=== PATIENT | male | born 1990 | race Caucasian/White ===

== ENCOUNTER 2020-07-06 10:17 | Emergency (ER) | payer BC, SELFPAY ==
--- NOTE | 2020-07-06 | ECG_ITS ---
Test Reason : CHEST PRESSURE Blood Pressure : / mmHG Vent. Rate : 096 BPM Atrial Rate : 096 BPM P-R Int : 160 ms QRS Dur : 090 ms QT Int : 348 ms P-R-T Axes : 071 058 030 degrees QTc Int : 439 ms Normal sinus rhythm Normal ECG No previous ECGs available Referred By: Marlen Boyer Electronically Signed By:RALPH FLYNN MD
[2020-07-06 10:31] VITALS: BP 125/72; PULSE 89; RESP 17; TEMP 36.7; O2SAT 99; BMI 29.8
--- NOTE | 2020-07-06 10:53 | XR_ITS ---
EXAMINATION: XR CHEST CLINICAL INFORMATION: Chest pain COMPARISON: None TECHNIQUE: 2 views of the chest were obtained. FINDINGS: No significant abnormality is noted involving the heart, lungs, mediastinum, bony thorax or soft tissues. XR/XR chest 2V IMPRESSION: Unremarkable examination.
[2020-07-06 11:23] LABS: MANUAL DIFF FLAG NO
[2020-07-06 11:27] LABS: Basophils Absolute Auto 0.1 X10*3/uL (0.0-0.2); Basophils Percent Auto 0.8 % (0-2); Eosinophils Absolute Auto 0.5 X10*3/uL (0.0-0.4); Eosinophils Percent Auto 7.5 % (0-4); Hematocrit 39.5 % (42-52); Hemoglobin 13.9 g/dl (14.0-18.0); Imm Gran Abs Auto 0.02 X10*3/uL (0.00-0.03); Imm Gran Pct Auto 0.3 % (0.0-0.4); Lymphocytes Absolute Auto 1.9 X10*3/uL (1.2-4.9); Lymphocytes Percent Auto 28.6 % (20-40); Mean Corpuscular HGB Conc 35.2 g/dl (31.0-36.0); Mean Corpuscular Hemoglobin 30.5 pg (27.0-33.0); Mean Corpuscular Volume 86.8 fL (80-98); Mean Platelet Volume 8.6 fL (9.4-12.4); Monocytes Absolute Auto 0.6 X10*3/uL (0.1-1.2); Neutrophils Absolute Auto 3.5 X10*3/uL (2.0-8.3); Neutrophils Percent Auto 53.8 % (45-73); Platelet Count 216 X10*3/uL (160-400); Red Blood Count 4.55 X10*6/uL (4.60-5.80); White Blood Count 6.5 X10*3/uL (4.8-10.8)
[2020-07-06 11:31] LABS: Prothrombin Time 11.4 SEC (10.8-13.0)
[2020-07-06 11:33] LABS: Partial Thromboplastin Time 34.5 SEC (24.1-38.0)
[2020-07-06 11:34] LABS: D Dimer < 200 NG/ML
--- NOTE | 2020-07-06 11:35 | ED_ITS ---
HPI - Arrhythmia/Palpitations General Chief Complaint: Arrhythmia/Palpitations Stated Complaint: CHEST PRESSURE DIFF BREATHING Time Seen by Provider: 07/06/20 10:52 Source: patient Mode of arrival: ambulatory Limitations: no limitations History of Present Illness HPI narrative: patient presents to the ED for resolved chest pain, difficulty breathing, and numbness / tingling in upper and lower extremities. Patient states symptoms resolved after taking Ativan this morning. Patient states this has been occurring off and on for the past week. Patient denies any recent travel, recent surgery, any estrogen hormonal use, recent trauma, or history of blood clots. Patient denies any drug use. Patient states no history of anyone in his family having heart attack less than 40 years old. Patient denies any w eight loss, weight gain, or change in temperature sensation. Presently patient is asymptomatic. Patient denies any shortness of breath. Patient states he was seen at [facility] and everything was normal. Related Data Allergies Allergy/AdvReac Type Severity Reaction Status Date / Time No Known Allergies Allergy Verified 07/06/20 10:53 Review of Systems Review of Systems: Yes all other systems are reviewed and are negative Constitutional: Constitutional: Reports as per HPI, Reports no additional constitutional complaints and Denies snoring Eyes: Eyes: Reports as per HPI, Reports no additional eye complaints, Denies blind spots, Denies blurry vision, Denies exophthalmos and Denies change in vision ENT: Reports system reviewed and no additional complaints, except as documented, Reports as per HPI, Denies Normal hearing present, Denies bleeding gums, Denies dysphagia, Denies vertigo, Denies dizziness, Denies odynophagia, Denies sore throat, Denies throat swelling, Denies tongue swelling and Denies widening between teeth Cardiovascular: Cardiovascular: Reports chest pain ( Resolved), Denies chest pain at rest, Denies chest pain with activity, Denies dyspnea, Denies dyspnea on exertion, Denies orthopnea and Denies paroxysmal nocturnal dyspnea Respiratory: Respiratory: Reports as per HPI, Reports no additional respiratory complaints, Reports no additional respiratory complaints, Denies change in phlegm color, Denies chest congestion, Denies cough, Denies excessive phlegm production, Denies pain on inspiration, Denies pain with cough, Denies dyspnea, Denies dyspnea on exertion, Denies snoring and Denies stridor Gastrointestinal: Gastrointestinal: Reports as per HPI, Reports no additional gastrointestinal complaints, Denies abdominal pain, Denies belching, Denies melena, Denies bloating, Denies hematochezia, Denies change in bowel habits, Denies tenesmus, Denies change in stool character, Denies coffee ground emesis, Denies constipation, Denies GI cramping, Denies dysphagia, Denies excessive flatus, Denies early satiety, Denies dyspepsia, Denies odynophagia, Denies vomiting and Denies hematemesis Genitourinary: Genitourinary: Reports no additional male genitourinary complaints, Reports as per HPI, Denies difficulty urinating, Denies dysuria, Denies flank pain, Denies nocturia, Denies testicular pain, Denies urinary frequency, Denies urinary hesitancy, Denies urinary incontinence and Denies urinary urgency Musculoskeletal: Musculoskeletal: Reports no additional musculoskeletal complaints and Reports as per HPI Neurologic: Reports system reviewed and no additional complaints, except as documented, Reports as per HPI, Denies Normal hearing present, Denies Neuro- related abnormal movements, Denies abnormal gait, Denies behavioral changes, Denies burning sensations, Denies confusion, Denies vertigo and Denies dizziness Psychiatric: Psychiatric: Reports no additional psychiatric complaints, Reports as per HPI, Reports abnormal sleep pattern, Reports anxiety, Denies b ehavioral changes and Denies confusion Allergic/Immunologic: Allergic/Immunologic: Denies tongue swelling PMFSH Past Medical History Medical History No known health problems Social History Social History Smoking Status: Current every day smoker Use of substances other than those prescribed or required for medical reasons: No Advance Directives: No Advance Directives Information Provided: Yes Physical Exam Vital Signs: Vital Signs: Vital Signs Temp Pulse Resp BP Pulse Ox 07/06/20 12:36 97.9 F 89 14 106/60 98 07/06/20 10:31 98.1 F 89 17 125/72 99 Body Mass Index 29.8 Const: General: cooperative, healthy appearing, comfortable, no acute distress, well developed, alert and awake; No confusion Orientation/consciousness: oriented to person, oriented to place, oriented to time, patient oriented x3 and No confusion HENMT: Head: Yes normal to inspection and Yes No palpable skull fracture present Eyes: General: appearance normal, both eyes and all related structures Neck: Neck: Yes normal visual inspection, Yes full ROM, No no lymphadenopathy and No no meningeal signs Chest: Chest palpation & inspection: normal inspection of the chest, normal palpation of entire chest wall and no localized rib tenderness Resp: Effort & Inspection: normal respiratory effort, able to speak in complete sentences, no grunting, not labored, no nasal flaring, no retractions, no segmental paradox chest wall movement, no stridor, not tachypneic, no tracheal deviation, no tripod positioning, No prolonged expiratory phase and No symmetric chest movement Cardio: Jugular venous distension: no JVD Rhythm: regular rhythm Heart sounds: S1 normal heart sound present and S2 normal heart sound present GI: Inspection: Yes normal to inspection Percussion: Yes normal to percussion Auscultation: normal bowel sounds : General: No CVA tenderness and Yes no CVA tenderness Back/Spine/Pelvis: Back: no CVA tenderness, No CVA tenderness and No back tenderness Skin: General skin exam: no rashes or lesions noted Neuro: General: oriented to person, oriented to place, oriented to time, patient oriented x3, gait normal, No no meningeal signs, CN's II-XI intact bilaterally and No confusion Cranial nerves: No Normal hearing present Extrem: General: Yes normal to inspection and Yes full ROM Psych: Appearance: grossly normal, well kempt and not disheveled Course Course Course Narrative: patient presently not any distress. Vital signs are stable. History physical exam indicate anxiety. Patient presently is asymptomatic. Patient will have a medical workup to rule out GA or PE. Patient will have EKG, troponin, basic labs, and D-dimer. Reevaluation(s) Reevaluation #1: patient presently not having any chest pain or shortness of breath in the ED. Patient is asymptomatic. Patient's EKG is normal. Patient's troponin negative. Patient's D-dimer negative and has a PERC score of 0. Presently patient is not having GA or PE. Negative for any pneumonia, pneumothorax, hemothorax. Time: 13:03 MDM - Arrhythmia/Palpitations MDM Narrative Medical decision making narrative: anxiety/chest pain Differential Diagnosis Differential diagnosis: Likely palpitations and anxiety Lab Data Result diagrams: 07/06/20 11:18 07/06/20 11:18 Labs: Lab Results 07/06/20 07/06/20 07/06/20 Range/Units 11:18 11:18 11:18 WBC 6.5 (4.8-10.8) X10*3/uL RBC 4.55 L (4.60-5.80) X10*6/uL Hgb 13.9 L (14.0-18.0) g/dl Hct 39.5 L (42-52) % MCV 86.8 (80-98) fL MCH 30.5 (27.0-33.0) pg MCHC 35.2 (31.0-36.0) g/dl RDW 12.0 (11.0-16.0) % Plt Count 216 (160-400) X10*3/uL MPV 8.6 L (9.4-12.4) fL Immature Gran % (Auto) 0.3 (0.0-0.4) % Neut % (Auto) 53.8 (45-73) % Lymph % (Auto) 28.6 (20-40) % [place] % (Auto) 9.0 (2-11) % Eos % (Auto) 7.5 H (0-4) % Baso % (Auto) 0.8 (0-2) % Lymph # (Auto) 1.9 (1.2-4.9) X10*3/uL [place] # (Auto) 0.6 (0.1-1.2) X10*3/uL Eos # (Auto) 0.5 H (0.0-0.4) X10*3/uL Baso # (Auto) 0.1 (0.0-0.2) X10*3/uL Abs Immat Gran (auto) 0.02 (0.00-0.03) X10*3/uL Absolute Neuts (auto) 3.5 (2.0-8.3) X10*3/uL Absolute Nucleated RBC 0.000 (0.0-0.012) X10*3/uL Nucleated RBC % (auto) 0.0 (0.0-0.2) /100WBC PT 11.4 (10.8-13.0) SEC INR 1.0 (0.9-1.1) APTT 34.5 (24.1-38.0) SEC D-Dimer < 200 NG/ML Sodium 139 (135-145) mmol/L Potassium 4.9 (3.3-5.1) mmol/l Chloride 104 (96-108) mmol/L Carbon Dioxide 26 (22-29) mmol/L Anion Gap 14 (12-20) BUN 15 (9-16) mg/dL Creatinine 0.83 (0.5-1.4) mg/dL Estim Creat Clear Calc 159.1 Estimated GFR > 60 Random Glucose 68 (60-115) mg/dL Calcium 9.3 (8.4-10.2) mg/dL Total Bilirubin 0.7 (0.0-1.0) mg/dL AST 26 (5-37) U/L ALT 27 (0-40) U/L Alkaline Phosphatase 62 (39-117) U/L Troponin I High Sens (<3.5-35.0) ng/L Total Protein 6.9 (6.5-8.0) g/dL Albumin 4.5 (3.5-5.0) g/dL TSH 0.92 (0.32-4.0) mIU/mL Coronavirus (PCR) (Negative) COVID-19 PCR 07/06/20 07/06/20 Range/Units 11:18 12:40 WBC (4.8-10.8) X10*3/uL RBC (4.60-5.80) X10*6/uL Hgb (14.0-18.0) g/dl Hct (42-52) % MCV (80-98) fL MCH (27.0-33.0) pg MCHC (31.0-36.0) g/dl RDW (11.0-16.0) % Plt Count (160-400) X10*3/uL MPV (9.4-12.4) fL Immature Gran % (Auto) (0.0-0.4) % Neut % (Auto) (45-73) % Lymph % (Auto) (20-40) % [place] % (Auto) (2-11) % Eos % (Auto) (0-4) % Baso % (Auto) (0-2) % Lymph # (Auto) (1.2-4.9) X10*3/uL [place] # (Auto) (0.1-1.2) X10*3/uL Eos # (Auto) (0.0-0.4) X10*3/uL Baso # (Auto) (0.0-0.2) X10*3/uL Abs Immat Gran (auto) (0.00-0.03) X10*3/uL Absolute Neuts (auto) (2.0-8.3) X10*3/uL Absolute Nucleated RBC (0.0-0.012) X10*3/uL Nucleated RBC % (auto) (0.0-0.2) /100WBC PT (10.8-13.0) SEC INR (0.9-1.1) APTT (24.1-38.0) SEC D-Dimer NG/ML Sodium (135-145) mmol/L Potassium (3.3-5.1) mmol/l Chloride (96-108) mmol/L Carbon Dioxide (22-29) mmol/L Anion Gap (12-20) BUN (9-16) mg/dL Creatinine (0.5-1.4) mg/dL Estim Creat Clear Calc Estimated GFR Random Glucose (60-115) mg/dL Calcium (8.4-10.2) mg/dL Total Bilirubin (0.0-1.0) mg/dL AST (5-37) U/L ALT (0-40) U/L Alkaline Phosphatase (39-117) U/L Troponin I High Sens < 3.5 (<3.5-35.0) ng/L Total Protein (6.5-8.0) g/dL Albumin (3.5-5.0) g/dL TSH (0.32-4.0) mIU/mL Coronavirus (PCR) NEGATIVE (Negative) COVID-19 PCR Cancelled ECG Data Interpretation: normal sinus rhythm. Ventricular rate 96. AK interval 160. normal EKG. Negative STEMI Discharge Plan Discharge Clinical Impression: Palpitations, Chest pain Patient Disposition: Home, Self-Care Instructions: Chest Pain (ED), Heart Palpitations (ED) Additional Instructions: return to the ED immediately for shortness of breath, swelling of lower extremities, calf pain, coughing up blood, fever, chills, chest pain on exertion, night sweats, or any other concerning symptoms. Referrals: Stella Harrison MD [Primary Care Provider] - 2 days ( Palpitations) Stand Alone Forms: Work/School Release Interventions: ED Discharge Assessment Last Done: 07/06/20 13:38 Discharge Date/Time: 07/06/20 13:38
[2020-07-06 12:00] LABS: Alanine Aminotransferase 27 U/L (0-40); Albumin Level 4.5 g/dL (3.5-5.0); Alkaline Phosphatase 62 U/L (39-117); Anion Gap 14 (12-20); Aspartate Amino Transferase 26 U/L (5-37); Bilirubin Total 0.7 mg/dL (0.0-1.0); Blood Urea Nitrogen 15 mg/dL (9-16); Calcium 9.3 mg/dL (8.4-10.2); Carbon Dioxide 26 mmol/L (22-29); Chloride 104 mmol/L (96-108); Creatinine Clr Calc Pharmacy 159.1; Estimated Glomerular Filt Rate > 60; Glucose Random 68 mg/dL (60-115); Potassium 4.9 mmol/l (3.3-5.1); Sodium 139 mmol/L (135-145); Total Protein 6.9 g/dL (6.5-8.0)
[2020-07-06 12:04] LABS: Troponin-I High Sensitivity < 3.5 ng/L (<3.5-35.0)
[2020-07-06 12:30] LABS: TSH reflex Free T4 0.92 mIU/mL (0.32-4.0)
[2020-07-06 12:36] VITALS: BP 106/60; PULSE 89; RESP 14; TEMP 36.6; O2SAT 98
[2020-07-06 13:45] LABS: SARS COV2 PCR INHOUSE NEGATIVE (Negative)
== END 2020-07-06 13:38 | disposition home or self-care (01) ==
PROVIDERS: Physician Assistant; Emergency Provider Emergency Medicine; PCP Family Medicine
DX: R07.9 Chest pain, unspecified (principal); R00.2 Palpitations; F17.200 Nicotine dependence, unspecified, uncomplicated; Z71.6 Tobacco abuse counseling
CPT/HCPCS: 36415; 71046; 80053; 84443; 84484; 85025; 85379; 85610; 85730; 93005; 99283; 99285; U0003

== ENCOUNTER 2020-07-15 16:03 | Emergency (ER) | payer BC, SELFPAY ==
[2020-07-15 17:47] VITALS: BP 127/75; PULSE 72; RESP 16; TEMP 36.9; O2SAT 100; BMI 29.1
--- NOTE | 2020-07-15 18:21 | US_ITS ---
EXAMINATION: US ABDOMEN LIMITED CLINICAL INFORMATION: Right upper quadrant and epigastric pain. COMPARISON: Renal ultrasound 07/15/2006 TECHNIQUE: Real-time imaging of the right upper quadrant abdominal viscera. FINDINGS: PANCREAS: The pancreas was obscured by bowel gas and could not be adequately evaluated. The visualized portions appear unremarkable. LIVER: The liver is normal in size. The liver contour is normal. Parenchymal echogenicity is normal. No focal hepatic lesion. There is no intrahepatic biliary duct dilatation seen. GALLBLADDER: The gallbladder is physiologically distended without evidence of stones, sludge, polyps, wall thickening or pericholecystic fluid. COMMON BILE DUCT: Normal in caliber measuring 0.2 cm in diameter. RIGHT KIDNEY: No hydronephrosis. No renal calculi or focal parenchymal lesions. The kidney measures 11.1 cm in maximum dimension. FREE FLUID: None. US/US abdomen limited IMPRESSION: Negative exam. The pancreas was suboptimally visualized.
--- NOTE | 2020-07-15 19:23 | ED.ABDPAIN ---
HPI - Abdominal Pain General Chief Complaint: Abdominal Pain Stated Complaint: abdominal pain Time Seen by Provider: 07/15/20 16:20 Source: patient Mode of arrival: ambulatory Limitations: no limitations History of Present Illness HPI narrative: Patient comes to emergency room complaining of epigastric pain and right upper quadrant pain. Patient reports 1 episode of vomiting. Patient reports that the pain is epigastric, radiating towards the upper quadrants and his back. Any food makes the pain worse. Denies diarrhea Related Data Previous Rx's Medication Instructions Recorded omeprazole 40 mg PO DAILY #14 cap 07/15/20 Allergies Allergy/AdvReac Type Severity Reaction Status Date / Time No Known Allergies Allergy Verified 07/06/20 10:53 Review of Systems Review of Systems Constitutional : No Weight loss, No Fever, No Chills, No Night Sweats, No Fatigue, No Malaise ENT/Mouth : No Hearing loss, No Ear Pain, No Nasal Congestion, No Sinus Pain, No Hoarseness, No sore throat, No Rhinorrhea, No Swallowing Difficulty Eyes: No Eye Pain, No Swelling, No Redness, No Foreign Body, No Discharge, No Vision Changes Cardiovascular : No Chest Pain, No SOB, No Dyspnea on Exertion, No Orthopnea, No Edema, No Palpitations Respiratory : No Cough, No Sputum, No Wheezing, No Smoke Exposure, No Dyspnea Gastrointestinal : complaining of nausea, vomiting which self-resolved, no diarrhea, complaining of epigastric pain radiating towards the back and the right and left upper quadrants. Genitourinary : no irregular bleeding, No Dysuria, No Urinary Frequency, No Hematuria, No Urinary Incontinence, No Urgency, No Flank Pain, No Urinary Flow Changes, No Hesitancy Musculoskeletal : No joint pain, No Myalgias, No Joint Swelling Skin : No Skin Lesions, No rash Neuro : No Weakness, No Numbness, No Paresthesias, No Loss of Consciousness, No Dizziness, No Headache Psych : No Anxiety/Panic, No Depression, No SI/HI/AH/VH, No Social Issues, Heme/Lymph: No Bruising, No Bleeding,No Lymphadenopathy Endocrine : No Polyuria, No Polydipsia, No Temperature Intolerance Physical Exam Vital Signs: Vital Signs: Last Vital Signs Temp 98.4 F 07/15/20 17:47 Pulse 72 07/15/20 17:47 Resp 16 07/15/20 17:47 BP 127/75 07/15/20 17:47 Pulse Ox 100 07/15/20 17:47 Body Mass Index 29.1 Appearance: Alert. Oriented X3. No acute distress. Eyes: Pupils equal, round and reactive to light. ENT: Pharynx normal. Neck: Normal inspection. Neck supple. No lymph nodes noted. No crepitus CVS: Normal heart rate and rhythm. Pulses normal. Normal S1 and S2 Respiratory: No respiratory distress. Breath sounds normal. No Wheezing. No rales Abdomen: Soft, Mild tenderness to palpation in epigastric area, no Justin sign. No rigidity. No distention. good BS x4 Skin: Skin warm and dry. Normal skin color. Normal skin turgor. Extremities: No lower extremity edema. No lower extremity edema. No Lacerations. No Rash Neuro: Oriented X 3. No motor deficit. No sensory deficit. Moving all extermities. No slurred speech. Course Course Course Narrative: I discussed the labs and imaging with the patient, patient likely has peptic ulcer versus gastritis. MDM - Abdominal Pain Lab Data Result diagrams: 07/15/20 19:29 07/15/20 19:29 Labs: Lab Results 07/15/20 07/15/20 Range/Units 19:29 19:29 WBC 8.5 (4.8-10.8) X10*3/uL RBC 4.47 L (4.60-5.80) X10*6/uL Hgb 13.3 L (14.0-18.0) g/dl Hct 38.6 L (42-52) % MCV 86.4 (80-98) fL MCH 29.8 (27.0-33.0) pg MCHC 34.5 (31.0-36.0) g/dl RDW 11.9 (11.0-16.0) % Plt Count 202 (160-400) X10*3/uL MPV 8.7 L (9.4-12.4) fL Immature Gran % (Auto) 0.1 (0.0-0.4) % Neut % (Auto) 54.0 (45-73) % Lymph % (Auto) 33.7 (20-40) % [place] % (Auto) 6.5 (2-11) % Eos % (Auto) 5.1 H (0-4) % Baso % (Auto) 0.6 (0-2) % Lymph # (Auto) 2.9 (1.2-4.9) X10*3/uL [place] # (Auto) 0.6 (0.1-1.2) X10*3/uL Eos # (Auto) 0.4 (0.0-0.4) X10*3/uL Baso # (Auto) 0.1 (0.0-0.2) X10*3/uL Abs Immat Gran (auto) 0.01 (0.00-0.03) X10*3/uL Absolute Neuts (auto) 4.6 (2.0-8.3) X10*3/uL Absolute Nucleated RBC 0.000 (0.0-0.012) X10*3/uL Nucleated RBC % (auto) 0.0 (0.0-0.2) /100WBC Sodium 136 (135-145) mmol/L Potassium 4.3 (3.3-5.1) mmol/l Chloride 103 (96-108) mmol/L Carbon Dioxide 25 (22-29) mmol/L Anion Gap 12 (12-20) BUN 16 (9-16) mg/dL Creatinine 1.05 (0.5-1.4) mg/dL Estim Creat Clear Calc 124.5 Estimated GFR > 60 Random Glucose 74 (60-115) mg/dL Calcium 9.1 (8.4-10.2) mg/dL Total Bilirubin 0.4 (0.0-1.0) mg/dL Direct Bilirubin 0.2 (0.0-0.5) mg/dL AST 22 (5-37) U/L ALT 23 (0-40) U/L Alkaline Phosphatase 52 (39-117) U/L Total Protein 6.5 (6.5-8.0) g/dL Albumin 4.3 (3.5-5.0) g/dL Lipase 20 (8-78) U/L Imaging Data US - abdomen: Radiologist's impression: PANCREAS: The pancreas was obscured by bowel gas and could not be adequately evaluated. The visualized portions appear unremarkable. LIVER: The liver is normal in size. The liver contour is normal. Parenchymal echogenicity is normal. No focal hepatic lesion. There is no intrahepatic biliary duct dilatation seen. GALLBLADDER: The gallbladder is physiologically distended without evidence of stones, sludge, polyps, wall thickening or pericholecystic fluid. COMMON BILE DUCT: Normal in caliber measuring 0.2 cm in diameter. RIGHT KIDNEY: No hydronephrosis. No renal calculi or focal parenchymal lesions. The kidney measures 11.1 cm in maximum dimension. FREE FLUID: None. US/US abdomen limited IMPRESSION: Negative exam. The pancreas was suboptimally visualized. Discharge Plan Discharge Clinical Impression: Gastritis Qualifiers: Gastritis type: other gastritis Chronicity: unspecified Gastritis bleeding: without bleeding Qualified Code(s): K29.60 - Other gastritis without bleeding Patient Disposition: Home, Self-Care Instructions: Gastritis (ED) Additional Instructions: Please follow-up with your primary care physician tomorrow. If you have any worsening or new symptoms, please return to the emergency room or call 911 Prescriptions: New omeprazole 40 mg capsule,delayed release(DR/EC) 40 mg PO DAILY Qty: 14 RF: 0 PMFSH Past Medical History Medical History No known health problems Social History Social History Alcohol intake: unknown Smoking Status: Current every day smoker Use of substances other than those prescribed or required for medical reasons: No Advance Directives: No Advance Directives Information Provided: Yes
[2020-07-15] MEDS: Lidocaine HCl Viscous 2 % 15 ML SOLUTION MUCOUS MEM (19:32)
[2020-07-15] MEDS: Magnesium Hydrox/Alum Hydrox 30 ML ORAL.SUSP PO (19:32)
[2020-07-15 19:35] LABS: Basophils Absolute Auto 0.1 X10*3/uL (0.0-0.2); Basophils Percent Auto 0.6 % (0-2); Eosinophils Absolute Auto 0.4 X10*3/uL (0.0-0.4); Eosinophils Percent Auto 5.1 % (0-4); Hematocrit 38.6 % (42-52); Hemoglobin 13.3 g/dl (14.0-18.0); Imm Gran Abs Auto 0.01 X10*3/uL (0.00-0.03); Imm Gran Pct Auto 0.1 % (0.0-0.4); Lymphocytes Absolute Auto 2.9 X10*3/uL (1.2-4.9); Lymphocytes Percent Auto 33.7 % (20-40); MANUAL DIFF FLAG NO; Mean Corpuscular HGB Conc 34.5 g/dl (31.0-36.0); Mean Corpuscular Hemoglobin 29.8 pg (27.0-33.0); Mean Corpuscular Volume 86.4 fL (80-98); Mean Platelet Volume 8.7 fL (9.4-12.4); Monocytes Absolute Auto 0.6 X10*3/uL (0.1-1.2); Monocytes Percent Auto 6.5 % (2-11); Neutrophils Absolute Auto 4.6 X10*3/uL (2.0-8.3); Platelet Count 202 X10*3/uL (160-400); Red Blood Count 4.47 X10*6/uL (4.60-5.80); Red Cell Distribution Width 11.9 % (11.0-16.0); White Blood Count 8.5 X10*3/uL (4.8-10.8)
[2020-07-15 20:06] LABS: Alanine Aminotransferase 23 U/L (0-40); Albumin Level 4.3 g/dL (3.5-5.0); Alkaline Phosphatase 52 U/L (39-117); Anion Gap 12 (12-20); Aspartate Amino Transferase 22 U/L (5-37); Bilirubin Direct 0.2 mg/dL (0.0-0.5); Bilirubin Total 0.4 mg/dL (0.0-1.0); Blood Urea Nitrogen 16 mg/dL (9-16); Calcium 9.1 mg/dL (8.4-10.2); Carbon Dioxide 25 mmol/L (22-29); Chloride 103 mmol/L (96-108); Creatinine Clr Calc Pharmacy 124.5; Estimated Glomerular Filt Rate > 60; Glucose Random 74 mg/dL (60-115); Lipase 20 U/L (8-78); Potassium 4.3 mmol/l (3.3-5.1); Sodium 136 mmol/L (135-145); Total Protein 6.5 g/dL (6.5-8.0)
[2020-07-15 20:27] VITALS: BP 115/76; PULSE 77; RESP 16; O2SAT 97
== END 2020-07-15 20:41 | disposition home or self-care (01) ==
PROVIDERS: Emergency Provider Emergency Medicine; PCP Family Medicine
DX: K29.60 Other gastritis without bleeding (principal); R10.13 Epigastric pain; Z79.899 Other long term (current) drug therapy; F17.200 Nicotine dependence, unspecified, uncomplicated; Z71.6 Tobacco abuse counseling
CPT/HCPCS: 36415; 76705; 80048; 80076; 83690; 85025; 99284

== ENCOUNTER 2020-07-31 11:51 | Day surgery (SDC) | payer BC, SELFPAY ==
--- NOTE | 2020-07-30 11:43 | HO.ANESPROP2 ---
Documented by User: Kami Stevensney 07/30/20 11:46 HPI - Anesthesia Eval Consult details Narrative: 29yo M for Upper Endoscopy PMFSH Past Medical History Medical History H/O gynecomastia Nephrolithiasis No known health problems Seasonal allergies Surgical History Surgical History S/P excision of lipoma Social History Social History Alcohol intake: unknown Smoking Status: Current every day smoker Use of substances other than those prescribed or required for medical reasons: No Have you been hit, kicked, punched, or otherwise hurt by someone within the past year? If so, by whom?: No Advance Directives: No Advance Directives Information Provided: No Meds Allergies Allergy/AdvReac Type Severity Reaction Status Date / Time No Known Allergies Allergy Verified 07/06/20 10:53 Exam Exam Date and Time: July 30, 2020 1143 Pertinent Lab Results Pertinent Lab Results: Laboratory Tests 07/15/20 07/15/20 19:29 19:29 WBC 8.5 Hgb 13.3 L Hct 38.6 L Plt Count 202 Sodium 136 Potassium 4.3 Chloride 103 Carbon Dioxide 25 BUN 16 Creatinine 1.05 Narrative Narrative: EKG 07/06/20: NSR Assessment and Plan Assessment Anesthesia Assessment: Chart Reviewed Documented by User: Chase Clayton MD 07/31/20 12:21 [facility] Past Medical History Medical History H/O gynecomastia Nephrolithiasis No known health problems Seasonal allergies Surgical History Surgical History S/P excision of lipoma Social History Social History Alcohol intake: unknown Smoking Status: Current every day smoker Use of substances other than those prescribed or required for medical reasons: No Have you been hit, kicked, punched, or otherwise hurt by someone within the past year? If so, by whom?: No Advance Directives: No Advance Directives Information Provided: No Meds Allergies Allergy/AdvReac Type Severity Reaction Status Date / Time No Known Allergies Allergy Verified 07/06/20 10:53 Exam Airway Mallampati Class: I TM Dist: >3cm Neck ROM: Full Loose/Missing/Broken Teeth: No Heart: rrr Lungs: nl Other: ao Assessment and Plan Assessment Anesthesia Assessment: Anesthesia Plan Discussed and Chart Reviewed Final Anesthetic Review NPO: Yes ASA Class: I Final Preanesthetic Review: No Changes in Pt Med Stat, Meds/Allgs Chart Reviewed, Consent Obtained/Reviewed and Anes Risks/Benef Reviewed Patient Risk: Low Procedure Risk: Low Anesthetic Plan Anesthetic Plan: MAC: Disposition: Standard PACU
[2020-07-30 15:10] VITALS: BMI 29.1
[2020-07-31 11:58] VITALS: BP 127/67; PULSE 88; RESP 18; TEMP 36.1; O2SAT 98
[2020-07-31] MEDS: Lactated Ringers 1,000 ML 100 ML IVCONT (12:08)
[2020-07-31 12:41] VITALS: BP 103/61; PULSE 81; RESP 16; TEMP 36.4; O2SAT 100
--- NOTE | 2020-07-31 12:48 | MHC.SHP ---
Pre-Procedural Eval Section A The patient is an INPATIENT: No Changes since office visit: No Cold of Flu in the past 2 weeks, No New Medical Problems, No Changes in Medication and No Patient answered all questions The History & Physical has been completed within 30 days and I have reviewed it.: Yes Section B Chief Complaint: Epigastric Pain Allergies: Allergies Allergy/AdvReac Type Severity Reaction Status Date / Time No Known Allergies Allergy Verified 07/06/20 10:53 Plan Patient has been examined and remains a candidate for the planned procedure
--- NOTE | 2020-07-31 12:49 | PM.OP ---
Brief Operative Note Date of Service: 07/31/20 Pre-op diagnosis: epigastric pain Post-op diagnosis: same (normal EGD) Procedure: EGD Surgeon: Sanket Hendrix Anesthesia: MAC Estimated blood loss (mL): 2 Pathology: other (biopsies duodenum, antrum, egj) Condition: stable Disposition: PACU
[2020-07-31 12:56] VITALS: BP 108/61; PULSE 80; RESP 13; TEMP 36.4; O2SAT 100
--- NOTE | 2020-07-31 13:29 | HO.POSTANES ---
Post Anesthesia Evaluation Post Anesthesia Evaluation Vital Signs: Vital Signs Temp Pulse Resp BP Pulse Ox 07/31/20 12:56 97.6 F 80 13 108/61 100 07/31/20 12:41 97.6 F 81 16 103/61 100 07/31/20 11:58 97 F 88 18 127/67 98 Anesthesia: Monitored Mental Status: Awake Pain Control: Satisfactory Nausea/Vomiting: None Hydration: Adequate Anesthesia-Related Issues: No Anes. Related Issues
--- NOTE | 2020-07-31 15:27 | OP_ITS ---
SURGEON: Sanket Hendrix MD INDICATIONS: Epigastric pain. PREOPERATIVE DIAGNOSIS: POSTOPERATIVE DIAGNOSIS: PROCEDURE PERFORMED: Upper endoscopy with biopsy. ESTIMATED BLOOD LOSS: COMPLICATIONS: ANESTHESIA: ASSISTANTS: SPECIMENS: MEDICATIONS: Monitored anesthesia care. DESCRIPTION OF PROCEDURE: History and physical performed. The risks and benefits of the procedure were explained to the patient. Informed consent was obtained. The patient was placed in the left lateral decubitus position. The Olympus video gastroscope was introduced into the esophagus, stomach, and duodenum. Examination was performed and the scope was removed. He tolerated the procedure well and was taken to recovery area in stable condition. FINDINGS: Esophagus: The esophagus was normal. There was no esophagitis. The EG junction was slightly irregular, this was biopsied. Stomach: Stomach showed no evidence of masses, ulcers, or polyps. Antral biopsies were obtained to rule out H pylori. Duodenum: The bulb and second portion were normal. Biopsies were obtained from the second portion of the duodenum. IMPRESSION: Normal upper endoscopy. RECOMMENDATIONS: 1. Continue omeprazole 40 mg daily for a total of 8 weeks. 2. Follow up the biopsy results. MD BRIANA Palma/JANETTE / [id number]
== END 2020-07-31 13:49 | disposition home or self-care (01) ==
PROVIDERS: PCP Family Medicine; Visit Provider Internal Medicine Gastroenterology
PROC: 0DJ08ZZ Inspection of Upper Intestinal Tract, Via Natural or Artificial Opening Endoscopic (ICD-10-PCS; CPT 43235; principal; 2020-07-31 13:00)
DX: R10.13 Epigastric pain (principal); K92.0 Hematemesis; K20.90 Esophagitis, unspecified without bleeding; R19.5 Other fecal abnormalities; D64.9 Anemia, unspecified; F17.210 Nicotine dependence, cigarettes, uncomplicated; Z79.899 Other long term (current) drug therapy
CPT/HCPCS: 43239; 88305; 88342

== ENCOUNTER 2021-05-02 10:33 | Emergency (ER) | payer OTHER, SELFPAY ==
--- NOTE | 2021-05-02 | ECG_ITS ---
Test Reason : CP Blood Pressure : / mmHG Vent. Rate : 080 BPM Atrial Rate : 080 BPM P-R Int : 154 ms QRS Dur : 086 ms QT Int : 340 ms P-R-T Axes : 073 053 033 degrees QTc Int : 392 ms Normal sinus rhythm Normal ECG When compared with ECG of 06-JUL-2020 10:28, No significant change was found Referred By: Tanja Harrell Electronically Signed By:NEO THOMPSON
--- NOTE | ~2021-05-02 | XR_ITS ---
EXAMINATION: XR CHEST CLINICAL INFORMATION: Chest pain COMPARISON: None TECHNIQUE: Frontal view of the chest was obtained. FINDINGS: No significant abnormality is noted involving the heart, lungs, mediastinum, bony thorax or soft tissues. XR/XR chest 1V IMPRESSION: Unremarkable chest examination.
[2021-05-02 10:47] VITALS: BP 117/73; PULSE 76; RESP 16; O2SAT 98; BMI 30.5
--- NOTE | 2021-05-02 10:48 | ED.CHESTPAIN ---
HPI - Chest Pain General Chief Complaint: Chest Pain Stated Complaint: chest pain x 3 days Time Seen by Provider: 05/02/21 10:48 Source: patient Mode of arrival: ambulatory Limitations: no limitations History of Present Illness HPI narrative: 30 yo male otherwise healthy here with chest pain dizziness and malaise no other associated symptoms - had his Moderna vaccine on Thursday MD complaint: chest pain Onset (ago): day(s) (4) Timing of current episode: constant Prior episodes: No Onset: during rest Pain location: left chest Pain radiation: none Severity: moderate Quality: tightness Relieving factors: nothing Exacerbating factors: nothing Context: other (received COVID vaccine on Thursday) Associated symptoms: other (dizziness, chest pain, doesn't feel well) Treatment prior to arrival: none Related Data Home Medications Medication Instructions Recorded Confirmed bupropion HCl 300 mg 24 hr tablet, 300 mg PO DAILY 11/15/20 extended release nicotine (polacrilex) 4 mg gum 4 mg PO Q2H 11/15/20 Previous Rx's Medication Instructions Recorded omeprazole 40 mg capsule,delayed 40 mg PO DAILY #14 cap 07/15/20 release azithromycin 500 mg tablet 500 mg PO DAILY 5 Days #5 tab 10/29/20 prednisone 20 mg tablet 20 mg PO .COMPLEX #18 tab 10/29/20 fluconazole 100 mg tablet 100 mg PO .COMPLEX 10 Days #11 tab 11/15/20 prednisone 10 mg tablet 10 mg PO .COMPLEX #45 tab 11/15/20 cyclobenzaprine 10 mg tablet 10 mg PO TID PRN #14 tab 05/02/21 ondansetron 4 mg disintegrating 4 mg PO Q8H PRN #20 tab 05/02/21 tablet Allergies Allergy/AdvReac Type Severity Reaction Status Date / Time No Known Allergies Allergy Verified 11/15/20 10:50 Review of Systems Review of Systems: Constitutional : No Weight loss, No Fever, No Chills, pos malaise ENT/Mouth : No sore throat, No Rhinorrhea Eyes: No Eye Pain, No Swelling Cardiovascular : pos Chest Pain, no SOB, no Dyspnea on Exertion, No Orthopnea, No Edema, No Palpitations Respiratory : No Cough, No Sputum Gastrointestinal : pos Nausea, No Vomiting, No Diarrhea, No abdominal Pain, No Hematochezia, No Melena Genitourinary : No Dysuria, No Urinary Frequency Musculoskeletal : No joint pain, No Myalgias, No Joint Swelling Skin : No Skin Lesions, No rash Neuro : pos Weakness, No Numbness, No Dizziness, No Headache Psych : No Anxiety/Panic, No Depression Heme/Lymph: No Bruising, No Lymphadenopathy Endocrine : No Polyuria, No Polydipsia All other systems reviewed and are negative [facility] Past Medical History Attestation statement: The following information was validated with the patient. Medical History H/O gynecomastia Nephrolithiasis No known health problems Seasonal allergies Surgical History S/P excision of lipoma Social History Social History Alcohol intake: never Patient Tobacco Use Status: Never used Tobacco Use of substances other than those prescribed or required for medical reasons: No Advance Directives: No Advance Directives Information Provided: No Physical Exam Vital Signs: Vital Signs: Last Vital Signs Pulse 76 05/02/21 10:47 Resp 16 05/02/21 10:47 BP 117/73 05/02/21 10:47 Pulse Ox 98 05/02/21 10:47 Body Mass Index 30.5 Appearance: Alert. Oriented X3. No acute distress. Eyes: Pupils equal, round and reactive to light. ENT: Pharynx normal. Neck: Normal inspection. Neck supple. CVS: Normal heart rate and rhythm. Pulses normal. Respiratory: No respiratory distress. Breath sounds normal. Abdomen: Soft and non-tender. Skin: Skin warm and dry. Normal skin color. Normal skin turgor. Extremities: No lower extremity edema. No calf ttp Neuro: Oriented X 3. No motor deficit. No sensory deficit. Course Course Course Narrative: negative workup stable for DC VS stable, EKG and trop negative MDM - Chest Pain MDM Narrative Medical decision making narrative: 30 yo male otherwise healthy here with chest pain dizziness, nasuea, not feeling right post Moderna vaccine PERC negative, no ACS risk factors, labs, troponin x 1, CXR, overall not toxic appearing, steady gait, stable for DC if workup negative Lab Data Result diagrams: 05/02/21 11:08 05/02/21 11:08 Labs: Lab Results 05/02/21 05/02/21 05/02/21 Range/Units 11:08 11:08 11:08 WBC 6.8 (4.8-10.8) X10*3/uL RBC 4.25 L (4.60-5.80) X10*6/uL Hgb 12.9 L (14.0-18.0) g/dl Hct 36.6 L (42-52) % MCV 86.1 (80-98) fL MCH 30.4 (27.0-33.0) pg MCHC 35.2 (31.0-36.0) g/dl RDW 12.3 (11.0-16.0) % Plt Count 211 (160-400) X10*3/uL MPV 8.5 L (9.4-12.4) fL Immature Gran % (Auto) 0.3 (0.0-0.4) % Neut % (Auto) 51.8 (45-73) % Lymph % (Auto) 33.2 (20-40) % [place] % (Auto) 7.8 (2-11) % Eos % (Auto) 6.3 H (0-4) % Baso % (Auto) 0.6 (0-2) % Lymph # (Auto) 2.3 (1.2-4.9) X10*3/uL [place] # (Auto) 0.5 (0.1-1.2) X10*3/uL Eos # (Auto) 0.4 (0.0-0.4) X10*3/uL Baso # (Auto) 0.0 (0.0-0.2) X10*3/uL Abs Immat Gran (auto) 0.02 (0.00-0.03) X10*3/uL Absolute Neuts (auto) 3.5 (2.0-8.3) X10*3/uL Absolute Nucleated RBC 0.000 (0.0-0.012) X10*3/uL Nucleated RBC % (auto) 0.0 (0.0-0.2) /100WBC Sodium 138 (135-145) mmol/L Potassium 4.6 (3.3-5.1) mmol/L Chloride 105 (96-108) mmol/L Carbon Dioxide 29 (22-29) mmol/L Anion Gap 9 L (12-20) BUN 20 H (9-16) mg/dL Creatinine 1.35 (0.5-1.4) mg/dL Estim Creat Clear Calc 97.9 Estimated GFR > 60 Random Glucose 102 D (60-115) mg/dL Calcium 10.5 H D (8.4-10.2) mg/dL Magnesium 1.9 (1.6-2.6) mg/dL Total Bilirubin 0.4 (0.0-1.0) mg/dL Direct Bilirubin 0.2 (0.0-0.5) mg/dL AST 20 (5-37) U/L ALT 28 (0-40) U/L Alkaline Phosphatase 53 (39-117) U/L Troponin I High Sens < 3.5 (<3.5-35.0) ng/L Total Protein 6.4 L (6.5-8.0) g/dL Albumin 4.2 (3.5-5.0) g/dL COVID-19 ([facility]ALAN) (Negative) COVID-19 Clin Com 05/02/21 Range/Units 11:08 WBC (4.8-10.8) X10*3/uL RBC (4.60-5.80) X10*6/uL Hgb (14.0-18.0) g/dl Hct (42-52) % MCV (80-98) fL MCH (27.0-33.0) pg MCHC (31.0-36.0) g/dl RDW (11.0-16.0) % Plt Count (160-400) X10*3/uL MPV (9.4-12.4) fL Immature Gran % (Auto) (0.0-0.4) % Neut % (Auto) (45-73) % Lymph % (Auto) (20-40) % [place] % (Auto) (2-11) % Eos % (Auto) (0-4) % Baso % (Auto) (0-2) % Lymph # (Auto) (1.2-4.9) X10*3/uL [place] # (Auto) (0.1-1.2) X10*3/uL Eos # (Auto) (0.0-0.4) X10*3/uL Baso # (Auto) (0.0-0.2) X10*3/uL Abs Immat Gran (auto) (0.00-0.03) X10*3/uL Absolute Neuts (auto) (2.0-8.3) X10*3/uL Absolute Nucleated RBC (0.0-0.012) X10*3/uL Nucleated RBC % (auto) (0.0-0.2) /100WBC Sodium (135-145) mmol/L Potassium (3.3-5.1) mmol/L Chloride (96-108) mmol/L Carbon Dioxide (22-29) mmol/L Anion Gap (12-20) BUN (9-16) mg/dL Creatinine (0.5-1.4) mg/dL Estim Creat Clear Calc Estimated GFR Random Glucose (60-115) mg/dL Calcium (8.4-10.2) mg/dL Magnesium (1.6-2.6) mg/dL Total Bilirubin (0.0-1.0) mg/dL Direct Bilirubin (0.0-0.5) mg/dL AST (5-37) U/L ALT (0-40) U/L Alkaline Phosphatase (39-117) U/L Troponin I High Sens (<3.5-35.0) ng/L Total Protein (6.5-8.0) g/dL Albumin (3.5-5.0) g/dL COVID-19 ([facility]AL[facility]) Negative (Negative) COVID-19 Clin Com See Note ECG Data ECG #1: Attestation: I personally reviewed and interpreted this ECG as follows: ECG interpretation date: 05/02/21 ECG interpretation time: 10:51 Interpretation: Rate: 80 Rhythm: NSR [facility]: normal Normal P waves. Normal NIC. Normal QRS complex. ST T wave : no DANIELA, normal qTC: normal prior studies: no acute ischemia The study has been interpreted contemporaneously by me. . Discharge Plan Discharge Clinical Impression: Acute costochondritis Patient Disposition: Home, Self-Care Instructions: Costochondritis (ED) Additional Instructions: return to ED for any worsening symptoms or concerns drink plenty of fluids COVID negative Prescriptions: New cyclobenzaprine 10 mg tablet 10 mg PO TID PRN (Reason: muscle spasm) Qty: 14 RF: 0 ondansetron 4 mg tablet,disintegrating 4 mg PO Q8H PRN (Reason: nausea and vomiting) Qty: 20 RF: 0 No Action omeprazole 40 mg capsule,delayed release(DR/EC) 40 mg PO DAILY Qty: 14 RF: 0 prednisone 20 mg tablet 20 mg PO .COMPLEX Qty: 18 RF: 0 azithromycin 500 mg tablet 500 mg PO DAILY 5 Days Qty: 5 RF: 0 bupropion HCl 300 mg tablet extended release 24 hr 300 mg PO DAILY RF: 0 nicotine (polacrilex) 4 mg gum 4 mg PO Q2H RF: 0 prednisone 10 mg tablet 10 mg PO .COMPLEX Qty: 45 RF: 0 fluconazole 100 mg tablet 100 mg PO .COMPLEX 10 Days Qty: 11 RF: 0 Referrals: Stella Harrison MD [Primary Care Provider] - 2 days (if not better) Stand Alone Forms: Work/School Release
--- NOTE | 2021-05-02 10:59 | PC.NURSE ---
patient states that he got the covid vaccine on this past thursday, unsure if s/s are related
[2021-05-02 11:14] LABS: MANUAL DIFF FLAG NO
[2021-05-02 11:15] LABS: Basophils Percent Auto 0.6 % (0-2); Eosinophils Absolute Auto 0.4 X10*3/uL (0.0-0.4); Eosinophils Percent Auto 6.3 % (0-4); Hematocrit 36.6 % (42-52); Hemoglobin 12.9 g/dl (14.0-18.0); Imm Gran Abs Auto 0.02 X10*3/uL (0.00-0.03); Imm Gran Pct Auto 0.3 % (0.0-0.4); Lymphocytes Absolute Auto 2.3 X10*3/uL (1.2-4.9); Lymphocytes Percent Auto 33.2 % (20-40); Mean Corpuscular HGB Conc 35.2 g/dl (31.0-36.0); Mean Corpuscular Hemoglobin 30.4 pg (27.0-33.0); Mean Corpuscular Volume 86.1 fL (80-98); Mean Platelet Volume 8.5 fL (9.4-12.4); Monocytes Absolute Auto 0.5 X10*3/uL (0.1-1.2); Monocytes Percent Auto 7.8 % (2-11); Neutrophils Absolute Auto 3.5 X10*3/uL (2.0-8.3); Neutrophils Percent Auto 51.8 % (45-73); Platelet Count 211 X10*3/uL (160-400); Red Blood Count 4.25 X10*6/uL (4.60-5.80); Red Cell Distribution Width 12.3 % (11.0-16.0); White Blood Count 6.8 X10*3/uL (4.8-10.8)
[2021-05-02 11:33] LABS: COVID-19 Test Negative (Negative); IDNOW Serial# 9DD0AD1C
[2021-05-02 11:46] LABS: Alanine Aminotransferase 28 U/L (0-40); Albumin Level 4.2 g/dL (3.5-5.0); Alkaline Phosphatase 53 U/L (39-117); Anion Gap 9 (12-20); Aspartate Amino Transferase 20 U/L (5-37); Bilirubin Direct 0.2 mg/dL (0.0-0.5); Bilirubin Total 0.4 mg/dL (0.0-1.0); Blood Urea Nitrogen 20 mg/dL (9-16); Calcium 10.5 mg/dL (8.4-10.2); Carbon Dioxide 29 mmol/L (22-29); Chloride 105 mmol/L (96-108); Creatinine Clr Calc Pharmacy 97.9; Estimated Glomerular Filt Rate > 60; Glucose Random 102 mg/dL (60-115); Magnesium 1.9 mg/dL (1.6-2.6); Potassium 4.6 mmol/L (3.3-5.1); Sodium 138 mmol/L (135-145); Total Protein 6.4 g/dL (6.5-8.0)
[2021-05-02 11:49] LABS: Troponin-I High Sensitivity < 3.5 ng/L (<3.5-35.0)
== END 2021-05-02 12:16 | disposition home or self-care (01) ==
PROVIDERS: Emergency Provider Emergency Medicine; PCP Family Medicine
DX: M94.0 Chondrocostal junction syndrome [Tietze] (principal); Z20.822 Contact with and (suspected) exposure to COVID-19
CPT/HCPCS: 36415; 71045; 80048; 80076; 83735; 84484; 85025; 87635; 93005; 99283

== ENCOUNTER 2021-08-02 17:03 | Emergency (ER) | payer OTHER, SELFPAY ==
--- NOTE | ~2021-08-02 | US_ITS ---
EXAMINATION: US SCROTUM CLINICAL INFORMATION: Abdominal pain that radiates to the right testicle. COMPARISON: None TECHNIQUE: A sonogram of the scrotum was performed assessing hill-scale appearance and color Doppler flow. Spectral Doppler analysis of the arterial and venous flow were performed in the testes bilaterally. FINDINGS: RIGHT: Right testicle measures 3.5 x 2.3 x 2.7 cm, volume 11.3 mL. No focal testicular parenchymal lesions are visualized. Spectral Doppler analysis of the arterial and venous flow is normal in the right testis. Right epididymal head is normal in size. No right hydrocele or varicocele is seen. Right epididymal Doppler flow is normal. There is a 0.5 cm scrotal arabella. LEFT: Left testicle measures 3.2 x 2 x 2.5 cm, volume 8.4 mL. No focal testicular parenchymal lesions are visualized. Spectral Doppler analysis of the arterial and venous flow is normal in the left testis. Left epididymal head is normal in size. No left hydrocele or varicocele is seen. Left epididymal Doppler flow is normal. The bilateral inguinal canals are normal in appearance. No evidence for inguinal hernia. US/US scrotum doppler IMPRESSION: Normal appearance of the bilateral testes. No evidence for testicular torsion.
--- NOTE | ~2021-08-02 | CT_ITS ---
EXAMINATION: CT ABDOMEN AND PELVIS WITHOUT CONTRAST CLINICAL INFORMATION: Right lower quadrant pain. Flank pain. History of kidney stones. COMPARISON: Abdominal ultrasound 07/15/[address] abdomen 07/27/2006. TECHNIQUE: Multidetector volumetric imaging was performed from the superior aspect of the liver through the pubic symphysis. Sagittal and coronal reformatted images were obtained on the technologist's workstation. This CT examination was performed using dose optimization techniques as appropriate, variously including the following: *Automated exposure control *Adjustment of mA and/or kV according to patient size (this includes techniques or standardized protocols for targeted exams where dose is matched to indication/reason for exam; i.e. extremities or head) *Use of iterative reconstruction technique DLP: 840 mGy-cm FINDINGS: Visualized lung bases are well aerated. The liver is normal in size but demonstrates diffusely decreased attenuation. The gallbladder is decompressed but grossly unremarkable. The pancreas, spleen and adrenal glands are unremarkable. Symmetrically sized kidneys. No renal calculi or hydronephrosis bilaterally. Debris/fluid filled stomach which is mildly distended. Normal caliber loops of small and large bowel. Mild colonic diverticulosis without CT evidence to suggest active diverticulitis. Normal appendix. Tiny fat-containing umbilical hernia. Normal caliber abdominal aorta. No gross retroperitoneal lymphadenopathy. The bladder is normal in appearance. The prostate gland is not enlarged. No gross free pelvic fluid. No inguinal lymphadenopathy. No acute osseous abnormality. A few small sclerotic foci within the pelvis statistically represent bone islands. CT/CT abdomen pelvis wo con IMPRESSION: -No renal calculi or hydronephrosis of either kidney. -Diffusely decreased liver attenuation suggesting hepatic steatosis. Correlation with liver enzymes recommended. -Mild colonic diverticulosis. Fleischner guidelines were followed.
--- NOTE | ~2021-08-02 | US_ITS ---
EXAMINATION: US SCROTUM CLINICAL INFORMATION: Abdominal pain that radiates to the right testicle. COMPARISON: None TECHNIQUE: A sonogram of the scrotum was performed assessing hill-scale appearance and color Doppler flow. Spectral Doppler analysis of the arterial and venous flow were performed in the testes bilaterally. FINDINGS: RIGHT: Right testicle measures 3.5 x 2.3 x 2.7 cm, volume 11.3 mL. No focal testicular parenchymal lesions are visualized. Spectral Doppler analysis of the arterial and venous flow is normal in the right testis. Right epididymal head is normal in size. No right hydrocele or varicocele is seen. Right epididymal Doppler flow is normal. There is a 0.5 cm scrotal arabella. LEFT: Left testicle measures 3.2 x 2 x 2.5 cm, volume 8.4 mL. No focal testicular parenchymal lesions are visualized. Spectral Doppler analysis of the arterial and venous flow is normal in the left testis. Left epididymal head is normal in size. No left hydrocele or varicocele is seen. Left epididymal Doppler flow is normal. The bilateral inguinal canals are normal in appearance. No evidence for inguinal hernia. US/US scrotum IMPRESSION: Normal appearance of the bilateral testes. No evidence for testicular torsion.
[2021-08-02 17:08] VITALS: BP 156/99; PULSE 95; RESP 16; TEMP 36.9; O2SAT 99; BMI 32.5
[2021-08-02 17:48] LABS: Appearance Urine CLEAR; Color Urine YELLOW; Glucose Urine UA 100 MG/DL (NEG); Leukocyte Esterase Urine NEG (NEG); Nitrite Urine NEG (NEG); Specific Gravity - Urine 1.025 (1.005-1.025); Urine Blood NEG (NEG); Urine Ketones NEG (NEG); Urine Protein NEG (NEG-TRACE)
--- NOTE | 2021-08-02 18:05 | ED.GENADULT ---
HPI - General Adult General Chief complaint: Abdominal Pain Stated complaint: Lower right abdominal pain Time Seen by Provider: 08/02/21 17:47 Source: patient Mode of arrival: ambulatory Limitations: no limitations History of Present Illness HPI narrative: He 30-year-old male past medical history significant for kidney stones presents to the emergency department with right lower quadrant pain, and right testicular pain X1 day. Patient tells me that this started as a dull ache to his right testicle about a week ago, yesterday he got severe right testicular pain with nausea, and he feels as though it migrated to the right lower quadrant. He describes the right lower quadrant pain is intermittent, severe stabbing pain. He denies nausea or vomiting today. Denies chest pain, shortness of breath, fevers, chills, vomiting, nausea, weakness, recent sick contacts. He has no concerns for STDs/STIs. No history of STDs. Onset (ago): day(s) (1) Location: abdomen (RLQ) and genitals (R. scorotum ) Radiation: abdomen Severity: severe Severity scale (1-10): 10 Quality: stabbing Pain Consistency: constant Relieving factors: none Exacerbating factors: none Associated symptoms: denies other symptoms Treatments prior to arrival: none Related Data Home Medications Medication Instructions Recorded Confirmed bupropion HCl 300 mg 24 hr tablet, 300 mg PO DAILY 11/15/20 extended release nicotine (polacrilex) 4 mg gum 4 mg PO Q2H 11/15/20 cyclobenzaprine 5 mg tablet 5 mg PO BID PRN 05/06/21 Previous Rx's Medication Instructions Recorded omeprazole 40 mg capsule,delayed 40 mg PO DAILY #14 cap 07/15/20 release fluconazole 100 mg tablet 100 mg PO .COMPLEX 10 Days #11 tab 11/15/20 cyclobenzaprine 10 mg tablet 10 mg PO TID PRN #14 tab 05/02/21 ondansetron 4 mg disintegrating 4 mg PO Q8H PRN #20 tab 05/02/21 tablet azithromycin 250 mg tablet See Rx Instructions PO .COMPLEX #6 05/18/21 tab diclofenac sodium 50 mg 50 mg PO BID 7 Days #14 tab 05/18/21 tablet,delayed release doxycycline hyclate 100 mg capsule 100 mg PO BID 10 Days #20 cap 08/02/21 ondansetron 4 mg disintegrating 4 mg PO ONCE PRN #10 tab 08/02/21 tablet Allergies Allergy/AdvReac Type Severity Reaction Status Date / Time cat dander Allergy Severe Facial Verified 08/02/21 17:08 Swelling mold Allergy Intermediate Shortness Verified 08/02/21 17:08 of Breath Review of Systems Review of Systems: Constitutional : No Weight loss, No Fever, No Chills, No Fatigue, No Malaise ENT/Mouth : No sore throat, No Rhinorrhea Eyes: No Eye Pain, No Swelling, No Redness Cardiovascular : No Chest Pain, No SOB, No Dyspnea on Exertion, No Orthopnea, No Edema, No Palpitations Respiratory : No Cough, No Sputum, No Wheezing Gastrointestinal : No Nausea, + Vomiting, No Diarrhea, No Constipation, + abdominal Pain, No Hematochezia, No Melena Genitourinary : No Dysuria, No Urinary Frequency, No Hematuria, +testicular pain Musculoskeletal : No joint pain, No Myalgias, No Joint Swelling Skin : No Skin Lesions, No rash Neuro : No Weakness, No Numbness, No Dizziness, No Headache All other systems reviewed and are negative REPLACED BY [facility] Past Medical History Attestation statement: The following information was validated with the patient. Source: old records reviewed and nursing notes reviewed Medical History H/O gynecomastia Nephrolithiasis No known health problems Seasonal allergies Surgical History S/P excision of lipoma Social History Social History Alcohol intake: never Patient Tobacco Use Status: Never used Tobacco Advance Directives: No Advance Directives Information Provided: No Physical Exam Vital Signs: Vital Signs: Last Vital Signs Temp 98.4 F 08/02/21 17:08 Pulse 95 08/02/21 17:08 Resp 16 08/02/21 17:08 BP 156/99 H 08/02/21 17:08 Pulse Ox 99 08/02/21 17:08 Body Mass Index 32.5 VSS slightly hypertensive. Appearance: Alert.? Oriented X3.? No acute distress.? Head: Normocephalic, atraumatic, no step-offs or deformities Eyes: Pupils equal, round and reactive to light.? ENT: Pharynx normal.? Neck: Normal inspection.? Neck supple.? CVS: Normal heart rate and rhythm.? Pulses normal.? Respiratory: No respiratory distress.? Breath sounds normal.? Abdomen: Soft and + tenderness to RLQ.? Sensative exam: Normal external genitalia, normal appearing penis, circumcised, pain to palpation of right epididymis, no pain to left epididymis. No lumps or masses bilaterally to scrotum. Unable to palpate any indirect or direct hernias bilaterally. No skin lesions or rashes noted. No discharge noted. (chaperoned by MICA Noel) Skin: Skin warm and dry.? Normal skin color.? Normal skin turgor.? Extremities: No lower extremity edema.? No calf ttp. 5/5 strength to bilateral upper and lower extremities Back: No midline tenderness, no C-spine tenderness, full range of motion, + CVA tenderness to right side. Neuro: Oriented X 3.? No motor deficit.? No sensory deficit. Course Reevaluation(s) Reevaluation #1: No leukocytosis, normocytic baseline anemia is noted, urine is clean. NG &CT pending. Likely epiditymitis At this time I will empirically treat patient for gonorrhea, and chlamydia which may be two causative agents of epididymitis. Patient will get discharged home on doxycycline p.o. b.i.d. for 10 days. He will receive his shot of ceftriaxone here. Time: 18:45 Reevaluation #2: Sing out given to Sofia BRIONES Pending CT results, US and remaining lab work Time: 18:50 Medical Decision Making [facility] Narrative Medical decision making narrative: 1815 30-year-old male past medical history significant for renal stones presents to the emergency department with complaints of right-sided scrotal pain, and right lower abdominal pain X1 day. No concern for STDs no hx of STDs. No urinary symptoms, fevers, chills. Upon physical examination patient appears well, vital signs are stable however, he is noted to be slightly hypertensive. Lung sounds are clear. S1-S2 appreciated free of murmurs. Abdomen is soft and tender to palpation in the right lower quadrant. Negative Rovsing sign, Justin's, psoas and obturator. Sensitive exam significant for severe pain with palpation to the epididymis, on the right side. No overlying skin changes. Normal appearing external genitalia. No hernias palpable on exam. No focal neuro deficits. CVA tenderness on right Plan abdomen and pelvis non contrast. Basic labs. CT NG urine, mag. US scrotum Will rule out appendicitis, kidney stones, torsion, hernias, NG & CT. Will speak to patient about prophylactically treating him for gonorrhea/chlamydia. Will use split decision making to make this decision with patient. Lab Data Result diagrams: 08/02/21 18:27 08/02/21 18:27 Labs: Lab Results 08/02/21 08/02/21 08/02/21 Range/Units 17:41 18:27 18:27 WBC 8.0 (4.8-10.8) X10*3/uL RBC 3.82 L (4.60-5.80) X10*6/uL Hgb 11.6 L (14.0-18.0) g/dl Hct 32.6 L (42.0-52.0) % MCV 85.3 (80.0-98.0) fL MCH 30.4 (27.0-33.0) pg MCHC 35.6 (31.0-36.0) g/dl RDW 12.6 (11.0-16.0) % Plt Count 183 (160-400) X10*3/uL MPV 8.5 L (9.4-12.4) fL Immature Gran % (Auto) 0.2 (0.0-0.4) % Neut % (Auto) 52.1 (45-73) % Lymph % (Auto) 31.9 (20-40) % [place] % (Auto) 9.1 (2-11) % Eos % (Auto) 6.1 H (0-4) % Baso % (Auto) 0.6 (0-2) % Lymph # (Auto) 2.6 (1.2-4.9) X10*3/uL [place] # (Auto) 0.7 (0.1-1.2) X10*3/uL Eos # (Auto) 0.5 H (0.0-0.4) X10*3/uL Baso # (Auto) 0.1 (0.0-0.2) X10*3/uL Abs Immat Gran (auto) 0.02 (0.00-0.03) X10*3/uL Absolute Neuts (auto) 4.2 (2.0-8.3) x10*3/uL Absolute Nucleated RBC 0.000 (0.0-0.012) X10*3/uL Nucleated RBC % (auto) 0.0 (0.0-0.2) /100WBC Sodium 141 (135-145) mmol/L Potassium 3.5 D (3.3-5.1) mmol/L Chloride 107 (96-108) mmol/L Carbon Dioxide 27 (22-29) mmol/L Anion Gap 11 L (12-20) BUN 16 (9-16) mg/dL Creatinine 1.15 (0.5-1.4) mg/dL Estim Creat Clear Calc 118.6 Estimated GFR > 60 Random Glucose 87 (60-115) mg/dL Calcium 9.6 D (8.4-10.2) mg/dL Magnesium 1.8 (1.6-2.6) mg/dL Total Bilirubin 0.4 (0.0-1.0) mg/dL AST 31 D (5-37) U/L ALT 45 H (0-40) U/L Alkaline Phosphatase 48 (39-117) U/L Total Protein 6.5 (6.5-8.0) g/dL Albumin 4.2 (3.5-5.0) g/dL Urine Color YELLOW Urine Appearance CLEAR Urine pH 6.0 (5.0-8.0) Ur Specific [place] 1.025 (1.005-1.025) Urine Protein NEG (NEG-TRACE) MG/DL Urine Glucose (UA) 100 H (NEG) MG/DL Urine Ketones NEG (NEG) MG/DL Urine Blood NEG (NEG) Urine Nitrite NEG (NEG) Ur Leukocyte Esterase NEG (NEG) Critical Care Time Critical Care Time Critical Care Time: No Discharge Plan Discharge Clinical Impression: Epididymitis, Abdominal pain Patient Disposition: Home, Self-Care Instructions: Epididymitis (ED) Additional Instructions: Take your medications as prescribed. If you were prescribed antibiotics today, it is important that you take your medication to their entirety, do not skip any doses, do not finish them early. Drink plenty of fluids Zofran is an anti-nausea medicine I have sent to your pharmacy take it as needed for nausea/vomiting Follow-up with your primary care provider this week. Return to the emergency department with new or worsening symptoms. In case of emergency call 911 Some labs are still pending- you will be called only if resutls are positive Prescriptions: New doxycycline hyclate 100 mg capsule 100 mg PO BID 10 Days Qty: 20 RF: 0 ondansetron 4 mg tablet,disintegrating 4 mg PO ONCE PRN (Reason: nausea and vomiting) Qty: 10 RF: 0 No Action omeprazole 40 mg capsule,delayed release(DR/EC) 40 mg PO DAILY Qty: 14 RF: 0 cyclobenzaprine 10 mg tablet 10 mg PO TID PRN (Reason: muscle spasm) Qty: 14 RF: 0 ondansetron 4 mg tablet,disintegrating 4 mg PO Q8H PRN (Reason: nausea and vomiting) Qty: 20 RF: 0 cyclobenzaprine 5 mg tablet 5 mg PO BID PRNRF: 0 bupropion HCl 300 mg tablet extended release 24 hr 300 mg PO DAILY RF: 0 nicotine (polacrilex) 4 mg gum 4 mg PO Q2H RF: 0 fluconazole 100 mg tablet 100 mg PO .COMPLEX 10 Days Qty: 11 RF: 0 azithromycin 250 mg tablet See Rx Instructions PO .COMPLEX Qty: 6 RF: 0 diclofenac sodium 50 mg tablet,delayed release (DR/EC) 50 mg PO BID 7 Days Qty: 14 RF: 0 Referrals: Stella Harrison MD [Primary Care Provider] - 2 days Stand Alone Forms: Work/School Release
[2021-08-02 18:32] LABS: MANUAL DIFF FLAG NO
[2021-08-02 18:33] LABS: Basophils Absolute Auto 0.1 X10*3/uL (0.0-0.2); Basophils Percent Auto 0.6 % (0-2); Eosinophils Absolute Auto 0.5 X10*3/uL (0.0-0.4); Eosinophils Percent Auto 6.1 % (0-4); Hematocrit 32.6 % (42.0-52.0); Hemoglobin 11.6 g/dl (14.0-18.0); Imm Gran Abs Auto 0.02 X10*3/uL (0.00-0.03); Imm Gran Pct Auto 0.2 % (0.0-0.4); Lymphocytes Absolute Auto 2.6 X10*3/uL (1.2-4.9); Lymphocytes Percent Auto 31.9 % (20-40); Mean Corpuscular HGB Conc 35.6 g/dl (31.0-36.0); Mean Corpuscular Hemoglobin 30.4 pg (27.0-33.0); Mean Corpuscular Volume 85.3 fL (80.0-98.0); Mean Platelet Volume 8.5 fL (9.4-12.4); Monocytes Absolute Auto 0.7 X10*3/uL (0.1-1.2); Monocytes Percent Auto 9.1 % (2-11); Neutrophils Absolute Auto 4.2 x10*3/uL (2.0-8.3); Neutrophils Percent Auto 52.1 % (45-73); Platelet Count 183 X10*3/uL (160-400); Red Blood Count 3.82 X10*6/uL (4.60-5.80); Red Cell Distribution Width 12.6 % (11.0-16.0)
[2021-08-02 18:53] LABS: Alanine Aminotransferase 45 U/L (0-40); Albumin Level 4.2 g/dL (3.5-5.0); Alkaline Phosphatase 48 U/L (39-117); Anion Gap 11 (12-20); Aspartate Amino Transferase 31 U/L (5-37); Bilirubin Total 0.4 mg/dL (0.0-1.0); Blood Urea Nitrogen 16 mg/dL (9-16); Calcium 9.6 mg/dL (8.4-10.2); Carbon Dioxide 27 mmol/L (22-29); Chloride 107 mmol/L (96-108); Creatinine Clr Calc Pharmacy 118.6; Estimated Glomerular Filt Rate > 60; Glucose Random 87 mg/dL (60-115); Magnesium 1.8 mg/dL (1.6-2.6); Potassium 3.5 mmol/L (3.3-5.1); Sodium 141 mmol/L (135-145); Total Protein 6.5 g/dL (6.5-8.0)
[2021-08-02] MEDS: cefTRIAXone sodium 500 MG, Lidocaine HCl 1 % MPF 1 ML IM (19:40)
[2021-08-03 03:03] LABS: CT PCR NOT DETECTED (Not Detect.); NG PCR NOT DETECTED (Not Detect.)
== END 2021-08-02 20:20 | disposition home or self-care (01) ==
PROVIDERS: Physician Assistant; Emergency Provider Internal Medicine; PCP Family Medicine
DX: N45.1 Epididymitis (principal); R10.31 Right lower quadrant pain; I10 Essential (primary) hypertension; Z87.442 Personal history of urinary calculi
CPT/HCPCS: 36415; 74176; 76870; 80053; 81003; 83735; 85025; 87491; 87591; 93975; 96372; 99284; J0696

== ENCOUNTER → 2021-09-05 08:50 | Outpatient (BNVA) | payer OTHER, SELFPAY | PROVIDERS: PCP Family Medicine; Referring Provider Family Medicine; Visit Provider Surgery ==

== ENCOUNTER 2021-11-07 08:33 | Outpatient (REF) | payer OTHER, SELFPAY ==
--- NOTE | ~2021-11-07 | FL_ITS ---
PROCEDURE: XR FLUOROSCOPY UPPER GI WITH AIR CLINICAL INFORMATION: Left upper quadrant pain. COMPARISON: None TECHNIQUE: Air-contrast upper GI examination with oral contrast, effervescent crystals, and half-inch diameter barium tablet. FINDINGS: There is normal apposition of the vocal cords while saying E . There is normal elevation of the soft palate while saying candy . Patient swallowed half-inch diameter barium tablet without difficulty. No nasopharyngeal reflux or tracheal aspiration was identified. No Zenker's diverticulum or significant cricopharyngeal hypertrophy is seen. There is normal esophageal motility present. During the examination there was spontaneous gastroesophageal reflux to the level of the thoracic inlet which cleared slowly. There is a small hiatal hernia present as well as a Schatzki's ring through which the half-inch diameter tablet passed easily. There is question of some mucosal irregularity for a few centimeters above the Schatzki's ring. No persistent stricture is evident. The stomach demonstrates normal distensibility without persistent stricture, mass, or ulceration. No mucosal abnormalities appreciated. There was no delay in gastric emptying. The duodenal bulb and sweep appeared unremarkable. FLUOROSCOPY TIME: 2.3 minutes. DOSE AREA PRODUCT: 22.331 Gy-cm2 (hill-centimeter squared). FL/FL upper GI w air IMPRESSION: 1. Small hiatal hernia with Schatzki's ring. 2. Spontaneous gastroesophageal reflux to the level of the thoracic inlet which clears slowly. Question some mild mucosal irregularity within the distal esophagus just proximal to the Schatzki's ring.
== END 2021-11-07 08:34 | disposition home or self-care (01) ==
LOC: HO.XRAY 08:33
PROVIDERS: Visit Provider Internal Medicine Gastroenterology
DX: R10.12 Left upper quadrant pain (principal)
CPT/HCPCS: 74246

== ENCOUNTER 2021-12-28 17:19 | Inpatient (IN) | payer OTHER, SELFPAY ==
--- NOTE | ~2021-12-28 | US_ITS ---
EXAMINATION: US RETROPERITONEAL LIMITED (RENAL ONLY) and renal Doppler exam CLINICAL INFORMATION: Hypertension. COMPARISON: Previous CT scan of the abdomen and pelvis 12/28/2021 TECHNIQUE: Grayscale and color and Doppler imaging of the kidneys and renal arteries FINDINGS: RIGHT KIDNEY: 12.2 x 6.8 x 6.5 cm (SAG x AP x TRV). The kidney is normal in size, contour, and echogenicity. Renal cortical thickness is normal. No calculi or focal parenchymal lesions. No hydronephrosis. LEFT KIDNEY: 11.7 x 6.1 x 5.3 cm (SAG x AP x TRV). The kidney is normal in size, contour, and echogenicity. Renal cortical thickness is normal. There is a 6 x 3 x 3 mm cyst in the midpole. No calculi. No hydronephrosis. The visualized abdominal aorta is normal in caliber. Aortic peak systolic velocity is increased measuring 112 25 cm/s and cannot be used to calculate renal artery to aorta ratio. The right renal artery is patent. Right renal artery peak systolic velocities are normal measuring 61, 105 and 111 cm/s proximally, in the midportion and distally. Right segmental renal artery resistive indices are normal measuring between 0.7 and 0.8. The right renal vein is patent. The left renal artery is patent. No visible stenosis is appreciated. There are slightly elevated peak systolic velocity in the left mid renal artery. Left renal artery peak systolic velocities measure 159, 190 and 69 cm/s proximally, in the midportion and distally. Left renal artery segmental resistive indices are normal measuring 0.6 cm. The left renal vein is patent. US/US renal doppler IMPRESSION: Normal size kidneys. Small left renal cyst. Normal right renal artery. Slightly elevated peak systolic velocity in the left mid renal artery. No visible stenosis is appreciated. Appearance is questionable for less than 60% left renal artery stenosis.
--- NOTE | ~2021-12-28 | CT_ITS ---
EXAMINATION: CT ABDOMEN AND PELVIS WITHOUT CONTRAST CLINICAL INFORMATION: Right lower quadrant abdominal pain. Question of appendicitis. COMPARISON: None TECHNIQUE: Multidetector volumetric imaging was performed from the superior aspect of the liver through the pubic symphysis. Sagittal and coronal reformatted images were obtained on the technologist's workstation. This CT examination was performed using dose optimization techniques as appropriate, variously including the following: *Automated exposure control *Adjustment of mA and/or kV according to patient size (this includes techniques or standardized protocols for targeted exams where dose is matched to indication/reason for exam; i.e. extremities or head) *Use of iterative reconstruction technique DLP: 849 mGy-cm FINDINGS: LUNG BASES: The visualized lung bases are unremarkable. LIVER, GALLBLADDER, AND BILIARY TREE: The liver is normal in size, shape, and attenuation. No focal hepatic lesion or biliary ductal dilatation is present. Gallbladder physiologically contracted. PANCREAS: Unremarkable. SPLEEN: Unremarkable. ADRENAL GLANDS: Unremarkable. KIDNEYS AND URETERS: The kidneys are normal in size, shape, and attenuation. No hydronephrosis, hydroureter, or calculi seen. No perinephric stranding. BLADDER: Unremarkable. GASTROINTESTINAL TRACT: Left colonic diverticulosis. There is focal fat stranding centered about an inflamed diverticulum within the distal descending colon along the mesenteric aspect compatible with diverticulitis. No fluid collection to suggest abscess formation. No extraluminal gas. Normal appendix contains retained barium. ABDOMINAL WALL: No significant hernia is appreciated. LYMPH NODES: Normal. VASCULAR: Unremarkable. PELVIC VISCERA: Unremarkable. OSSEOUS STRUCTURES: Unremarkable. CT/CT abdomen pelvis wo con IMPRESSION: Acute uncomplicated distal descending colonic diverticulitis. No evidence of appendicitis.
--- NOTE | ~2021-12-28 | CT_ITS ---
EXAMINATION: CT HEAD WITHOUT CONTRAST CLINICAL INFORMATION: Hypertensive urgency. COMPARISON: MRI brain 06/28/2021. TECHNIQUE: Contiguous axial imaging was performed from the skull base to vertex without intravenous administration of contrast. This CT examination was performed using dose optimization techniques as appropriate, variously including the following: *Automated exposure control *Adjustment of mA and/or kV according to patient size (this includes techniques or standardized protocols for targeted exams where dose is matched to indication/reason for exam; i.e. extremities or head) *Use of iterative reconstruction technique DLP: 783 mGy-cm FINDINGS: The ventricles and sulci are normal in size and configuration. No focal parenchymal lesions of the brain or abnormal extra-axial fluid collections identified. No intrarenal hemorrhage, tumors or acute infarcts noted. The orbits and globes are normal in appearance. No significant opacification of the visualized paranasal sinuses, mastoid air cells and middle ear cavities. CT/CT head/brain wo con IMPRESSION: *No acute intercranial abnormalities.
--- NOTE | ~2021-12-28 | XR_ITS ---
EXAMINATION: XR ABDOMEN KUB CLINICAL INDICATION: Worsening pain COMPARISON: 12/28/2021 TECHNIQUE: AP view of the abdomen. FINDINGS: Nonobstructive bowel gas pattern. No dilated loops of bowel. Radiopaque material in the right pelvis is unchanged. No suspicious calcifications. The lung bases are clear. No acute osseous abnormality. XR/XR KUB IMPRESSION: Unremarkable appearance of the abdomen.
[2021-12-28 17:32] VITALS: BP 166/107; PULSE 100; RESP 20; TEMP 36.4; O2SAT 98; BMI 33.9
[2021-12-28 18:10] LABS: MANUAL DIFF FLAG NO
[2021-12-28 18:13] LABS: Basophils Absolute Auto 0.1 X10*3/uL (0.0-0.2); Basophils Percent Auto 0.6 % (0-2); Eosinophils Absolute Auto 0.7 X10*3/uL (0.0-0.4); Eosinophils Percent Auto 6.1 % (0-4); Hematocrit 27.8 % (42.0-52.0); Imm Gran Abs Auto 0.03 X10*3/uL (0.00-0.03); Imm Gran Pct Auto 0.3 % (0.0-0.4); Lymphocytes Absolute Auto 2.6 X10*3/uL (1.2-4.9); Lymphocytes Percent Auto 21.5 % (20-40); Mean Corpuscular Hemoglobin 29.9 pg (27.0-33.0); Mean Corpuscular Volume 83.2 fL (80.0-98.0); Mean Platelet Volume 8.8 fL (9.4-12.4); Monocytes Percent Auto 8.2 % (2-11); Neutrophils Absolute Auto 7.6 x10*3/uL (2.0-8.3); Neutrophils Percent Auto 63.3 % (45-73); Platelet Count 238 X10*3/uL (160-400); Red Blood Count 3.34 X10*6/uL (4.60-5.80); Red Cell Distribution Width 11.9 % (11.0-16.0)
[2021-12-28 18:33] LABS: Anion Gap 11 (12-20); Blood Urea Nitrogen 40 mg/dL (9-16); Calcium 12.9 mg/dL (8.4-10.2); Carbon Dioxide 30 mmol/L (22-29); Chloride 100 mmol/L (96-108); Creatinine Clr Calc Pharmacy 39.9; Estimated Glomerular Filt Rate 21; Glucose Random 106 mg/dL (60-115); Potassium 3.1 mmol/L (3.3-5.1); Sodium 138 mmol/L (135-145)
[2021-12-28 19:31] LABS: Alanine Aminotransferase 61 U/L (0-40); Alkaline Phosphatase 56 U/L (39-117); Aspartate Amino Transferase 75 U/L (5-37); Bilirubin Direct < 0.2 mg/dL (0.0-0.5); Bilirubin Total 0.2 mg/dL (0.0-1.0); Lipase 24 U/L (8-78); Total Protein 6.5 g/dL (6.5-8.0)
[2021-12-28 20:00] VITALS: BP 169/116; PULSE 90; RESP 16; TEMP 36.8; O2SAT 98
--- NOTE | 2021-12-28 20:12 | ED_ITS ---
HPI - Abdominal Pain General Chief Complaint: Abdominal Pain Stated Complaint: Abdominal pain Time Seen by Provider: 12/28/21 20:05 Source: patient Mode of arrival: ambulatory Limitations: no limitations History of Present Illness HPI narrative: 31-year-old male with a past medical history of kidney stones presenting to the ED with complaints of right upper quadrant/right flank/right lower quadrant/right back pain over the past 3 weeks with associated nausea/vomiting with urinary frequency/urgency and urinating smaller amounts. Reports that he went to the urgent care and they reported that he had some bacteria in his urine therefore they sent him here to rule out possible appendicitis. He recently was seen by his stockroom coordinator and was placed on a proton pump inhibitor per patient reports he is taking as prescribed and no symptomatic relief. Reports for the past 3 weeks he was unable to keep down any foods or liquids up until the past few days where he has been able to keep down foods and liquids. He denies any measured fevers, dizziness, headaches, neck pain/stiffness, trouble swallowing or breathing, chest pain or shortness of breath, dyspnea on exertion, orthopnea, palpitations, radiation of the abdominal pain, hematuria, constipation, black or bloody stools, abnormal penile discharge, recent travel or sick contacts or any other symptoms complaints or concerns at this time. MD elicited complaint: abdominal pain and flank pain Onset (ago): week(s) (3) Pain Consistency: constant Location: RUQ, RLQ and R flank Severity: moderate Quality: other ( solid sensation ) Radiation: none Migration to: no migration Exacerbating factors: nothing Relieving factors: nothing Associated symptoms: nausea and vomiting Related Data Home Medications Medication Instructions Recorded Confirmed acetaminophen 500 mg tablet 500 mg PO Q6H PRN 12/28/21 12/28/21 calcium carbonate 200 mg calcium 200 mg PO QID PRN 12/28/21 12/28/21 (500 mg) chewable tablet (Tums) diphenhydramine HCl 25 mg capsule 25 mg PO TID PRN 12/28/21 12/28/21 (Benadryl) ibuprofen 600 mg tablet 600 mg PO Q6H PRN 12/28/21 12/28/21 nitrofurantoin 1 cap PO BID 12/28/21 12/28/21 monohydrate/macrocrystals 100 mg capsule nystatin 100,000 unit/mL oral 5 ml PO QID 12/28/21 12/28/21 suspension pantoprazole 40 mg tablet,delayed 1 tab PO DAILY 12/28/21 12/28/21 release Allergies Allergy/AdvReac Type Severity Reaction Status Date / Time cat dander Allergy Severe Facial Verified 09/05/21 08:54 Swelling mold Allergy Intermediate Shortness Verified 09/05/21 08:54 of Breath Review of Systems Review of Systems Constitutional : No Weight loss, No Fever, No Chills, No Night Sweats, No Fatigue, No Malaise ENT/Mouth : No Hearing loss, No Ear Pain, No Nasal Congestion, No Sinus Pain, No Hoarseness, No sore throat, No Rhinorrhea, No Swallowing Difficulty Eyes: No Eye Pain, No Swelling, No Redness, No Foreign Body, No Discharge, No Vision Changes Cardiovascular : No Chest Pain, No SOB, No Dyspnea on Exertion, No Orthopnea, No Edema, No Palpitations Respiratory : No Cough, No Sputum, No Wheezing, No Smoke Exposure, No Dyspnea Gastrointestinal : + nausea/vomiting/abdominal pain/flank pain, No Diarrhea, No Constipation, No Hematochezia, No Melena Genitourinary : + dysuria/urinary frequency/urgency with decreased urine output, no irregular bleeding, No Hematuria, No Urinary Incontinence Musculoskeletal : No joint pain, No Myalgias, No Joint Swelling Skin : No Skin Lesions, No rash Neuro : No Weakness, No Numbness, No Paresthesias, No Loss of Consciousness, No Dizziness, No Headache Psych : No Anxiety/Panic, No Depression, No SI/HI/AH/VH, No Social Issues, Heme/Lymph: No Bruising, No Bleeding,No Lymphadenopathy Endocrine : No Polyuria, No Polydipsia, No Temperature Intolerance Yes all other systems are reviewed and are negative [facility] Past Medical History Attestation statement: The following information was validated with the patient. Medical History H/O gynecomastia Nephrolithiasis No known health problems Seasonal allergies Surgical History S/P excision of lipoma Family History Family History Maternal Grandfather Liver cancer Paternal Grandmother Cancer of unknown origin Social History Social History Alcohol intake: never Patient Tobacco Use Status: Never used Tobacco Advance Directives: No Advance Directives Information Provided: No Physical Exam ED Vital Signs: Vital Signs - 24 hr 12/28/21 17:32 12/28/21 20:00 12/28/21 22:08 Temperature 97.6 F 98.3 F Pulse Rate 100 90 85 Respiratory Rate 20 16 18 Blood Pressure 166/107 H 169/116 H 168/102 H Pulse Oximetry 98 98 99 BMI result Body Mass Index 33.9 Vital signs reviewed and blood pressure 166/107. Pulse 100. Respirations 20. Temperature 97.6 degrees orally. Oxygen 98% on room air. Appearance: Alert. Oriented X3. No acute distress. Head: Normal external exam. Normocephalic. Eyes: PERRLA. EOMI. Conjunctiva and sclera normal. Eyelids normal. ENT: Pharynx normal. Uvula midline. Moist mucous membranes. No trismus noted. No drooling noted. No muffled voice noted. Neck: Normal inspection. Neck supple. FROM. No adenopathy. No meningeal signs. CVS: Normal heart rate and rhythm. Heart sound normal. No murmurs noted. Pulses normal throughout. Respiratory: No respiratory distress. Painless inspiration. Breath sounds normal. No wheezes/rales/rhonchi noted. Chest nontender. No accessory muscle usage noted or decreased air movement noted. Abdomen: Soft and mild tenderness palpation to the right upper quadrant/right lower quadrant/right flank area. No guarding is noted. Nondistended. No rigidity. Bowel sounds normal in all 4 quadrants. No distention noted. No organomegaly noted. No visible injury noted. No rebound tenderness. Negative Rovsing sign. Negative obturator's sign. Negative psoas sign. Negative Justin sign. Back: No CVA tenderness. Full range of motion noted. Skin: Skin warm and dry. Normal skin color. Normal skin turgor. No rashes/lesions/lacerations noted. Extremities: No lower extremity edema or calf tenderness noted. Extremities exhibit normal range of motion. Extremities nontender. Neuro: Oriented X 3. No motor deficit. No sensory deficit. Reflexes normal. Normal steady gait. CN's II-XII intact bilaterally? Course Course Course Narrative: 20:06 - 31-year-old male with a past medical history of kidney stones presenting to the ED with complaints of right upper quadrant/right flank/right lower quadrant/right back pain over the past 3 weeks with associated nausea/vomiting with urinary frequency/urgency and urinating smaller amounts. Reports that he went to the urgent care and they reported that he had some bacteria in his urine therefore they sent him here to rule out possible appendicitis. He recently was seen by his stockroom coordinator and was placed on a proton pump inhibitor per patient reports he is taking as prescribed and no symptomatic relief. Reports for the past 3 weeks he was unable to keep down any foods or liquids up until the past few days where he has been able to keep down foods and liquids. Labs were obtained while the patient was in the waiting room and reviewed and patient with an elevated white blood cell count at 12,000. H&H 10.0/27.8. Potassium 3.1. Carbon dioxide 30. Anion gap 11. BUN 40. Creatinine 3.45. Calcium 12.9. AST 75. ALT 61. Otherwise all other labs are within normal limits. - this is new ROSCOE. Most likely related to dehydration. - although at this time will obtain a CT scan abdomen pelvis with IV contrast. Provide 3 L of IV fluids. Provide 10 mEq of IV potassium. Obtain a UA. Then re-evaluate plan is to admit. Reevaluation(s) Reevaluation #1: - CT scan abdomen pelvis without IV contrast due to patient's renal function revealed acute uncomplicated distal ascending colonic diverticulitis no evidence of appendicitis. - therefore at this time will plan to admit for ROSCOE/rhabdomyolysis/hypo kalemia/dehydration with diverticulitis. Will start on Rocephin. Discussed this case with Dr. Ramos who will admit at this time. Patient understands agrees with this plan. Time: 22:07 [facility] - Abdominal Pain Medical Records Attestation: I reviewed the patient's medical records. Lab Data Attestation: I reviewed the patient's lab results. Result diagrams: 12/28/21 18:06 12/28/21 18:06 Labs: Lab Results 12/28/21 12/28/21 12/28/21 Range/Units 18:06 18:06 20:34 WBC 12.0 H (4.8-10.8) X10*3/uL RBC 3.34 L (4.60-5.80) X10*6/uL Hgb 10.0 L (14.0-18.0) g/dl Hct 27.8 L (42.0-52.0) % MCV 83.2 (80.0-98.0) fL MCH 29.9 (27.0-33.0) pg MCHC 36.0 (31.0-36.0) g/dl RDW 11.9 (11.0-16.0) % Plt Count 238 D (160-400) X10*3/uL MPV 8.8 L (9.4-12.4) fL Immature Gran % (Auto) 0.3 (0.0-0.4) % Neut % (Auto) 63.3 (45-73) % Lymph % (Auto) 21.5 (20-40) % Freeborn % (Auto) 8.2 (2-11) % Eos % (Auto) 6.1 H (0-4) % Baso % (Auto) 0.6 (0-2) % Lymph # (Auto) 2.6 (1.2-4.9) X10*3/uL Free[place] # (Auto) 1.0 (0.1-1.2) X10*3/uL Eos # (Auto) 0.7 H (0.0-0.4) X10*3/uL Baso # (Auto) 0.1 (0.0-0.2) X10*3/uL Abs Immat Gran (auto) 0.03 (0.00-0.03) X10*3/uL Absolute Neuts (auto) 7.6 (2.0-8.3) x10*3/uL Absolute Nucleated RBC 0.000 (0.0-0.012) X10*3/uL Nucleated RBC % (auto) 0.0 (0.0-0.2) /100WBC Sodium 138 (135-145) mmol/L Potassium 3.1 L (3.3-5.1) mmol/L Chloride 100 (96-108) mmol/L Carbon Dioxide 30 H (22-29) mmol/L Anion Gap 11 L (12-20) BUN 40 H (9-16) mg/dL Creatinine 3.45 H (0.5-1.4) mg/dL Estim Creat Clear Calc 39.9 Estimated GFR 21 Random Glucose 106 (60-115) mg/dL Lactic Acid (0.5-2.0) mmol/L Calcium 12.9 H* D (8.4-10.2) mg/dL Total Bilirubin 0.2 (0.0-1.0) mg/dL Direct Bilirubin < 0.2 (0.0-0.5) mg/dL AST 75 H (5-37) U/L ALT 61 H (0-40) U/L Alkaline Phosphatase 56 (39-117) U/L Total Creatine Kinase (38-174) U/L Total Protein 6.5 (6.5-8.0) g/dL Albumin 4.0 (3.5-5.0) g/dL Lipase 24 (8-78) U/L COVID-19 (ARSALAN) Negative (Negative) COVID-19 Clin Com See Note 12/28/21 12/28/21 Range/Units 20:34 20:34 WBC (4.8-10.8) X10*3/uL RBC (4.60-5.80) X10*6/uL Hgb (14.0-18.0) g/dl Hct (42.0-52.0) % MCV (80.0-98.0) fL MCH (27.0-33.0) pg MCHC (31.0-36.0) g/dl RDW (11.0-16.0) % Plt Count (160-400) X10*3/uL MPV (9.4-12.4) fL Immature Gran % (Auto) (0.0-0.4) % Neut % (Auto) (45-73) % Lymph % (Auto) (20-40) % Freeborn % (Auto) (2-11) % Eos % (Auto) (0-4) % Baso % (Auto) (0-2) % Lymph # (Auto) (1.2-4.9) X10*3/uL Freeborn # (Auto) (0.1-1.2) X10*3/uL Eos # (Auto) (0.0-0.4) X10*3/uL Baso # (Auto) (0.0-0.2) X10*3/uL Abs Immat Gran (auto) (0.00-0.03) X10*3/uL Absolute Neuts (auto) (2.0-8.3) x10*3/uL Absolute Nucleated RBC (0.0-0.012) X10*3/uL Nucleated RBC % (auto) (0.0-0.2) /100WBC Sodium (135-145) mmol/L Potassium (3.3-5.1) mmol/L Chloride (96-108) mmol/L Carbon Dioxide (22-29) mmol/L Anion Gap (12-20) BUN (9-16) mg/dL Creatinine (0.5-1.4) mg/dL Estim Creat Clear Calc Estimated GFR Random Glucose (60-115) mg/dL Lactic Acid 0.7 (0.5-2.0) mmol/L Calcium (8.4-10.2) mg/dL Total Bilirubin (0.0-1.0) mg/dL Direct Bilirubin (0.0-0.5) mg/dL AST (5-37) U/L ALT (0-40) U/L Alkaline Phosphatase (39-117) U/L Total Creatine Kinase 2094 H (38-174) U/L Total Protein (6.5-8.0) g/dL Albumin (3.5-5.0) g/dL Lipase (8-78) U/L COVID-19 (ARSALAN) (Negative) COVID-19 Clin Com Imaging Data CT scan abdomen pelvis without IV contrast: Attestation: I personally reviewed and interpreted this imaging study as follows: Radiologist's impression: FINDINGS: LUNG BASES: The visualized lung bases are unremarkable.? LIVER, GALLBLADDER, AND BILIARY TREE: The liver is normal in size, shape, and attenuation. No focal hepatic lesion or biliary ductal dilatation is present. Gallbladder physiologically contracted.? PANCREAS: Unremarkable.? SPLEEN: Unremarkable.? ADRENAL GLANDS: Unremarkable.? KIDNEYS AND URETERS: The kidneys are normal in size, shape, and attenuation. No hydronephrosis, hydroureter, or calculi seen. No perinephric stranding. ? BLADDER: Unremarkable.? GASTROINTESTINAL TRACT: Left colonic diverticulosis. There is focal fat stranding centered about an inflamed diverticulum within the distal descending colon along the mesenteric aspect compatible with diverticulitis. No fluid collection to suggest abscess formation. No extraluminal gas. Normal appendix contains retained barium. ABDOMINAL WALL: No significant hernia is appreciated.? LYMPH NODES: Normal. VASCULAR: Unremarkable. PELVIC VISCERA: Unremarkable.? OSSEOUS STRUCTURES: Unremarkable.? CT/CT abdomen pelvis wo con IMPRESSION: Acute uncomplicated distal descending colonic diverticulitis. No evidence of appendicitis. Critical Care Time Critical Care Time Critical Care Time: Yes Total Critical Care Time: 60 Attestation: I personally attest to this time spent taking care of the patient Discharge Plan Discharge Clinical Impression: ROSCOE (acute kidney injury), Acute hypokalemia, Hypercalcemia, Anemia, High blood pressure, Rhabdomyolysis, Diverticulitis
--- NOTE | 2021-12-28 20:14 | ECG_ITS ---
Test Reason : ROSCOE LOW POTASSIUM Blood Pressure : / mmHG Vent. Rate : 092 BPM Atrial Rate : 092 BPM P-R Int : 174 ms QRS Dur : 096 ms QT Int : 350 ms P-R-T Axes : 051 013 021 degrees QTc Int : 432 ms Normal sinus rhythm Minimal voltage criteria for LVH, may be normal variant ( R in aVL ) Borderline ECG When compared with ECG of 02-MAY-2021 10:36, T wave inversion now evident in Anterior leads Referred By: Corrie Vanessa Electronically Signed By:MAHAMED HINSON MD
[2021-12-28] MEDS: 0.9 % Sodium Chloride 1,000 ML 999 ML IVCONT ×3 (20:51→23:53)
[2021-12-28] MEDS: Potassium Chloride/H20 10 MEQ/100 ML PIGGYBACK 100 MEQ IV ×2 (20:51→22:19)
[2021-12-28 20:53] LABS: Lactic Acid 0.7 mmol/L (0.5-2.0)
[2021-12-28 20:59] LABS: COVID-19 Test Negative (Negative); IDNOW Serial# 55D5AD1C
[2021-12-28] MEDS: Morphine Sulfate 4 MG/ML CARTRIDGE IVPUSH ×2 (21:19→23:52)
[2021-12-28] MEDS: ondansetron HCL 4 MG/2 ML VIAL IVPUSH (21:20)
--- NOTE | 2021-12-28 21:56 | PHA.MEDREC ---
Pharmacy Consult ? Medication Reconciliation Pharmacy has completed the medication reconciliation.
[2021-12-28 22:08] VITALS: BP 168/102; PULSE 85; RESP 18; O2SAT 99
[2021-12-28 22:34] LABS: Appearance Urine CLEAR; Color Urine YELLOW; Glucose Urine UA NEG (NEG); Leukocyte Esterase Urine TRACE (NEG); Nitrite Urine NEG (NEG); Specific Gravity - Urine <= 1.005 (1.005-1.025); UACC Culture Trigger NO; Urine Blood 1+ (NEG); Urine Ketones NEG (NEG); Urine Protein NEG (NEG-TRACE)
[2021-12-28 23:08] LABS: Bacteria Urine TRACE /LPF; RBC Urine 0-2 /HPF (0); Squamous Epithelial Cell Urine TRACE /LPF; WBC Urine 0-2 /HPF (0-4)
[2021-12-28 23:52] VITALS: RESP 16
[2021-12-28] MEDS: cefTRIAXone sodium 2 GM in 0.9 % Sodium Chloride 50 ML IV (23:52)
[2021-12-29] VITALS (11 sets, daily range): BP systolic 140–172; BP diastolic 86–107; PULSE 75–103; RESP 12–20; TEMP 36.5–37.6; O2SAT 93–100
--- NOTE | 2021-12-29 00:07 | PM.IMHP ---
History of Present Illness Date of Service: 12/29/21 Chief Complaint: abd pain 31-year-old male with past medical history of nephrolithiasis, history of gynecomastia status post surgical excision, presents to the hospital with complaints of right lower abdominal pain. Patient reports that he has had history of diverticulitis, but has been struggling with this abdominal pain for the past 6 months that worsened over the last 10 days. The pain is localized to the right lower abdomen, 9/10, constant, radiating across the abdomen to the left. No alleviating or exacerbating factors. 4 days of nausea and vomiting. He reports that every time he tries to eat anything he throws up right away. He has been feeling significantly dehydrated, and reports inability to keep any p.o. down. He denies any fever no chills, no diarrhea constipation, no chest pain, no shortness of breath, reports urinary frequency for the past 3 days, no lower extremity edema. No weakness numbness or tingling. On arrival to the ED patient hemodynamically stable with a slightly elevated blood pressure otherwise stable Labs are noted to be significant for WBC count of 12.0, hemoglobin of 10.0, hematocrit 27.8, creatinine of 3.45 with a baseline of around 1.1, BUN of 40, calcium level of 12.9, AST of 75, ALT of 61, CPK of 2094, UA positive for leukocyte Estrace as well as trace WBC CT abdomen shows acute uncomplicated distal descending colonic diverticulitis. Patient started on IV antibiotics, IV fluids and will be admitted for further management Review of Systems Review of Systems: Yes all other systems are reviewed and are negative [facility] Medical History H/O gynecomastia Nephrolithiasis No known health problems Seasonal allergies Family History Maternal Grandfather Liver cancer Paternal Grandmother Cancer of unknown origin Surgical History S/P excision of lipoma Social History Alcohol intake: never Patient Tobacco Use Status: Never used Tobacco Advance Directives: No Advance Directives Information Provided: No Meds Allergies Allergy/AdvReac Type Severity Reaction Status Date / Time cat dander Allergy Severe Facial Verified 09/05/21 08:54 Swelling mold Allergy Intermediate Shortness Verified 09/05/21 08:54 of Breath Active Medications: Current Medications Acetaminophen (Acetaminophen 325 Mg Tablet) 650 mg PO Q6H PRN PRN Reason: Pain, Mild (Pain Scale 1-3) Docusate Sodium (Docusate Sodium 100 Mg Capsule) 100 mg PO DAILY PRN PRN Reason: Constipation Enoxaparin Sodium (Enoxaparin Sodium 40 Mg/0.4 Ml Syringe) 40 mg SUBCUT Q24H [facility] Lactated Ringer's (Lr) 1,000 mls @ 125 mls/hr IVCONT .Q8H [facility] Ceftriaxone Sodium 1 gm/ (Sodium Chloride) 50 mls @ 100 mls/hr IV Q24H [facility] Metronidazole (Metronidazole 500 Mg Tablet) 500 mg PO Q8H [facility] Morphine Sulfate (Morphine Sulfate 4 Mg/Ml Cartridge) 4 mg IVPUSH Q4H PRN; Protocol PRN Reason: Pain, Severe (Pain Scale 7-10) Ondansetron HCl (Ondansetron Hcl 4 Mg/2 Ml Vial) 4 mg IVPUSH Q8H PRN PRN Reason: Nausea and Vomiting Pharmacy Consult (Consult Rx Perform Med Rec) 1 each MISCELLANE ONCE PRN PRN Reason: Consult order Sodium Chloride (0.9 % Sodium Chloride Flush 3 Ml Syringe) 3 ml IVFLUSH QSHIFT [facility] Home Medications Medication Instructions Recorded Confirmed Last Taken Type acetaminophen 500 mg tablet 500 mg PO Q6H PRN 12/28/21 12/28/21 Unknown History calcium carbonate 200 mg calcium 200 mg PO QID PRN 12/28/21 12/28/21 Unknown History (500 mg) chewable tablet (Tums) diphenhydramine HCl 25 mg capsule 25 mg PO TID PRN 12/28/21 12/28/21 Unknown History (Benadryl) ibuprofen 600 mg tablet 600 mg PO Q6H PRN 12/28/21 12/28/21 Unknown History nitrofurantoin 1 cap PO BID 12/28/21 12/28/21 12/28/21 History monohydrate/macrocrystals 100 mg capsule nystatin 100,000 unit/mL oral 5 ml PO QID 12/28/21 12/28/21 12/28/21 History suspension pantoprazole 40 mg tablet,delayed 1 tab PO DAILY 12/28/21 12/28/21 12/28/21 History release Physical Exam Vital Signs and Narrative: Vital Signs: Last Vital Signs Temp 98.3 F 12/28/21 20:00 Pulse 85 12/28/21 22:08 Resp 16 12/28/21 23:52 BP 168/102 H 12/28/21 22:08 Pulse Ox 99 12/28/21 22:08 BMI result Body Mass Index 33.9 Const: General: cooperative and no acute distress Orientation/consciousness: patient oriented x3 Eyes: General: appearance normal, both eyes and all related structures Pupils: Equal, round and reactive pupils present Resp: Effort & Inspection: normal respiratory effort Auscultation: clear to auscultation bilaterally Cardio: Rate: regular rate Rhythm: regular rhythm GI: Other: Diffuse tenderness worse in the right lower quadrant, there is guarding Palpation (GI): Soft to palpation Auscultation: normal bowel sounds Skin: General skin exam: no rashes or lesions noted Neuro: General: patient oriented x3 Cranial nerves: Yes Equal, round and reactive pupils present Cognition (Neuro): normal cognition Extrem: General: Yes normal to inspection and Yes no pedal edema Results Labs CBC and Chem 7: 12/29/21 05:57 12/29/21 05:57 Labs: Laboratory Results - last 24 hr 12/28/21 12/28/21 12/28/21 18:06 18:06 20:34 MCV 83.2 MCH 29.9 MCHC 36.0 RDW 11.9 Plt Count 238 D MPV 8.8 L Immature Gran % (Auto) 0.3 Neut % (Auto) 63.3 Lymph % (Auto) 21.5 [place] % (Auto) 8.2 Eos % (Auto) 6.1 H Baso % (Auto) 0.6 Lymph # (Auto) 2.6 [place] # (Auto) 1.0 Eos # (Auto) 0.7 H Baso # (Auto) 0.1 Abs Immat Gran (auto) 0.03 Absolute Neuts (auto) 7.6 Absolute Nucleated RBC 0.000 Nucleated RBC % (auto) 0.0 Anion Gap 11 L Creatinine 3.45 H Estim Creat Clear Calc 39.9 Estimated GFR 21 Random Glucose 106 Lactic Acid Calcium 12.9 H* D Total Bilirubin 0.2 Direct Bilirubin < 0.2 AST 75 H ALT 61 H Alkaline Phosphatase 56 Total Creatine Kinase Total Protein 6.5 Albumin 4.0 Lipase 24 Urine Color Urine Appearance Urine pH Ur Specific [place] Urine Protein Urine Glucose (UA) Urine Ketones Urine Blood Urine Nitrite Ur Leukocyte Esterase Urine RBC Urine WBC Ur Squamous Epith Cells Urine Bacteria COVID-19 (ARSALAN) Negative COVID-19 Clin Com See Note 12/28/21 12/28/21 12/28/21 20:34 20:34 22:14 MCV MCH MCHC RDW Plt Count MPV Immature Gran % (Auto) Neut % (Auto) Lymph % (Auto) [place] % (Auto) Eos % (Auto) Baso % (Auto) Lymph # (Auto) [place] # (Auto) Eos # (Auto) Baso # (Auto) Abs Immat Gran (auto) Absolute Neuts (auto) Absolute Nucleated RBC Nucleated RBC % (auto) Anion Gap Creatinine Estim Creat Clear Calc Estimated GFR Random Glucose Lactic Acid 0.7 Calcium Total Bilirubin Direct Bilirubin AST ALT Alkaline Phosphatase Total Creatine Kinase 2094 H Total Protein Albumin Lipase Urine Color YELLOW Urine Appearance CLEAR Urine pH 7.0 Ur Specific [place] <= 1.005 Urine Protein NEG Urine Glucose (UA) NEG Urine Ketones NEG Urine Blood 1+ H Urine Nitrite NEG Ur Leukocyte Esterase TRACE H Urine RBC 0-2 Urine WBC 0-2 Ur Squamous Epith Cells TRACE Urine Bacteria TRACE COVID-19 ([facility]ALAN) COVID-19 Clin Com Imaging Radiologist's Impressions: Impressions Abdomen/Pelvis CT 12/28/21 21:18 IMPRESSION: Acute uncomplicated distal descending colonic diverticulitis. No evidence of appendicitis. Assessment and Plan (1) ROSCOE (acute kidney injury): Status: Acute (2) Rhabdomyolysis: Status: Acute (3) Diverticulitis: Status: Acute (4) UTI (urinary tract infection): Status: Acute (5) Acute hypokalemia: Status: Acute Plan 31-year-old male with past medical history who presents to the hospital with abdominal pain found to have diverticulitis and other abnormalities # acute diverticulitis - as seen on CT abdomen - uncomplicated at this time - treat with IV antibiotics - follow cultures # ROSCOE - significant ROSCOE secondary to dehydration, vomiting and poor oral intake - IV fluids - follow BMP # UTI - positive UA - symptomatic - will treat with antibiotics # rhabdomyolysis - likely secondary to dehydration - will treat with IV fluids - follow BMP # acute hypokalemia - repleted - Follow BMP # hypercalcemia - secondary to dehydration - IV fluids DVT prophylaxis: Lovenox Given the significant dehydration and need for IV fluids as well as IV antibiotics patient needs a medically necessary 2 night stay in the inpatient setting as he will do poorly outpatient Quality Stroke Does the patient have a stroke diagnosis?: No VTE Prior VTE?: No VTE Risk Level:: Medical - moderate - high VTE Device Contraindication: Treatment Not Indicated VTE Drug Contraindication: N/A - Med Ordered
[2021-12-29] MEDS: Enoxaparin Sodium 40 MG/0.4 ML SYRINGE SUBCUT (01:18)
[2021-12-29] MEDS: metroNIDAZOLE 500 MG TABLET PO ×2 (01:19→07:19)
[2021-12-29] MEDS: Lactated Ringers 1,000 ML 125 ML IVCONT ×3 (01:19→19:27)
[2021-12-29] MEDS: HYDROmorphone HCl 1 MG/ML SYRINGE IVPUSH (03:09)
[2021-12-29] MEDS: diphenhydrAMINE HCL 25 MG TABLET PO (05:30)
[2021-12-29] MEDS: Acetaminophen 325 MG TABLET 650 MG PO (05:30)
[2021-12-29] MEDS: ondansetron HCL 4 MG/2 ML VIAL IVPUSH ×2 (05:31→14:15)
[2021-12-29] MEDS: Morphine Sulfate 4 MG/ML CARTRIDGE IVPUSH ×4 (05:31→20:16)
[2021-12-29 06:01] LABS: MANUAL DIFF FLAG NO
[2021-12-29 06:03] LABS: Basophils Percent Auto 0.3 % (0-2); Eosinophils Absolute Auto 0.3 X10*3/uL (0.0-0.4); Eosinophils Percent Auto 2.2 % (0-4); Hemoglobin 9.4 g/dl (14.0-18.0); Imm Gran Abs Auto 0.05 X10*3/uL (0.00-0.03); Imm Gran Pct Auto 0.4 % (0.0-0.4); Lymphocytes Absolute Auto 1.9 X10*3/uL (1.2-4.9); Lymphocytes Percent Auto 15.5 % (20-40); Mean Corpuscular HGB Conc 34.8 g/dl (31.0-36.0); Mean Corpuscular Hemoglobin 29.7 pg (27.0-33.0); Mean Corpuscular Volume 85.2 fL (80.0-98.0); Mean Platelet Volume 8.8 fL (9.4-12.4); Monocytes Absolute Auto 0.9 X10*3/uL (0.1-1.2); Monocytes Percent Auto 7.1 % (2-11); Neutrophils Percent Auto 74.5 % (45-73); Platelet Count 213 X10*3/uL (160-400); Red Blood Count 3.17 X10*6/uL (4.60-5.80)
[2021-12-29 06:23] LABS: Anion Gap 11 (12-20); Blood Urea Nitrogen 35 mg/dL (9-16); Calcium 11.2 mg/dL (8.4-10.2); Carbon Dioxide 26 mmol/L (22-29); Chloride 106 mmol/L (96-108); Creatinine Clr Calc Pharmacy 47.3; Estimated Glomerular Filt Rate 25; Glucose Random 105 mg/dL (60-115); Potassium 3.3 mmol/L (3.3-5.1); Sodium 140 mmol/L (135-145)
[2021-12-29] MEDS: Nystatin Oral Susp 500,000 UNIT/5 ML ORAL.SUSP 500000 UNIT PO (07:19)
[2021-12-29] MEDS: Omeprazole 20 MG CAPSULE.DR PO (07:19)
[2021-12-29] MEDS: Piperacillin Sodium/Tazobactam 3.375 GM in 0.9 % Sodium Chloride 50 ML IV ×3 (07:59→19:26)
--- NOTE | 2021-12-29 14:39 | PM.EVENT ---
Event Note Date of Service: 12/29/21 Event Note: Chart reviewed patient examined. Agree with history and physical and assessment and plan as outlined by Dr. Bowens
--- NOTE | 2021-12-29 15:02 | MHC.CM.PN ---
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 PT REPORTS HE HAS CODI LORENZO FOR A PCP HOWEVER HAS NOT HAD HIS 1ST APPT AND APPT SCHED FOR 04/30/22, PT REPORTS HIS MOTHER IS HIS HCP ROSI ESCAMILLA [phone] AND COPY HAS BEEN REQUESTED, PT REPORTS ONLY HAVING ONE MODERNA VACCINE AND DEVELOPED SCAR TISSUE BETWEEN HIS HEART AND LUNG AND HAS NO PLAN TO GET ANY MORE COVID VACCINES. D/C PLAN: HOME NO SERVICES, PARENTS FOR TRANSPORT
[2021-12-29] MEDS: Nicotine Polacrilex 2 MG GUM BUCCAL (16:21)
[2021-12-30] MEDS: diphenhydrAMINE HCL 25 MG TABLET PO (00:11)
[2021-12-30] MEDS: Enoxaparin Sodium 40 MG/0.4 ML SYRINGE SUBCUT (00:12)
[2021-12-30] MEDS: Morphine Sulfate 4 MG/ML CARTRIDGE IVPUSH ×3 (00:12→10:55)
[2021-12-30] MEDS: Piperacillin Sodium/Tazobactam 3.375 GM in 0.9 % Sodium Chloride 50 ML IV ×4 (01:52→20:09)
[2021-12-30] MEDS: Lactated Ringers 1,000 ML 125 ML IVCONT ×3 (01:54→20:08)
[2021-12-30 05:37] LABS: MANUAL DIFF FLAG NO
[2021-12-30 05:43] LABS: Basophils Percent Auto 0.3 % (0-2); Eosinophils Absolute Auto 0.6 X10*3/uL (0.0-0.4); Eosinophils Percent Auto 5.6 % (0-4); Hemoglobin 9.1 g/dl (14.0-18.0); Imm Gran Abs Auto 0.03 X10*3/uL (0.00-0.03); Imm Gran Pct Auto 0.3 % (0.0-0.4); Lymphocytes Absolute Auto 2.4 X10*3/uL (1.2-4.9); Lymphocytes Percent Auto 23.2 % (20-40); Mean Corpuscular Hemoglobin 30.1 pg (27.0-33.0); Mean Corpuscular Volume 86.1 fL (80.0-98.0); Mean Platelet Volume 9.2 fL (9.4-12.4); Monocytes Absolute Auto 0.9 X10*3/uL (0.1-1.2); Monocytes Percent Auto 8.4 % (2-11); Neutrophils Absolute Auto 6.5 x10*3/uL (2.0-8.3); Neutrophils Percent Auto 62.2 % (45-73); Platelet Count 198 X10*3/uL (160-400); Red Blood Count 3.02 X10*6/uL (4.60-5.80); Red Cell Distribution Width 12.1 % (11.0-16.0); White Blood Count 10.5 X10*3/uL (4.8-10.8)
[2021-12-30 06:02] LABS: Alanine Aminotransferase 42 U/L (0-40); Albumin Level 3.6 g/dL (3.5-5.0); Alkaline Phosphatase 49 U/L (39-117); Anion Gap 11 (12-20); Aspartate Amino Transferase 38 U/L (5-37); Bilirubin Total 0.6 mg/dL (0.0-1.0); Blood Urea Nitrogen 26 mg/dL (9-16); Calcium 10.8 mg/dL (8.4-10.2); Carbon Dioxide 29 mmol/L (22-29); Chloride 105 mmol/L (96-108); Creatinine Clr Calc Pharmacy 48.5; Estimated Glomerular Filt Rate 26; Glucose Fasting 120 mg/dL (60-99); Potassium 3.4 mmol/L (3.3-5.1); Sodium 142 mmol/L (135-145); Total Protein 5.7 g/dL (6.5-8.0)
[2021-12-30 07:38] VITALS: BP 160/91; PULSE 91; RESP 18; TEMP 37; O2SAT 98
[2021-12-30] MEDS: Nystatin Oral Susp 500,000 UNIT/5 ML ORAL.SUSP 500000 UNIT PO ×2 (07:50→18:05)
[2021-12-30] MEDS: Omeprazole 20 MG CAPSULE.DR PO (07:50)
--- NOTE | 2021-12-30 09:27 | HO.PM.IMPN ---
Subjective Subjective Date of Service: 12/30/21 Interval History: No acute events overnight; initially started on low residue diet however not tolerating. Review of Systems Denies chest pain Denies shortness of breath Denies nausea vomiting diarrhea Denies fever chills Physical Exam Vital Signs: Vital Signs: Last Vital Signs Temp 98.6 F 12/30/21 07:38 Pulse 91 12/30/21 07:38 Resp 18 12/30/21 07:38 BP 160/91 H 12/30/21 07:38 Pulse Ox 98 12/30/21 07:38 BMI result Body Mass Index 33.9 Const: Other: Awake alert no acute distress Resp: Other: Clear to auscultation bilaterally no rales rhonchi or wheezes Cardio: Other: No S4; positive S1-S2; no S3 murmurs or gallops GI: Other: Soft minimal diffuse tenderness lower abdomen without acute peritoneal signs. Bowel sounds in the quiet side Extrem: Other: No edema bilaterally Objective Data Active Medications Acetaminophen (Acetaminophen 325 Mg Tablet) 650 mg PO Q6H PRN PRN Reason: Pain, Mild (Pain Scale 1-3) Last Admin: 12/29/21 05:30 Dose: 650 mg Documented by: ANUP Calcium Carbonate (Calcium Carbonate 500 Mg Tablet) 250 mg PO QID PRN PRN Reason: Heartburn Diphenhydramine HCl (Diphenhydramine Hcl 25 Mg Tablet) 25 mg PO TID PRN PRN Reason: allergies Last Admin: 12/30/21 00:11 Dose: 25 mg Documented by: RUBEN Docusate Sodium (Docusate Sodium 100 Mg Capsule) 100 mg PO DAILY PRN PRN Reason: Constipation Enoxaparin Sodium (Enoxaparin Sodium 40 Mg/0.4 Ml Syringe) 40 mg SUBCUT Q24H [facility] Last Admin: 12/30/21 00:12 Dose: 40 mg Documented by: RUBEN Lactated Ringer's (Lr) 1,000 mls @ 125 mls/hr IVCONT .Q8H [facility] Last Admin: 12/30/21 07:52 Dose: Not Given Documented by: MALKA Non-Admin Reason: IV Running Piperacillin Sod/Tazobactam (Sod 3.375 gm/ Sodium Chloride) 50 mls @ 100 mls/hr IV Q6H [facility] Last Admin: 12/30/21 07:48 Dose: 100 mls/hr Documented by: MALKA Morphine Sulfate (Morphine Sulfate 4 Mg/Ml Cartridge) 4 mg IVPUSH Q4H PRN; Protocol PRN Reason: Pain, Severe (Pain Scale 7-10) Last Admin: 12/30/21 05:33 Dose: 4 mg Documented by: RUBEN Nicotine Polacrilex (Nicotine Polacrilex 2 Mg Gum) 2 mg BUCCAL Q2H PRN PRN Reason: Nicotine Cravings Last Admin: 12/29/21 16:21 Dose: 2 mg Documented by: COTANALISA Nystatin (Nystatin Oral Susp 500,000 Unit/5 Ml Oral.Susp) 500,000 unit PO QID [facility]; Protocol Last Admin: 12/30/21 07:50 Dose: 500,000 unit Documented by: MALKA Omeprazole (Omeprazole 20 Mg Capsule.Dr) 20 mg PO DAILY [facility] Last Admin: 12/30/21 07:50 Dose: 20 mg Documented by: MALKA Ondansetron HCl (Ondansetron Hcl 4 Mg/2 Ml Vial) 4 mg IVPUSH Q8H PRN PRN Reason: Nausea and Vomiting Last Admin: 12/29/21 14:15 Dose: 4 mg Documented by: ROSSY Pharmacy Consult (Consult Rx Perform Med Rec) 1 each MISCELLANE ONCE PRN PRN Reason: Consult order Sodium Chloride (0.9 % Sodium Chloride Flush 3 Ml Syringe) 3 ml IVFLUSH QSHIFT [facility] Last Admin: 12/30/21 07:51 Dose: Not Given Documented by: MALKA Non-Admin Reason: IV Running Labs CBC & Chem 7: 12/30/21 05:17 12/30/21 05:17 Labs: Laboratory Results - last 24 hr 12/30/21 12/30/21 05:17 05:17 MCV 86.1 MCH 30.1 MCHC 35.0 RDW 12.1 Plt Count 198 MPV 9.2 L Immature Gran % (Auto) 0.3 Neut % (Auto) 62.2 Lymph % (Auto) 23.2 [place] % (Auto) 8.4 Eos % (Auto) 5.6 H Baso % (Auto) 0.3 Lymph # (Auto) 2.4 [place] # (Auto) 0.9 Eos # (Auto) 0.6 H Baso # (Auto) 0.0 Abs Immat Gran (auto) 0.03 Absolute Neuts (auto) 6.5 Absolute Nucleated RBC 0.000 Nucleated RBC % (auto) 0.0 Anion Gap 11 L Estim Creat Clear Calc 48.5 Estimated GFR 26 Fasting Glucose 120 H Calcium 10.8 H Total Bilirubin 0.6 AST 38 H D ALT 42 H Alkaline Phosphatase 49 Total Protein 5.7 L Albumin 3.6 Microbiology Microbiology Results: Microbiology 12/28/21 21:13 Blood Culture - Preliminary Blood - Venous No growth after 24 hours. 12/28/21 20:34 Blood Culture - Preliminary Blood - Venous No growth after 24 hours. Assessment and Plan (1) ROSCOE (acute kidney injury): Status: Acute (2) Rhabdomyolysis: Status: Acute (3) Diverticulitis: Status: Acute (4) UTI (urinary tract infection): Status: Acute (5) Hypercalcemia: Status: Acute Plan 31-year-old male presents to the hospital with abdominal pain found to have diverticulitis; also found to have acute kidney injury secondary to persistent for vomiting and limited p.o. intake 1.Acute diverticulitis - did not tolerate low residue diet; switch to clear liquids - continue Zosyn as ordered - GI consult 2. ROSCOE - no significant improvement despite IV fluids - consult to renal 3.Rhabdomyolysis - continue IV fluids as ordered -await Renal input 4.Hypercalcemia - responding to IV fluids - follow clinically Lovenox Full code Requires inpatient therapies including IV fluids for treatment of ROSCOE and rhabdomyolysis Quality Stroke Does the patient have a stroke diagnosis?: No VTE Prior VTE?: No VTE Risk Level:: Medical - moderate - high VTE Device Contraindication: Treatment Not Indicated VTE Drug Contraindication: N/A - Med Ordered
--- NOTE | 2021-12-30 10:59 | PM.CNNEP ---
History of Present Illness Reason for Consult Consult date: 12/30/21 Chief Complaint Chief complaint: ROSCOE, Diverticulitis, Rhabdo History of Present Illness Narrative: 31-year-old male with a medical history of nephrolithiasis (1 stone at age 16) , history of gynecomastia status post surgical excision, presents to the hospital with complaints of right lower abdominal pain.? Patient reports that he has had history of diverticulitis, but has been struggling with this abdominal pain for the past 6 months that worsened over the last 10 days.? The pain is localized to the right lower abdomen, 9/10, constant, radiating across the abdomen to the left.? No alleviating or exacerbating factors.? 4 days of nausea and vomiting.? He reports that every time he tries to eat anything he throws up right away.? He has been feeling significantly dehydrated, and reports inability to keep any p.o. down.? He denies any fever no chills, no diarrhea constipation, no chest pain, no shortness of breath, reports urinary frequency for the past 3 days, no lower extremity edema.? No weakness numbness or tingling. On admission, he has ROSCOE with hypercalcemia Has been taking about 15 TUMS a day for dyspepsia Review of Systems Constitutional: Denies anorexia, Denies fatigue, Denies fever(s) and Denies headache(s) Eyes: Denies blurry vision and Denies itchy eyes Denies Normal hearing present, Denies dysphagia, Denies vertigo and Denies headache(s) Cardiovascular: Denies chest pain and Denies rapid heart rate Respiratory: Denies chest congestion and Denies cough Gastrointestinal: Denies bloating, Denies constipation, Denies dysphagia, Denies diarrhea and Reports vomiting Genitourinary: Denies hematuria Musculoskeletal: Reports back pain, Denies myalgias and Denies joint swelling Denies Normal hearing present, Denies vertigo and Denies headache(s) Endocrine: Denies cold intolerance, Denies fatigue and Denies flushing Allergic/Immunologic: Denies urticaria and Denies itchy eyes PMFSH Past Medical History Medical History H/O gynecomastia Nephrolithiasis No known health problems Seasonal allergies Family History Family History Maternal Grandfather Liver cancer Paternal Grandmother Cancer of unknown origin Surgical History Surgical History S/P excision of lipoma Social History Social History Household Members: None Housing: Apartment Do you presently have visiting nurse or other home services: No Alcohol intake: never Patient Tobacco Use Status: Current everyday Tobacco user Tobacco use type: Cigarette Cigarette Packs Per Day: 0.5 Cigarettes Per Day: 10.0 Years Smoked: 15 e-Cigarette/Vaping Use: Currently Using service: No Current occupational status: employed Travel History Ebola Risk: Travel/Contact With Anyone From Affected Area/s: No Meds Allergies Allergy/AdvReac Type Severity Reaction Status Date / Time cat dander Allergy Severe Facial Verified 09/05/21 08:54 Swelling mold Allergy Intermediate Shortness Verified 09/05/21 08:54 of Breath Active Medications: Current Medications Acetaminophen (Acetaminophen 325 Mg Tablet) 650 mg PO Q6H PRN PRN Reason: Pain, Mild (Pain Scale 1-3) Last Admin: 12/29/21 05:30 Dose: 650 mg Documented by: Calcium Carbonate (Calcium Carbonate 500 Mg Tablet) 250 mg PO QID PRN PRN Reason: Heartburn Diphenhydramine HCl (Diphenhydramine Hcl 25 Mg Tablet) 25 mg PO TID PRN PRN Reason: allergies Last Admin: 12/30/21 00:11 Dose: 25 mg Documented by: Docusate Sodium (Docusate Sodium 100 Mg Capsule) 100 mg PO DAILY PRN PRN Reason: Constipation Enoxaparin Sodium (Enoxaparin Sodium 40 Mg/0.4 Ml Syringe) 40 mg SUBCUT Q24H [facility] Last Admin: 12/30/21 00:12 Dose: 40 mg Documented by: Lactated Ringer's (Lr) 1,000 mls @ 125 mls/hr IVCONT .Q8H [facility] Last Admin: 12/30/21 07:52 Dose: Not Given Documented by: Piperacillin Sod/Tazobactam (Sod 3.375 gm/ Sodium Chloride) 50 mls @ 100 mls/hr IV Q6H [facility] Last Infusion: 12/30/21 09:52 Dose: Infused Documented by: Morphine Sulfate (Morphine Sulfate 4 Mg/Ml Cartridge) 4 mg IVPUSH Q4H PRN; Protocol PRN Reason: Pain, Severe (Pain Scale 7-10) Last Admin: 12/30/21 05:33 Dose: 4 mg Documented by: Nicotine Polacrilex (Nicotine Polacrilex 2 Mg Gum) 2 mg BUCCAL Q2H PRN PRN Reason: Nicotine Cravings Last Admin: 12/29/21 16:21 Dose: 2 mg Documented by: Nystatin (Nystatin Oral Susp 500,000 Unit/5 Ml Oral.Susp) 500,000 unit PO QID [facility]; Protocol Last Admin: 12/30/21 07:50 Dose: 500,000 unit Documented by: Omeprazole (Omeprazole 20 Mg Capsule.Dr) 20 mg PO DAILY [facility] Last Admin: 12/30/21 07:50 Dose: 20 mg Documented by: Ondansetron HCl (Ondansetron Hcl 4 Mg/2 Ml Vial) 4 mg IVPUSH Q8H PRN PRN Reason: Nausea and Vomiting Last Admin: 12/29/21 14:15 Dose: 4 mg Documented by: Pharmacy Consult (Consult Rx Perform Med Rec) 1 each MISCELLANE ONCE PRN PRN Reason: Consult order Sodium Chloride (0.9 % Sodium Chloride Flush 3 Ml Syringe) 3 ml IVFLUSH [facility] Last Admin: 12/30/21 07:51 Dose: Not Given Documented by: Home Medications Medication Instructions Recorded Confirmed Last Taken Type acetaminophen 500 mg tablet 500 mg PO Q6H PRN 12/28/21 12/28/21 Unknown History calcium carbonate 200 mg calcium 200 mg PO QID PRN 12/28/21 12/28/21 Unknown History (500 mg) chewable tablet (Tums) diphenhydramine HCl 25 mg capsule 25 mg PO TID PRN 12/28/21 12/28/21 Unknown History (Benadryl) ibuprofen 600 mg tablet 600 mg PO Q6H PRN 12/28/21 12/28/21 Unknown History nitrofurantoin 1 cap PO BID 12/28/21 12/28/21 12/28/21 History monohydrate/macrocrystals 100 mg capsule nystatin 100,000 unit/mL oral 5 ml PO QID 12/28/21 12/28/21 12/28/21 History suspension pantoprazole 40 mg tablet,delayed 1 tab PO DAILY 12/28/21 12/28/21 12/28/21 History release Physical Exam Vital Signs: Last Vital Signs Temp 98.6 F 12/30/21 07:38 Pulse 91 12/30/21 07:38 Resp 18 12/30/21 07:38 BP 160/91 H 12/30/21 07:38 Pulse Ox 98 12/30/21 07:38 BMI result Body Mass Index 33.9 Const General: alert and awake Orientation/consciousness: oriented to person and oriented to place Eyes General: appearance normal, both eyes and all related structures Pupils: Equal, round and reactive pupils present Neck Neck: Yes normal visual inspection Chest Chest palpation & inspection: normal palpation of entire chest wall Resp Effort & Inspection: normal respiratory effort, able to speak in complete sentences and symmetric chest movement Auscultation: no crackles Cardio Jugular venous distension: no JVD Palpation: no palpable S3 Heart sounds: no murmurs and no rubs GI Inspection: Yes normal to inspection Palpation (GI): Soft to palpation and nontender General: Yes no CVA tenderness Back/Spine/Pelvis Back: no CVA tenderness Skin General skin exam: no rashes or lesions noted Neuro General: oriented to person and oriented to place Cranial nerves: Yes Equal, round and reactive pupils present and No Normal hearing present Motor exam (neuro): no asterixis Results Lab Results Result Diagrams: 12/30/21 05:17 12/30/21 05:17 Lab results: Chemistry 12/28/21 12/29/21 12/30/21 18:06 05:57 05:17 Sodium 138 140 142 Potassium 3.1 L 3.3 3.4 Carbon Dioxide 30 H 26 29 BUN 40 H 35 H 26 H Creatinine 3.45 H 2.91 H 2.84 H Calcium 12.9 H* D 11.2 H D 10.8 H Hematology 12/28/21 12/29/21 12/30/21 18:06 05:57 05:17 WBC 12.0 H 12.0 H 10.5 Hgb 10.0 L 9.4 L 9.1 L Plt Count 238 D 213 198 Urinalysis 12/28/21 22:14 Urine Color YELLOW Urine Appearance CLEAR Urine pH 7.0 Ur Specific [place] <= 1.005 Urine Protein NEG Urine Glucose (UA) NEG Urine Ketones NEG Urine Blood 1+ H Urine Nitrite NEG Ur Leukocyte Esterase TRACE H Urine RBC 0-2 Urine WBC 0-2 Ur Squamous Epith Cells TRACE Assessment and Plan (1) Hypercalcemia: Status: Acute (2) ROSCOE (acute kidney injury): Status: Acute (3) Rhabdomyolysis: Status: Acute Plan ROSCOE Most likely due to hypoperfusion from volume depletion and continued used of NSAIDS Hypercalcemia might be a contributing factor Possible pigment nephropathy Hypercalcemia Likely from due to excessive Ca intake Low urine SG may be due to hypercalcemia induced nephrogenic DI Anemia Suggest DC TUMS DC NSAIDS IV hydration with NS Check SPEP/UPEP/PTH Avoid hypotension Watch K and phos Procedures Date of Service Date of Service: 12/30/21
--- NOTE | 2021-12-30 14:29 | PM.EVENT ---
Event Note Date of Service: 12/30/21 Event Note: GI consult dictated Giovany is well known to me from outpatient evaluation. Reflux symptoms have been improving on pantoprazole started earlier in December. Nausea and vomiting currently being treated with Zofran, and uncomplicated diverticulitis with iv abx. Dicyclomine added to help with complaints of abd discomfort.
[2021-12-30] MEDS: ondansetron HCL 4 MG/2 ML VIAL IVPUSH (14:31)
[2021-12-30 15:47] VITALS: BP 173/94; PULSE 88; RESP 18; TEMP 36.9; O2SAT 100
[2021-12-30] MEDS: oxyCODONE HCl Immed Release 5 MG TABLET PO (15:47)
[2021-12-30] MEDS: Dicyclomine HCl 10 MG CAPSULE 20 MG PO ×2 (18:05→20:09)
[2021-12-30 23:07] LABS: Total Protein Urine Random 26 mg/dL (<12)
[2021-12-30 23:58] VITALS: BP 169/97; PULSE 83; RESP 16; TEMP 36.3; O2SAT 95
[2021-12-31] MEDS: ondansetron HCL 4 MG/2 ML VIAL IVPUSH ×2 (01:27→15:48)
[2021-12-31] MEDS: Morphine Sulfate 4 MG/ML CARTRIDGE IVPUSH ×6 (01:29→23:56)
[2021-12-31] MEDS: Enoxaparin Sodium 40 MG/0.4 ML SYRINGE SUBCUT ×2 (01:30→23:56)
[2021-12-31] MEDS: diphenhydrAMINE HCL 25 MG TABLET PO (02:20)
[2021-12-31] MEDS: Acetaminophen 325 MG TABLET 650 MG PO ×2 (02:20→10:00)
[2021-12-31] MEDS: Piperacillin Sodium/Tazobactam 3.375 GM in 0.9 % Sodium Chloride 50 ML IV ×4 (02:23→19:32)
--- NOTE | 2021-12-31 02:41 | CONS_ITS ---
DATE OF SERVICE: 12/30/2021 REFERRING PHYSICIAN: Yung Johnston DO REASON FOR CONSULTATION: Abdominal pain and diverticulitis. HISTORY OF PRESENT ILLNESS: The patient is a pleasant 31-year-old man known to me from outpatient evaluation. He has history of gastroesophageal reflux disease and has had symptoms of abdominal pain with nausea and vomiting over the last 6 months, which have been intermittent. Outpatient evaluation has included endoscopy on July 31, which was within normal limits endoscopically and biopsies showed no evidence of H pylori, Lindsey's esophagus, or celiac disease. There was evidence of reflux. He had persistent symptoms which did not improve with high-dose omeprazole and was switched to pantoprazole after trying [id number] lansoprazole. He reports since starting pantoprazole at the beginning of December, the reflux symptoms have greatly improved although he still had some vomiting. He also complains of pain on the left side of the abdomen, which is under the left upper quadrant and into the left chest area as well as pain in the right lower quadrant, which seems more related to the flank area. The quality of the pain can be sharp. He can have vomiting even without eating and reports dry heaves with foamy material. He does describe some chills at home and presented to the emergency department on December 28 with worsening symptoms. He was evaluated and noted to have acute renal failure with elevation of his BUN and creatinine and CT scanning was obtained for evaluation of his abdominal symptoms. This is reviewed and is interpreted as showing uncomplicated distal descending colonic diverticulitis. He was admitted to the hospital and has been started on intravenous antibiotics. He has also had his nausea and vomiting, treated with ondansetron with some improvement. Upper GI series obtained as an outpatient on November 07, showed a small hiatal hernia with a nonobstructive Schatzki ring. PAST MEDICAL HISTORY: 1. Gastroesophageal reflux disease. 2. Remote history of kidney stones. 3. Gynecomastia. 4. Lipoma. CURRENT MEDICATIONS: Current medication list is reviewed in the chart. ALLERGIES: THERE ARE NO DRUG ALLERGIES REPORTED. FAMILY HISTORY: This is reviewed with the patient and is noncontributory. SOCIAL HISTORY: There is tobacco use. Alcohol use is infrequent. REVIEW OF SYSTEMS: SKIN: No pruritus. HEENT: Negative. CARDIOPULMONARY: No shortness of breath or chest pain. GASTROINTESTINAL: As above. GENITOURINARY: Negative. NEUROPSYCHIATRIC: Negative. PHYSICAL EXAMINATION: GENERAL: Shows a pleasant male. VITAL SIGNS: Reviewed in the electronic medical record and are stable. SKIN: Anicteric. HEENT: Shows no scleral icterus. NECK: Without lymphadenopathy or thyromegaly. LUNGS: Clear. HEART: Shows a regular rate and rhythm. S1, S2. No murmur. ABDOMEN: Soft. There is mild tenderness to palpation in the left lower quadrant. Bowel sounds are present. No organomegaly is noted. EXTREMITIES: Without edema. LABORATORY DATA: Reviewed. IMPRESSION: 1. Diverticulitis. 2. Gastroesophageal reflux disease. At this time, he appears to have uncomplicated diverticulitis as above. I would recommend continuing intravenous antibiotics and switching to oral at the time of discharge, reflux symptoms appear to have improved on pantoprazole and I agree with treating him with ondansetron for his nausea and vomiting and would recommend this be continued as needed as an outpatient for his symptoms. Dicyclomine has been added to his regimen to see if this helps some of his complaints of abdominal pain. He will need followup colonoscopy as an outpatient in approximately 8 to 12 weeks because of his history of diverticulitis and if he has persistent upper GI symptoms, I would consider repeating endoscopy at that time. This was discussed with the patient. Thanks for asking me to see him. I will follow him in the hospital with you. MD BRIANA Palma/JANETTE / [phone]
[2021-12-31 05:48] LABS: MANUAL DIFF FLAG NO
[2021-12-31 06:03] LABS: Basophils Percent Auto 0.5 % (0-2); Eosinophils Absolute Auto 0.5 X10*3/uL (0.0-0.4); Eosinophils Percent Auto 6.1 % (0-4); Hematocrit 25.1 % (42.0-52.0); Hemoglobin 8.8 g/dl (14.0-18.0); Imm Gran Abs Auto 0.03 X10*3/uL (0.00-0.03); Imm Gran Pct Auto 0.3 % (0.0-0.4); Lymphocytes Percent Auto 22.9 % (20-40); Mean Corpuscular HGB Conc 35.1 g/dl (31.0-36.0); Mean Corpuscular Hemoglobin 29.8 pg (27.0-33.0); Mean Corpuscular Volume 85.1 fL (80.0-98.0); Mean Platelet Volume 9.2 fL (9.4-12.4); Monocytes Absolute Auto 0.6 X10*3/uL (0.1-1.2); Monocytes Percent Auto 6.9 % (2-11); Neutrophils Absolute Auto 5.6 x10*3/uL (2.0-8.3); Neutrophils Percent Auto 63.3 % (45-73); Platelet Count 213 X10*3/uL (160-400); Red Blood Count 2.95 X10*6/uL (4.60-5.80); White Blood Count 8.8 X10*3/uL (4.8-10.8)
[2021-12-31 06:23] LABS: Alanine Aminotransferase 36 U/L (0-40); Albumin Level 3.5 g/dL (3.5-5.0); Alkaline Phosphatase 44 U/L (39-117); Anion Gap 9 (12-20); Aspartate Amino Transferase 30 U/L (5-37); Bilirubin Total 0.4 mg/dL (0.0-1.0); Blood Urea Nitrogen 18 mg/dL (9-16); Calcium 10.5 mg/dL (8.4-10.2); Carbon Dioxide 31 mmol/L (22-29); Chloride 105 mmol/L (96-108); Creatinine Clr Calc Pharmacy 58.4; Estimated Glomerular Filt Rate 32; Glucose Fasting 98 mg/dL (60-99); Potassium 3.3 mmol/L (3.3-5.1); Sodium 142 mmol/L (135-145); Total Protein 5.7 g/dL (6.5-8.0)
--- NOTE | 2021-12-31 06:29 | PC.NURSE ---
pt still c/o nausea and vomiting not observed not able to keep anything down but he did asked for jello few times. still has pain in abdomen
[2021-12-31] MEDS: Dicyclomine HCl 10 MG CAPSULE 20 MG PO ×4 (07:39→19:32)
[2021-12-31 08:00] VITALS: PULSE 82; RESP 18; TEMP 36.6
[2021-12-31] MEDS: 0.9 % Sodium Chloride Flush 3 ML SYRINGE IVFLUSH ×2 (08:23→15:49)
[2021-12-31] MEDS: 0.9 % Sodium Chloride 1,000 ML 125 ML IVCONT ×3 (08:24→23:57)
[2021-12-31] MEDS: Omeprazole 20 MG CAPSULE.DR PO (10:01)
[2021-12-31] MEDS: Nystatin Oral Susp 500,000 UNIT/5 ML ORAL.SUSP 500000 UNIT PO ×4 (10:01→19:32)
--- NOTE | 2021-12-31 10:36 | PM.PNNEP ---
Subjective Subjective Date of Service: 01/03/22 Interval history: Feels about the same Still with nausea /vomiting Physical Exam Vital Signs: Vital Signs: Last Vital Signs Temp 97.9 F 12/31/21 08:00 Pulse 82 12/31/21 08:00 Resp 18 12/31/21 08:00 BP 169/97 H 12/30/21 23:58 Pulse Ox 95 12/30/21 23:58 BMI result Body Mass Index 33.9 Const: General: alert and awake Orientation/consciousness: oriented to person and oriented to place Eyes: General: appearance normal, both eyes and all related structures Pupils: Equal, round and reactive pupils present Neck: Neck: Yes normal visual inspection Chest: Chest palpation & inspection: normal palpation of entire chest wall Resp: Effort & Inspection: normal respiratory effort, able to speak in complete sentences and symmetric chest movement Auscultation: no crackles Cardio: Jugular venous distension: no JVD Palpation: no palpable S3 Heart sounds: no murmurs and no rubs GI: Inspection: Yes normal to inspection Palpation (GI): Soft to palpation and nontender : General: Yes no CVA tenderness Back/Spine/Pelvis: Back: no CVA tenderness Skin: General skin exam: no rashes or lesions noted Neuro: General: oriented to person and oriented to place Cranial nerves: Yes Equal, round and reactive pupils present and No Normal hearing present Motor exam (neuro): no asterixis Objective Data Labs CBC & Chem 7: 01/01/22 05:23 01/03/22 05:57 Labs: Laboratory Results - last 24 hr 12/30/21 12/31/21 12/31/21 22:40 05:20 05:20 WBC 8.8 RBC 2.95 L Hgb 8.8 L Hct 25.1 L MCV 85.1 MCH 29.8 MCHC 35.1 RDW 12.0 Plt Count 213 MPV 9.2 L Immature Gran % (Auto) 0.3 Neut % (Auto) 63.3 Lymph % (Auto) 22.9 [place] % (Auto) 6.9 Eos % (Auto) 6.1 H Baso % (Auto) 0.5 Lymph # (Auto) 2.0 [place] # (Auto) 0.6 Eos # (Auto) 0.5 H Baso # (Auto) 0.0 Abs Immat Gran (auto) 0.03 Absolute Neuts (auto) 5.6 Absolute Nucleated RBC 0.000 Nucleated RBC % (auto) 0.0 Sodium 142 Potassium 3.3 Chloride 105 Carbon Dioxide 31 H Anion Gap 9 L BUN 18 H Creatinine 2.36 H Estim Creat Clear Calc 58.4 Estimated GFR 32 Fasting Glucose 98 Calcium 10.5 H Total Bilirubin 0.4 AST 30 ALT 36 Alkaline Phosphatase 44 Total Protein 5.7 L Albumin 3.5 U Random Total Protein 26 H Microbiology Microbiology Results: Microbiology 12/28/21 21:13 Blood - Venous Blood Culture - Preliminary No growth after 48 hours. 12/28/21 20:34 Blood - Venous Blood Culture - Preliminary No growth after 48 hours. Procedures Date of Service Date of Service: 12/31/21 Assessment & Plan Assessment and plan (1) Hypercalcemia: Status: Acute (2) ROSCOE (acute kidney injury): Status: Acute (3) Rhabdomyolysis: Status: Acute Plan ROSCOE Most likely due to hypoperfusion from volume depletion and continued used of NSAIDS Hypercalcemia might be a contributing factor Possible pigment nephropathy Hypercalcemia Likely from due to excessive Ca intake Low urine SG may be due to hypercalcemia induced nephrogenic DI Anemia Suggest DC TUMS DC NSAIDS - done continue IV hydration with NS Check SPEP/UPEP/PTH - pending Avoid hypotension Watch K and phos Time Spent With Patient Time: Total time spent is greater than 50% in coordination of care (as documented) at patient's floor/unit and/or counseling patient: Progress Note: Quality Stroke Does the patient have a stroke diagnosis?: No
--- NOTE | 2021-12-31 12:06 | HO.PM.IMPN ---
Subjective Subjective Date of Service: 12/31/21 Interval History: Did not tolerate diet. Episodes of nausea and vomiting overnight Review of Systems Denies chest pain Denies shortness of breath Admits nausea vomiting Denies fever chills Physical Exam Vital Signs: Vital Signs: Last Vital Signs Temp 97.9 F 12/31/21 08:00 Pulse 82 12/31/21 08:00 Resp 18 12/31/21 08:00 BP 169/97 H 12/30/21 23:58 Pulse Ox 95 12/30/21 23:58 BMI result Body Mass Index 33.9 Const: Other: Awake alert no acute distress Resp: Other: Clear to auscultation bilaterally no rales rhonchi or wheezes Cardio: Other: No S4; positive S1-S2; no S3 murmurs or gallops GI: Other: Soft minimal diffuse tenderness lower abdomen without acute peritoneal signs. Bowel sounds in the quiet side Extrem: Other: No edema bilaterally Objective Data Active Medications Acetaminophen (Acetaminophen 325 Mg Tablet) 650 mg PO Q6H PRN PRN Reason: Pain, Mild (Pain Scale 1-3) Last Admin: 12/31/21 10:00 Dose: 650 mg Documented by: DINAH Calcium Carbonate (Calcium Carbonate 500 Mg Tablet) 250 mg PO QID PRN PRN Reason: Heartburn Dicyclomine HCl (Dicyclomine Hcl 10 Mg Capsule) 20 mg PO QIDACHS FOR[facility]LY [facility], 1928[facility]1983 Last Admin: 12/31/21 11:18 Dose: 20 mg Documented by: DINAH Diphenhydramine HCl (Diphenhydramine Hcl 25 Mg Tablet) 25 mg PO TID PRN PRN Reason: allergies Last Admin: 12/31/21 02:20 Dose: 25 mg Documented by: RUBEN Docusate Sodium (Docusate Sodium 100 Mg Capsule) 100 mg PO DAILY PRN PRN Reason: Constipation Enoxaparin Sodium (Enoxaparin Sodium 40 Mg/0.4 Ml Syringe) 40 mg SUBCUT Q24H [facility], [facility] Last Admin: 12/31/21 01:30 Dose: 40 mg Documented by: RUBEN Piperacillin Sod/Tazobactam (Sod 3.375 gm/ Sodium Chloride) 50 mls @ 100 mls/hr IV Q6H [facility], [facility]1983 Last Infusion: 12/31/21 09:44 Dose: 0 mls/hr Documented by: MALKA Sodium Chloride (Ns) 1,000 mls @ 125 mls/hr IVCONT .Q8H [facility], [facility]1983 Last Admin: 12/31/21 08:24 Dose: 125 mls/hr Documented by: DINAH Morphine Sulfate (Morphine Sulfate 4 Mg/Ml Cartridge) 4 mg IVPUSH Q4H PRN; Protocol PRN Reason: Pain, Severe (Pain Scale 7-10) Last Admin: 12/31/21 10:02 Dose: 4 mg Documented by: DINAH Comments: 16 Nicotine Polacrilex (Nicotine Polacrilex 2 Mg Gum) 2 mg BUCCAL Q2H PRN PRN Reason: Nicotine Cravings Last Admin: 12/29/21 16:21 Dose: 2 mg Documented by: COTEMA Nystatin (Nystatin Oral Susp 500,000 Unit/5 Ml Oral.Susp) 500,000 unit PO QID [facility], [facility]; Protocol Last Admin: 12/31/21 10:01 Dose: 500,000 unit Documented by: DINAH Omeprazole (Omeprazole 20 Mg Capsule.Dr) 20 mg PO DAILY [facility] Last Admin: 12/31/21 10:01 Dose: 20 mg Documented by: DINAH Ondansetron HCl (Ondansetron Hcl 4 Mg/2 Ml Vial) 4 mg IVPUSH Q8H PRN PRN Reason: Nausea and Vomiting Last Admin: 12/31/21 01:27 Dose: 4 mg Documented by: RUBEN Oxycodone HCl (Oxycodone Hcl Immed Release 5 Mg Tablet) 5 mg PO Q4H PRN PRN Reason: moderate-sev pain Last Admin: 12/30/21 15:47 Dose: 5 mg Documented by: MALKA Pharmacy Consult (Consult Rx Perform Med Rec) 1 each MISCELLANE ONCE PRN PRN Reason: Consult order Sodium Chloride (0.9 % Sodium Chloride Flush 3 Ml Syringe) [facility] Last Admin: 12/31/21 08:23 Dose: 3 ml Documented by: DINAH Labs CBC & Chem 7: 12/31/21 05:20 12/31/21 05:20 Labs: Laboratory Results - last 24 hr 12/30/21 12/31/21 12/31/21 22:40 05:20 05:20 MCV 85.1 MCH 29.8 MCHC 35.1 RDW 12.0 Plt Count 213 MPV 9.2 L Immature Gran % (Auto) 0.3 Neut % (Auto) 63.3 Lymph % (Auto) 22.9 [place] % (Auto) 6.9 Eos % (Auto) 6.1 H Baso % (Auto) 0.5 Lymph # (Auto) 2.0 [place] # (Auto) 0.6 Eos # (Auto) 0.5 H Baso # (Auto) 0.0 Abs Immat Gran (auto) 0.03 Absolute Neuts (auto) 5.6 Absolute Nucleated RBC 0.000 Nucleated RBC % (auto) 0.0 Anion Gap 9 L Estim Creat Clear Calc 58.4 Estimated GFR 32 Fasting Glucose 98 Calcium 10.5 H Total Bilirubin 0.4 AST 30 ALT 36 Alkaline Phosphatase 44 Total Protein 5.7 L Albumin 3.5 U Random Total Protein 26 H Microbiology Microbiology Results: Microbiology 12/28/21 21:13 Blood Culture - Preliminary Blood - Venous No growth after 48 hours. 12/28/21 20:34 Blood Culture - Preliminary Blood - Venous No growth after 48 hours. Assessment and Plan (1) Diverticulitis: Status: Acute (2) ROSCOE (acute kidney injury): Status: Acute (3) Rhabdomyolysis: Status: Acute Plan 31-year-old male presents to the hospital with abdominal pain found to have diverticulitis; also found to have acute kidney injury secondary to persistent for vomiting and limited p.o. intake 1.Acute diverticulitis - did not tolerate low residue diet; switch to clear liquids - continue Zosyn as ordered 2. ROSCOE - no significant improvement despite IV fluids -appreciate renal input adjustments made 3.Rhabdomyolysis - continue IV fluids as ordered 4.Hypercalcemia - responding to IV fluids - follow clinically Lovenox Full code Requires inpatient therapies including IV fluids for treatment of ROSCOE and rhabdomyolysis Quality Stroke Does the patient have a stroke diagnosis?: No VTE Prior VTE?: No VTE Risk Level:: Medical - moderate - high VTE Device Contraindication: Treatment Not Indicated VTE Drug Contraindication: N/A - Med Ordered
--- NOTE | 2021-12-31 14:37 | MHC.CM.PN ---
NURSE CASE MANAGEMENT NOTE ELECTRONIC MEDICAL RECORD REVIEWED ALONG WITH CASE DISCUSSED WITH STAFF LORI AND OSMEL MET WITH PATIENT HE REPORTED HE MET WITH DR DUEÑAS AND THE RENAL PHYSICIAN AND WOULD BE HERE FOR A COUPLE OF MORE DAYS . PER DOCUMENTATION AMDITTED WITH ABDOMINAL PAIN FOUND TO HAVE DIVERTICULITIS, ACUTE KIDNEY INJURY AND RHABDOMYLOSIS , MONITORING ALL LABS , PATIENT DID NOT TOLERATED ADVANCEMENT TO TO LOW RESIDUE DIET AND WAS PLACED BACK ON CLEAR LIQUID DIET . CONTINUE WITH ZOSYN ORDERED AND CONTINUES WITH IV FLUIDS DISCHARGE PLAN HOME WITH NO SEVRICES ANTICIPATED PCP CODI VILLEGAS AT THE [facility] FAMI,Y OR FRIEND WILL NEED RETURN TO WORK NOTE AT DISCHARGE MODERNA X1
--- NOTE | 2021-12-31 15:17 | PM.GIPN ---
Subjective Subjective Date of Service: 12/31/21 Interval History: vomited last night feels better this pm Critical Care Time (minutes): 0 Physical Exam Vital Signs: Vital Signs: Last Vital Signs Temp 97.9 F 12/31/21 08:00 Pulse 82 12/31/21 08:00 Resp 18 12/31/21 08:00 BP 169/97 H 12/30/21 23:58 Pulse Ox 95 12/30/21 23:58 BMI result Body Mass Index 33.9 GI: Other: abdomen is soft and without focal tenderness Skin: Other: pale Objective Data Labs CBC & Chem 7: 12/31/21 05:20 12/31/21 05:20 Procedures Date of Service Date of Service: 12/31/21 Progress Note: A&P Assessment and plan (1) Diverticulitis: Status: Acute Plan gi issues appear to be settling down uncomplicated diverticulitis on ct, (limited exam) cont iv abx increase omeprazole to 40 mg daily to treat any component of GERD that may be contributing to nausea. continue dicyclomine and antiemetics Time Spent With Patient Time: Total time spent is greater than 50% in coordination of care (as documented) at patient's floor/unit and/or counseling patient: Quality Stroke Does the patient have a stroke diagnosis?: No VTE Prior VTE?: No VTE Risk Level:: Medical - moderate - high VTE Device Contraindication: Treatment Not Indicated VTE Drug Contraindication: N/A - Med Ordered
[2021-12-31 15:23] VITALS: BP 157/95; PULSE 81; RESP 18; TEMP 36.6; O2SAT 100
[2022-01-01] MEDS: Piperacillin Sodium/Tazobactam 3.375 GM in 0.9 % Sodium Chloride 50 ML IV ×4 (03:01→19:18)
[2022-01-01] MEDS: Acetaminophen 325 MG TABLET 650 MG PO ×3 (03:04→19:26)
[2022-01-01] MEDS: Morphine Sulfate 4 MG/ML CARTRIDGE IVPUSH ×3 (03:41→19:27)
[2022-01-01] MEDS: Omeprazole 40 MG CAPSULE.DR PO (05:25)
[2022-01-01 05:55] LABS: MANUAL DIFF FLAG NO
[2022-01-01 05:59] LABS: Basophils Absolute Auto 0.1 X10*3/uL (0.0-0.2); Basophils Percent Auto 0.7 % (0-2); Eosinophils Absolute Auto 0.7 X10*3/uL (0.0-0.4); Eosinophils Percent Auto 9.3 % (0-4); Hematocrit 24.2 % (42.0-52.0); Hemoglobin 8.5 g/dl (14.0-18.0); Imm Gran Abs Auto 0.01 X10*3/uL (0.00-0.03); Imm Gran Pct Auto 0.1 % (0.0-0.4); Lymphocytes Absolute Auto 1.7 X10*3/uL (1.2-4.9); Mean Corpuscular HGB Conc 35.1 g/dl (31.0-36.0); Mean Corpuscular Hemoglobin 29.3 pg (27.0-33.0); Mean Corpuscular Volume 83.4 fL (80.0-98.0); Monocytes Absolute Auto 0.6 X10*3/uL (0.1-1.2); Monocytes Percent Auto 8.4 % (2-11); Neutrophils Absolute Auto 4.4 x10*3/uL (2.0-8.3); Neutrophils Percent Auto 58.5 % (45-73); Platelet Count 220 X10*3/uL (160-400); White Blood Count 7.5 X10*3/uL (4.8-10.8)
[2022-01-01 06:25] LABS: Alanine Aminotransferase 32 U/L (0-40); Albumin Level 3.5 g/dL (3.5-5.0); Alkaline Phosphatase 42 U/L (39-117); Anion Gap 9 (12-20); Aspartate Amino Transferase 26 U/L (5-37); Bilirubin Total 0.3 mg/dL (0.0-1.0); Blood Urea Nitrogen 13 mg/dL (9-16); Calcium 9.7 mg/dL (8.4-10.2); Carbon Dioxide 28 mmol/L (22-29); Chloride 108 mmol/L (96-108); Creatinine Clr Calc Pharmacy 64.7; Estimated Glomerular Filt Rate 36; Glucose Fasting 86 mg/dL (60-99); Potassium 3.3 mmol/L (3.3-5.1); Sodium 142 mmol/L (135-145); Total Protein 5.6 g/dL (6.5-8.0)
[2022-01-01 07:36] VITALS: BP 175/92; PULSE 75; RESP 18; TEMP 36.3; O2SAT 97
[2022-01-01] MEDS: Dicyclomine HCl 10 MG CAPSULE 20 MG PO ×4 (08:13→19:19)
[2022-01-01] MEDS: 0.9 % Sodium Chloride Flush 3 ML SYRINGE IVFLUSH ×2 (08:15→20:24)
[2022-01-01] MEDS: Nystatin Oral Susp 500,000 UNIT/5 ML ORAL.SUSP 500000 UNIT PO ×4 (09:39→19:18)
[2022-01-01] MEDS: 0.9 % Sodium Chloride 1,000 ML 125 ML IVCONT ×2 (09:41→20:23)
--- NOTE | 2022-01-01 10:25 | HO.PM.IMPN ---
Subjective Subjective Date of Service: 01/01/22 Interval History: Ongoing N/V No diarrhea Abd pain improved Review of Systems Review of Systems: Yes all other systems are reviewed and are negative Physical Exam Vital Signs: Vital Signs: Last Vital Signs Temp 97.3 F 01/01/22 07:36 Pulse 75 01/01/22 07:36 Resp 18 01/01/22 07:36 BP 175/92 H 01/01/22 07:36 Pulse Ox 97 01/01/22 07:36 BMI result Body Mass Index 33.9 Gen: in no acute distress HEENT: sclera anicteric, moist mucus membranes Neck: supple Lungs: clear to auscultation bilaterally Heart: regular rate and rhythm, no murmurs Abd: soft, diffuse tenderness without rebound Ext: no edema Skin: warm/well-perfused Neuro: alert and oriented x3, no focal findings Psych: appropriate affect Objective Data Active Medications Acetaminophen (Acetaminophen 325 Mg Tablet) 650 mg PO Q6H PRN PRN Reason: Pain, Mild (Pain Scale 1-3) Last Admin: 01/01/22 03:04 Dose: 650 mg Documented by: RINA Calcium Carbonate (Calcium Carbonate 500 Mg Tablet) 250 mg PO QID PRN PRN Reason: Heartburn Dicyclomine HCl (Dicyclomine Hcl 10 Mg Capsule) 20 mg PO QIDACHS [facility] Last Admin: 01/01/22 08:13 Dose: 20 mg Documented by: DINAH Diphenhydramine HCl (Diphenhydramine Hcl 25 Mg Tablet) 25 mg PO TID PRN PRN Reason: allergies Last Admin: 12/31/21 02:20 Dose: 25 mg Documented by: RUBEN Docusate Sodium (Docusate Sodium 100 Mg Capsule) 100 mg PO DAILY PRN PRN Reason: Constipation Enoxaparin Sodium (Enoxaparin Sodium 40 Mg/0.4 Ml Syringe) 40 mg SUBCUT Q24H [facility] Last Admin: 12/31/21 23:56 Dose: 40 mg Documented by: RINA Piperacillin Sod/Tazobactam (Sod 3.375 gm/ Sodium Chloride) 50 mls @ 100 mls/hr IV Q6H [facility] Last Infusion: 01/01/22 10:16 Dose: 0 mls/hr Documented by: MARYCRUZ Sodium Chloride (Ns) 1,000 mls @ 125 mls/hr IVCONT .Q8H [facility] Last Admin: 01/01/22 09:41 Dose: 125 mls/hr Documented by: DINAH Morphine Sulfate (Morphine Sulfate 4 Mg/Ml Cartridge) 4 mg IVPUSH Q4H PRN; Protocol PRN Reason: Pain, Severe (Pain Scale 7-10) Last Admin: 01/01/22 08:13 Dose: 4 mg Documented by: DINAH Comments: 18 Nicotine Polacrilex (Nicotine Polacrilex 2 Mg Gum) 2 mg BUCCAL Q2H PRN PRN Reason: Nicotine Cravings Last Admin: 12/29/21 16:21 Dose: 2 mg Documented by: COTEMA Nystatin (Nystatin Oral Susp 500,000 Unit/5 Ml Oral.Susp) 500,000 unit PO QID [facility]; Protocol Last Admin: 01/01/22 09:39 Dose: 500,000 unit Documented by: DINAH Omeprazole (Omeprazole 40 Mg Capsule.Dr) 40 mg PO DAILY@0630 [facility] Last Admin: 01/01/22 05:25 Dose: 40 mg Documented by: RINA Ondansetron HCl (Ondansetron Hcl 4 Mg/2 Ml Vial) 4 mg IVPUSH Q8H PRN PRN Reason: Nausea and Vomiting Last Admin: 12/31/21 15:48 Dose: 4 mg Documented by: MALKA Oxycodone HCl (Oxycodone Hcl Immed Release 5 Mg Tablet) 5 mg PO Q4H PRN PRN Reason: moderate-sev pain Last Admin: 12/30/21 15:47 Dose: 5 mg Documented by: MALKA Pharmacy Consult (Consult Rx Perform Med Rec) 1 each MISCELLANE ONCE PRN PRN Reason: Consult order Sodium Chloride (0.9 % Sodium Chloride Flush 3 Ml Syringe) 3 ml IVFLUSH QSHIFT [facility] Last Admin: 01/01/22 08:15 Dose: 3 ml Documented by: DINAH Labs CBC & Chem 7: 01/01/22 05:23 01/01/22 05:23 Labs: Laboratory Results - last 24 hr 01/01/22 01/01/22 05:23 05:23 MCV 83.4 MCH 29.3 MCHC 35.1 RDW 12.0 Plt Count 220 MPV 9.0 L Immature Gran % (Auto) 0.1 Neut % (Auto) 58.5 Lymph % (Auto) 23.0 [place] % (Auto) 8.4 Eos % (Auto) 9.3 H Baso % (Auto) 0.7 Lymph # (Auto) 1.7 [place] # (Auto) 0.6 Eos # (Auto) 0.7 H Baso # (Auto) 0.1 Abs Immat Gran (auto) 0.01 Absolute Neuts (auto) 4.4 Absolute Nucleated RBC 0.000 Nucleated RBC % (auto) 0.0 Anion Gap 9 L Estim Creat Clear Calc 64.7 Estimated GFR 36 Fasting Glucose 86 Calcium 9.7 D Total Bilirubin 0.3 AST 26 ALT 32 Alkaline Phosphatase 42 Total Protein 5.6 L Albumin 3.5 Assessment and Plan (1) Diverticulitis: Status: Acute (2) ROSCOE (acute kidney injury): Status: Acute (3) Rhabdomyolysis: Status: Acute Plan hospital d#4 31yo M admitted with acute diverticulitis, ROSCOE, and rhabdomyolysis # acute diverticulitis - continue IV fluid hydration, continue pip/francisco javier d#4, outpt GI f/u for colonoscopy # prerenal ROSCOE - improving with IV fluid hydration, recheck BMP in AM # rhabdomyolysis - improved with IV fluid hydration # hyperCa - resolved with IV fluid hydration, 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
[2022-01-01] MEDS: Butalb/Acetamin/Caff 50/325/40 TABLET 1 TAB PO (11:47)
--- NOTE | 2022-01-01 11:54 | MHC.CM.PN ---
EMR REVIEWED, PT REMAINS ON IVF AND IV NARCOTIC PAIN MEDS, NO PLAN FOR D/C TODAY, PER HOSPITALIST ANTIC PT WILL D/C BY THURSDAY, PLAN FOR D/C HOME NO SERVICES AND PT WILL NEED RETURN TO WORK LETTER, CM WILL CONT TO FOLLOW D/C NEEDS.
[2022-01-01] MEDS: ondansetron HCL 4 MG/2 ML VIAL IVPUSH (12:30)
[2022-01-01 14:15] LABS: Calcium (PTHI) 10.2 mg/dL (8.6-10.3); PTHI 16 pg/mL (16-77)
[2022-01-01 15:10] VITALS: BP 152/70; PULSE 71; RESP 18; TEMP 36.9; O2SAT 99
--- NOTE | 2022-01-01 18:05 | PM.PNNEP ---
Subjective Subjective Date of Service: 01/04/22 Interval history: Ongoing N/V No diarrhea Abd pain improved Physical Exam Vital Signs: Vital Signs: Last Vital Signs Temp 98.5 F 01/01/22 15:10 Pulse 71 01/01/22 15:10 Resp 18 01/01/22 15:10 BP 152/70 H 01/01/22 15:10 Pulse Ox 99 01/01/22 15:10 BMI result Body Mass Index 33.9 Const: General: alert and awake Orientation/consciousness: oriented to person and oriented to place Eyes: General: appearance normal, both eyes and all related structures Pupils: Equal, round and reactive pupils present Neck: Neck: Yes normal visual inspection Chest: Chest palpation & inspection: normal palpation of entire chest wall Resp: Effort & Inspection: normal respiratory effort, able to speak in complete sentences and symmetric chest movement Auscultation: no crackles Cardio: Jugular venous distension: no JVD Palpation: no palpable S3 Heart sounds: no murmurs and no rubs GI: Inspection: Yes normal to inspection Palpation (GI): Soft to palpation and nontender : General: Yes no CVA tenderness Back/Spine/Pelvis: Back: no CVA tenderness Skin: General skin exam: no rashes or lesions noted Neuro: General: oriented to person and oriented to place Cranial nerves: Yes Equal, round and reactive pupils present and No Normal hearing present Motor exam (neuro): no asterixis Objective Data Labs CBC & Chem 7: 01/01/22 05:23 01/03/22 05:57 Labs: Laboratory Results - last 24 hr 12/31/21 01/01/22 01/01/22 05:20 05:23 05:23 WBC 7.5 RBC 2.90 L Hgb 8.5 L Hct 24.2 L MCV 83.4 MCH 29.3 MCHC 35.1 RDW 12.0 Plt Count 220 MPV 9.0 L Immature Gran % (Auto) 0.1 Neut % (Auto) 58.5 Lymph % (Auto) 23.0 [place] % (Auto) 8.4 Eos % (Auto) 9.3 H Baso % (Auto) 0.7 Lymph # (Auto) 1.7 [place] # (Auto) 0.6 Eos # (Auto) 0.7 H Baso # (Auto) 0.1 Abs Immat Gran (auto) 0.01 Absolute Neuts (auto) 4.4 Absolute Nucleated RBC 0.000 Nucleated RBC % (auto) 0.0 Sodium 142 Potassium 3.3 Chloride 108 Carbon Dioxide 28 Anion Gap 9 L BUN 13 Creatinine 2.13 H Estim Creat Clear Calc 64.7 Estimated GFR 36 Fasting Glucose 86 Calcium 9.7 D Total Bilirubin 0.3 AST 26 ALT 32 Alkaline Phosphatase 42 C-Reactive Protein 2.50 H Total Protein 5.6 L Albumin 3.5 PTH Intact 16 Calcium (PTH Intact) 10.2 Microbiology Microbiology Results: Microbiology 12/28/21 21:13 Blood - Venous Blood Culture - Preliminary No growth after 48 hours. 12/28/21 20:34 Blood - Venous Blood Culture - Preliminary No growth after 48 hours. Procedures Date of Service Date of Service: 01/01/22 Assessment & Plan Assessment and plan (1) Hypercalcemia: Status: Acute (2) ROSCOE (acute kidney injury): Status: Acute (3) Rhabdomyolysis: Status: Acute Plan ROSCOE Most likely due to hypoperfusion from volume depletion and continued used of NSAIDS Hypercalcemia might be a contributing factor Possible pigment nephropathy Hypercalcemia Likely from due to excessive Ca intake Low urine SG may be due to hypercalcemia induced nephrogenic DI Anemia Suggest DC TUMS DC NSAIDS - done continue IV hydration with NS Check SPEP/UPEP/PTH - pending Avoid hypotension Watch K and phos Time Spent With Patient Time: Total time spent is greater than 50% in coordination of care (as documented) at patient's floor/unit and/or counseling patient: Progress Note: Quality Stroke Does the patient have a stroke diagnosis?: No
[2022-01-01 23:31] VITALS: PULSE 82; RESP 16; TEMP 36.3
[2022-01-01 23:40] VITALS: BP 170/80
[2022-01-02] MEDS: Morphine Sulfate 4 MG/ML CARTRIDGE IVPUSH ×2 (00:27→13:16)
[2022-01-02] MEDS: Enoxaparin Sodium 40 MG/0.4 ML SYRINGE SUBCUT (00:28)
[2022-01-02] MEDS: Butalb/Acetamin/Caff 50/325/40 TABLET 1 TAB PO ×2 (00:28→09:42)
[2022-01-02] MEDS: ondansetron HCL 4 MG/2 ML VIAL IVPUSH (00:33)
[2022-01-02] MEDS: Piperacillin Sodium/Tazobactam 3.375 GM in 0.9 % Sodium Chloride 50 ML IV ×4 (01:19→20:09)
[2022-01-02] MEDS: 0.9 % Sodium Chloride 1,000 ML 125 ML IVCONT (04:42)
[2022-01-02] MEDS: Omeprazole 40 MG CAPSULE.DR PO (06:24)
[2022-01-02] MEDS: Acetaminophen 325 MG TABLET 650 MG PO (06:28)
[2022-01-02 07:04] LABS: Anion Gap 11 (12-20); Blood Urea Nitrogen 10 mg/dL (9-16); C Reactive Protein 1.57 mg/dL (< or = 0.50); Calcium 9.4 mg/dL (8.4-10.2); Carbon Dioxide 26 mmol/L (22-29); Chloride 109 mmol/L (96-108); Creatinine Clr Calc Pharmacy 71.4; Estimated Glomerular Filt Rate 41; Glucose Random 88 mg/dL (60-115); Potassium 3.1 mmol/L (3.3-5.1); Sodium 143 mmol/L (135-145)
[2022-01-02] MEDS: Dicyclomine HCl 10 MG CAPSULE 20 MG PO ×4 (07:39→20:09)
[2022-01-02] MEDS: Nystatin Oral Susp 500,000 UNIT/5 ML ORAL.SUSP 500000 UNIT PO ×4 (07:39→20:09)
[2022-01-02 08:00] VITALS: BP 173/93; PULSE 75; RESP 17; TEMP 36.4; O2SAT 98
[2022-01-02] MEDS: Potassium Chloride/H20 10 MEQ/100 ML PIGGYBACK 100 MEQ IV ×2 (08:44→09:42)
--- NOTE | 2022-01-02 09:47 | PM.PNNEP ---
Subjective Subjective Date of Service: 01/02/22 Interval history: Feels better Still has some vomiting Physical Exam Vital Signs: Vital Signs: Last Vital Signs Temp 97.6 F 01/02/22 08:00 Pulse 75 01/02/22 08:00 Resp 17 01/02/22 08:00 BP 173/93 H 01/02/22 08:00 Pulse Ox 98 01/02/22 08:00 BMI result Body Mass Index 33.9 Const: General: alert and awake Orientation/consciousness: oriented to person and oriented to place Eyes: General: appearance normal, both eyes and all related structures Pupils: Equal, round and reactive pupils present Neck: Neck: Yes normal visual inspection Chest: Chest palpation & inspection: normal palpation of entire chest wall Resp: Effort & Inspection: normal respiratory effort, able to speak in complete sentences and symmetric chest movement Auscultation: no crackles Cardio: Jugular venous distension: no JVD Palpation: no palpable S3 Heart sounds: no murmurs and no rubs GI: Inspection: Yes normal to inspection Palpation (GI): Soft to palpation and nontender : General: Yes no CVA tenderness Back/Spine/Pelvis: Back: no CVA tenderness Skin: General skin exam: no rashes or lesions noted Neuro: General: oriented to person and oriented to place Cranial nerves: Yes Equal, round and reactive pupils present and No Normal hearing present Motor exam (neuro): no asterixis Objective Data Labs CBC & Chem 7: 01/01/22 05:23 01/02/22 05:58 Labs: Laboratory Results - last 24 hr 12/31/21 01/01/22 01/02/22 05:20 05:23 05:58 Sodium 143 Potassium 3.1 L Chloride 109 H Carbon Dioxide 26 Anion Gap 11 L BUN 10 Creatinine 1.93 H Estim Creat Clear Calc 71.4 Estimated GFR 41 Random Glucose 88 Calcium 9.4 Total Creatine Kinase 451 H D C-Reactive Protein 2.50 H 1.57 H PTH Intact 16 Calcium (PTH Intact) 10.2 Microbiology Microbiology Results: Microbiology 12/28/21 21:13 Blood - Venous Blood Culture - Preliminary No growth after 48 hours. 12/28/21 20:34 Blood - Venous Blood Culture - Preliminary No growth after 48 hours. Procedures Date of Service Date of Service: 01/02/22 Assessment & Plan Assessment and plan (1) Hypercalcemia: Status: Acute (2) ROSCOE (acute kidney injury): Status: Acute (3) Rhabdomyolysis: Status: Acute Plan ROSCOE Most likely due to hypoperfusion from volume depletion and continued used of NSAIDS Hypercalcemia might be a contributing factor Possible pigment nephropathy Hypercalcemia Likely from due to excessive Ca intake Appropriately suppressed PTH SPEP/UPEP pending Low urine SG may be due to hypercalcemia induced nephrogenic DI Anemia Suggest DC TUMS DC NSAIDS - done continue IV hydration with NS for 1 more days until PO intake is OK SPEP/UPEP/PTH - pending Avoid hypotension Watch K and phos Time Spent With Patient Time: Total time spent is greater than 50% in coordination of care (as documented) at patient's floor/unit and/or counseling patient: Progress Note: Quality Stroke Does the patient have a stroke diagnosis?: No
--- NOTE | 2022-01-02 10:46 | HO.PM.IMPN ---
Subjective Subjective Date of Service: 01/02/22 Interval History: Some dry heaving overnight but no actual vomitus. Feels better this AM. Tolerating CLD. Minimal abd pain. Review of Systems Review of Systems: Yes all other systems are reviewed and are negative Physical Exam Vital Signs: Vital Signs: Last Vital Signs Temp 97.6 F 01/02/22 08:00 Pulse 75 01/02/22 08:00 Resp 17 01/02/22 08:00 BP 173/93 H 01/02/22 08:00 Pulse Ox 98 01/02/22 08:00 BMI result Body Mass Index 33.9 Gen: in no acute distress HEENT: sclera anicteric, moist mucus membranes Neck: supple Lungs: clear to auscultation bilaterally Heart: regular rate and rhythm, no murmurs Abd: soft, minimal tenderness Ext: no edema Skin: warm/well-perfused Neuro: alert and oriented x3, no focal findings Psych: appropriate affect Objective Data Active Medications Acetaminophen (Acetaminophen 325 Mg Tablet) 650 mg PO Q6H PRN PRN Reason: Pain, Mild (Pain Scale 1-3) Last Admin: 01/02/22 06:28 Dose: 650 mg Documented by: BRANDI Acetaminophen/Butalbital/Caffeine (Butalb/Acetamin/Caff 50/325/40 Tablet) 1 tab PO Q4H PRN PRN Reason: amezcua Last Admin: 01/02/22 09:42 Dose: 1 tab Documented by: MARYCRUZ Calcium Carbonate (Calcium Carbonate 500 Mg Tablet) 250 mg PO QID PRN PRN Reason: Heartburn Dicyclomine HCl (Dicyclomine Hcl 10 Mg Capsule) 20 mg PO QIDACHS [facility] Last Admin: 01/02/22 07:39 Dose: 20 mg Documented by: MARYCRUZ Diphenhydramine HCl (Diphenhydramine Hcl 25 Mg Tablet) 25 mg PO TID PRN PRN Reason: allergies Last Admin: 12/31/21 02:20 Dose: 25 mg Documented by: RUBEN Docusate Sodium (Docusate Sodium 100 Mg Capsule) 100 mg PO DAILY PRN PRN Reason: Constipation Enoxaparin Sodium (Enoxaparin Sodium 40 Mg/0.4 Ml Syringe) 40 mg SUBCUT Q24H [facility] Last Admin: 01/02/22 00:28 Dose: 40 mg Documented by: BRANDI Piperacillin Sod/Tazobactam (Sod 3.375 gm/ Sodium Chloride) 50 mls @ 100 mls/hr IV Q6H [facility] Last Infusion: 01/02/22 08:12 Dose: 0 mls/hr Documented by: MARYCRUZ Sodium Chloride (Ns) 1,000 mls @ 125 mls/hr IVCONT .Q8H [facility] Last Admin: 01/02/22 04:42 Dose: 125 mls/hr Documented by: BRANDI Morphine Sulfate (Morphine Sulfate 4 Mg/Ml Cartridge) 4 mg IVPUSH Q4H PRN; Protocol PRN Reason: Pain, Severe (Pain Scale 7-10) Last Admin: 01/02/22 00:27 Dose: 4 mg Documented by: BRANDI Nicotine Polacrilex (Nicotine Polacrilex 2 Mg Gum) 2 mg BUCCAL Q2H PRN PRN Reason: Nicotine Cravings Last Admin: 12/29/21 16:21 Dose: 2 mg Documented by: COTEMA Nystatin (Nystatin Oral Susp 500,000 Unit/5 Ml Oral.Susp) 500,000 unit PO QID [facility]; Protocol Last Admin: 01/02/22 07:39 Dose: 500,000 unit Documented by: MARYCRUZ Omeprazole (Omeprazole 40 Mg Capsule.Dr) 40 mg PO DAILY@0630 [facility] Last Admin: 01/02/22 06:24 Dose: 40 mg Documented by: BRANDI Ondansetron HCl (Ondansetron Hcl 4 Mg/2 Ml Vial) 4 mg IVPUSH Q8H PRN PRN Reason: Nausea and Vomiting Last Admin: 01/02/22 00:33 Dose: 4 mg Documented by: BRANDI Oxycodone HCl (Oxycodone Hcl Immed Release 5 Mg Tablet) 5 mg PO Q4H PRN PRN Reason: moderate-sev pain Last Admin: 12/30/21 15:47 Dose: 5 mg Documented by: MALKA Pharmacy Consult (Consult Rx Perform Med Rec) 1 each MISCELLANE ONCE PRN PRN Reason: Consult order Sodium Chloride (0.9 % Sodium Chloride Flush 3 Ml Syringe) 3 ml IVFLUSH QSHIFT [facility] Last Admin: 01/02/22 07:40 Dose: Not Given Documented by: MARYCRUZ Non-Admin Reason: IV Running Labs CBC & Chem 7: 01/01/22 05:23 01/02/22 05:58 Labs: Laboratory Results - last 24 hr 12/31/21 01/01/22 01/02/22 05:20 05:23 05:58 Anion Gap 11 L Estim Creat Clear Calc 71.4 Estimated GFR 41 Random Glucose 88 Calcium 9.4 Total Creatine Kinase 451 H D C-Reactive Protein 2.50 H 1.57 H PTH Intact 16 Calcium (PTH Intact) 10.2 Assessment and Plan (1) Diverticulitis: Status: Acute (2) ROSCOE (acute kidney injury): Status: Acute (3) Rhabdomyolysis: Status: Acute Plan hospital d#5 31yo M admitted with acute diverticulitis, ROSCOE, and rhabdomyolysis # acute diverticulitis - continue IV fluid hydration, continue pip/francisco javier d#5, outpt GI f/u for colonoscopy, advance diet to solids today # prerenal ROSCOE - improving with IV fluid hydration, recheck BMP in AM # rhabdomyolysis - improved with IV fluid hydration # hyperCa - resolved with IV fluid hydration, 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 Possible d/c home tomorrow Quality Stroke Does the patient have a stroke diagnosis?: No VTE Prior VTE?: No VTE Risk Level:: Medical - moderate - high VTE Device Contraindication: Treatment Not Indicated VTE Drug Contraindication: N/A - Med Ordered
--- NOTE | 2022-01-02 10:58 | PM.GIPN ---
Subjective Subjective Date of Service: 01/02/22 Interval History: intestinal discomfort better on dicyclomine starting lo residue diet for lunch Critical Care Time (minutes): 0 Physical Exam Vital Signs: Vital Signs: Last Vital Signs Temp 97.6 F 01/02/22 08:00 Pulse 75 01/02/22 08:00 Resp 17 01/02/22 08:00 BP 173/93 H 01/02/22 08:00 Pulse Ox 98 01/02/22 08:00 BMI result Body Mass Index 33.9 GI: Other: abdomen is soft and nontender Objective Data Labs CBC & Chem 7: 01/01/22 05:23 01/02/22 05:58 Procedures Date of Service Date of Service: 01/02/22 Progress Note: A&P Assessment and plan (1) Diverticulitis: Status: Acute Assessment and Plan: doing well discussed lo residue diet with patient my office will arrange outpt colonoscopy in 8-12 weeks Time Spent With Patient Time: Total time spent is greater than 50% in coordination of care (as documented) at patient's floor/unit and/or counseling patient: Quality Stroke Does the patient have a stroke diagnosis?: No VTE Prior VTE?: No VTE Risk Level:: Medical - moderate - high VTE Device Contraindication: Treatment Not Indicated VTE Drug Contraindication: N/A - Med Ordered
[2022-01-02 15:28] VITALS: BP 164/78; PULSE 74; RESP 18; TEMP 37.1; O2SAT 97
[2022-01-02] MEDS: 0.9 % Sodium Chloride Flush 3 ML SYRINGE IVFLUSH (20:10)
--- NOTE | 2022-01-02 20:26 | PM.EVENT ---
Event Note Date of Service: 01/02/22 Event Note: HTN urgency: started Amlodipine;' pt mildly anxious; otherwise asymptomatic. renal duplex
[2022-01-02 20:27] VITALS: BP 192/86; PULSE 76; RESP 20; TEMP 36.9; O2SAT 99
[2022-01-02] MEDS: hydrOXYzine HCL 25 MG TABLET PO (20:41)
[2022-01-02] MEDS: amLODIPine Besylate 5 MG TABLET PO (20:41)
[2022-01-02 22:11] VITALS: BP 184/88
[2022-01-02 23:44] VITALS: BP 175/101; PULSE 86; RESP 19; TEMP 36.8; O2SAT 95
[2022-01-03 01:03] VITALS: BP 181/103
[2022-01-03] MEDS: Enoxaparin Sodium 40 MG/0.4 ML SYRINGE SUBCUT (01:14)
[2022-01-03] MEDS: Piperacillin Sodium/Tazobactam 3.375 GM in 0.9 % Sodium Chloride 50 ML IV ×2 (01:16→07:59)
[2022-01-03] MEDS: amLODIPine Besylate 5 MG TABLET PO ×2 (01:25→09:50)
--- NOTE | 2022-01-03 01:42 | PC.NURSE ---
Addendum entered by Ines Hutchison RN 01/03/22 01:50: Dr. Ambrosio suggested to give pt benadryl for anxiety. Original Note: Around 2009, pt c/o of anxiety and numbness and tingling in jaw and face, BP elevated at 192/86. Text sent to Dr. Ambrosio, amlodipine and atarax ordered and administered. BP at 2335 was 174/[address] Re-checked BP at 0105 for 180/102. ordered another dose of amlodipine, med given. Pt also c/o anxiety again but did not want another dose of atarax, stated it did not help and made him feel foggy. made aware. Benadryl ordered m
[2022-01-03] MEDS: diphenhydrAMINE HCL 25 MG TABLET PO (01:56)
[2022-01-03] MEDS: oxyCODONE HCl Immed Release 5 MG TABLET PO (02:00)
[2022-01-03 03:22] VITALS: BP 162/100; PULSE 86; RESP 19; TEMP 36.6; O2SAT 93
[2022-01-03] MEDS: Omeprazole 40 MG CAPSULE.DR PO (05:54)
[2022-01-03 06:45] LABS: Anion Gap 10 (12-20); Blood Urea Nitrogen 12 mg/dL (9-16); Calcium 9.8 mg/dL (8.4-10.2); Carbon Dioxide 25 mmol/L (22-29); Chloride 112 mmol/L (96-108); Creatinine Clr Calc Pharmacy 74.9; Estimated Glomerular Filt Rate 43; Glucose Random 85 mg/dL (60-115); Potassium 3.2 mmol/L (3.3-5.1); Sodium 144 mmol/L (135-145)
[2022-01-03 07:46] VITALS: BP 160/100; PULSE 78; RESP 18; TEMP 36.8; O2SAT 94
[2022-01-03] MEDS: Dicyclomine HCl 10 MG CAPSULE 20 MG PO (07:58)
[2022-01-03] MEDS: 0.9 % Sodium Chloride Flush 3 ML SYRINGE IVFLUSH (07:58)
[2022-01-03] MEDS: Potassium Chloride ER 20 MEQ TAB.ER.PRT 40 MEQ PO (07:58)
[2022-01-03] MEDS: Butalb/Acetamin/Caff 50/325/40 TABLET 1 TAB PO (08:03)
[2022-01-03] MEDS: Nystatin Oral Susp 500,000 UNIT/5 ML ORAL.SUSP 500000 UNIT PO (09:50)
--- NOTE | 2022-01-03 10:19 | PM.DS ---
DS: Providers Provider Date of Service: 01/03/22 Date of admission: 12/29/21 00:04 Date of discharge: 01/03/22 Primary care physician: JENNY Small Consults: 12/30/21 07:52 Consult to Nephrology Routine Consulting Provider: Santiago Heard Reason for consultation: ROSCOE Has provider been notified: No 12/30/21 09:25 Consult to Gastroenterology Routine Consulting Provider: Sanket Hendrix Reason for consultation: diverticulitis Has provider been notified: Yes DS: Diagnosis Discharge Diagnosis (1) Diverticulitis: Status: Acute (2) ROSCOE (acute kidney injury): Status: Acute (3) Acute hypokalemia: Status: Acute (4) Hypercalcemia: Status: Acute (5) High blood pressure: Status: Acute (6) Rhabdomyolysis: Status: Acute (7) Tobacco abuse: Status: Acute (8) Anemia: Status: Acute DS: Summary Hospital Course Hospital Course: from admission H+P by hospitalist Taran Ramos MD, 12/29/21: 31-year-old male with past medical history of nephrolithiasis, history of gynecomastia status post surgical excision, presents to the hospital with complaints of right lower abdominal pain.? Patient reports that he has had history of diverticulitis, but has been struggling with this abdominal pain for the past 6 months that worsened over the last 10 days.? The pain is localized to the right lower abdomen, 9/10, constant, radiating across the abdomen to the left.? No alleviating or exacerbating factors.? 4 days of nausea and vomiting.? He reports that every time he tries to eat anything he throws up right away.? He has been feeling significantly dehydrated, and reports inability to keep any p.o. down.? He denies any fever no chills, no diarrhea constipation, no chest pain, no shortness of breath, reports urinary frequency for the past 3 days, no lower extremity edema.? No weakness numbness or tingling. On arrival to the ED patient hemodynamically stable with a slightly elevated blood pressure otherwise stable Labs are noted to be significant for WBC count of 12.0, hemoglobin of 10.0, hematocrit 27.8, creatinine of 3.45 with a baseline of around 1.1, BUN of 40, calcium level of 12.9, AST of 75, ALT of 61, CPK of 2094, UA positive for leukocyte Estrace as well as trace WBC CT abdomen shows acute uncomplicated distal descending colonic diverticulitis. Patient started on IV antibiotics, IV fluids and will be admitted for further management This 31yo M was admitted with acute diverticulitis, ROSCOE, and rhabdomyolysis. He was seen by GI and improved with IV piperacillin/tazobactam, IV fluids, and bowel rest. His diet was gradually advanced and he was prescribed amoxicillin/clavulanate upon discharge. Prerenal ROSCOE and rhabdomyolysis improved with IV hydration; he will need repeat BMP in 1 week. 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 For mild hypokalemia and anemia, potassium- and iron-rich foods were encouraged and in addition to repeating BMP in 1 week, CBCd should be repeated in 1 month. He was prescribed NRT for smoking cessation and should follow up with Primary Care in 1 week and Gastroenterology in 2 week. Outpatient colonoscopy will be arranged. Time Spent with Patient Time attestation: Total time spent providing and/or coordinating discharge services: Discharge coordination time: Greater than 30 minutes Quality: Safe Use of Opioids Does Pt have an Active Cancer Diagnosis on the Problem List?: No Quality: Stroke Does the patient have a stroke diagnosis?: No Physical Exam Vital Signs: Vital Signs: Last Vital Signs Temp 98.2 F 01/03/22 07:46 Pulse 78 01/03/22 07:46 Resp 18 01/03/22 07:46 BP 160/100 H 01/03/22 07:46 Pulse Ox 94 01/03/22 07:46 BMI result Body Mass Index 33.9 Gen: in no acute distress HEENT: sclera anicteric, moist mucus membranes Neck: supple Lungs: clear to auscultation bilaterally Heart: regular rate and rhythm, no murmurs Abd: soft, nontender, normal bowel sounds Ext: no edema Skin: warm/well-perfused Neuro: alert and oriented x3, no focal findings Psych: appropriate affect DS: Data Data Completed and Pending Completed studies during hospitalization [Text1]: Laboratory Results WBC 7.5 X10*3/uL (4.8-10.8) 01/01/22 05:23 RBC 2.90 X10*6/uL (4.60-5.80) L 01/01/22 05:23 Hgb 8.5 g/dl (14.0-18.0) L 01/01/22 05:23 Hct 24.2 % (42.0-52.0) L 01/01/22 05:23 MCV 83.4 fL (80.0-98.0) 01/01/22 05:23 MCH 29.3 pg (27.0-33.0) 01/01/22 05:23 MCHC 35.1 g/dl (31.0-36.0) 01/01/22 05:23 RDW 12.0 % (11.0-16.0) 01/01/22 05:23 Plt Count 220 X10*3/uL (160-400) 01/01/22 05:23 MPV 9.0 fL (9.4-12.4) L 01/01/22 05:23 Immature Gran % (Auto) 0.1 % (0.0-0.4) 01/01/22 05:23 Neut % (Auto) 58.5 % (45-73) 01/01/22 05:23 Lymph % (Auto) 23.0 % (20-40) 01/01/22 05:23 [place] % (Auto) 8.4 % (2-11) 01/01/22 05:23 Eos % (Auto) 9.3 % (0-4) H 01/01/22 05:23 Baso % (Auto) 0.7 % (0-2) 01/01/22 05:23 Lymph # (Auto) 1.7 X10*3/uL (1.2-4.9) 01/01/22 05:23 [place] # (Auto) 0.6 X10*3/uL (0.1-1.2) 01/01/22 05:23 Eos # (Auto) 0.7 X10*3/uL (0.0-0.4) H 01/01/22 05:23 Baso # (Auto) 0.1 X10*3/uL (0.0-0.2) 01/01/22 05:23 Abs Immat Gran (auto) 0.01 X10*3/uL (0.00-0.03) 01/01/22 05:23 Absolute Neuts (auto) 4.4 x10*3/uL (2.0-8.3) 01/01/22 05:23 Absolute Nucleated RBC 0.000 X10*3/uL (0.0-0.012) 01/01/22 05:23 Nucleated RBC % (auto) 0.0 /100WBC (0.0-0.2) 01/01/22 05:23 Sodium 144 mmol/L (135-145) 01/03/22 05:57 Potassium 3.2 mmol/L (3.3-5.1) L 01/03/22 05:57 Chloride 112 mmol/L (96-108) H 01/03/22 05:57 Carbon Dioxide 25 mmol/L (22-29) 01/03/22 05:57 Anion Gap 10 (12-20) L 01/03/22 05:57 BUN 12 mg/dL (9-16) 01/03/22 05:57 Creatinine 1.84 mg/dL (0.5-1.4) H 01/03/22 05:57 Estim Creat Clear Calc 74.9 01/03/22 05:57 Estimated GFR 43 01/03/22 05:57 Random Glucose 85 mg/dL (60-115) 01/03/22 05:57 Fasting Glucose 86 mg/dL (60-99) 01/01/22 05:23 Lactic Acid 0.7 mmol/L (0.5-2.0) 12/28/21 20:34 Calcium 9.8 mg/dL (8.4-10.2) 01/03/22 05:57 Total Bilirubin 0.3 mg/dL (0.0-1.0) 01/01/22 05:23 Direct Bilirubin < 0.2 mg/dL (0.0-0.5) 12/28/21 18:06 AST 26 U/L (5-37) 01/01/22 05:23 ALT 32 U/L (0-40) 01/01/22 05:23 Alkaline Phosphatase 42 U/L (39-117) 01/01/22 05:23 Total Creatine Kinase 451 U/L (38-174) H D 01/02/22 05:58 C-Reactive Protein 1.57 mg/dL (< or = 0.50) H 01/02/22 05:58 Total Protein 5.6 g/dL (6.5-8.0) L 01/01/22 05:23 Albumin 3.5 g/dL (3.5-5.0) 01/01/22 05:23 Lipase 24 U/L (8-78) 12/28/21 18:06 PTH Intact 16 pg/mL (16-77) 12/31/21 05:20 Calcium (PTH Intact) 10.2 mg/dL (8.6-10.3) 12/31/21 05:20 Urine Color YELLOW 12/28/21 22:14 Urine Appearance CLEAR 12/28/21 22:14 Urine pH 7.0 (5.0-8.0) 12/28/21 22:14 Ur Specific [place] <= 1.005 (1.005-1.025) 12/28/21 22:14 Urine Protein NEG MG/DL (NEG-TRACE) 12/28/21 22:14 Urine Glucose (UA) NEG MG/DL (NEG) 12/28/21 22:14 Urine Ketones NEG MG/DL (NEG) 12/28/21 22:14 Urine Blood 1+ (NEG) H 12/28/21 22:14 Urine Nitrite NEG (NEG) 12/28/21 22:14 Ur Leukocyte Esterase TRACE (NEG) H 12/28/21 22:14 Urine RBC 0-2 /HPF (0) 12/28/21 22:14 Urine WBC 0-2 /HPF (0-4) 12/28/21 22:14 Ur Squamous Epith Cells TRACE /LPF 12/28/21 22:14 Urine Bacteria TRACE /LPF 12/28/21 22:14 U Random Total Protein 26 mg/dL (<12) H 12/30/21 22:40 COVID-19 (ARSALAN) Negative (Negative) 12/28/21 20:34 COVID-19 Clin Com See Note 12/28/21 20:34 Impressions Abdomen/Pelvis CT 12/28/21 21:18 IMPRESSION: Acute uncomplicated distal descending colonic diverticulitis. No evidence of appendicitis. KUB X-Ray 12/29/21 06:51 IMPRESSION: Unremarkable appearance of the abdomen. Head CT 01/03/22 00:00 IMPRESSION: *No acute intercranial abnormalities. Renal Ultrasound 01/03/22 08:50 IMPRESSION: Normal size kidneys. Small left renal cyst. Normal right renal artery. Slightly elevated peak systolic velocity in the left mid renal artery. No visible stenosis is appreciated. Appearance is questionable for less than 60% left renal artery stenosis. Discharge Plan Discharge Patient Disposition: Home, Self-Care Discharge Diagnosis: diverticulitis, acute kidney injury, rhabdomyolysis, hypokalemia, hypercalcemia, GERD, anemia, elevated blood pressure without diagnosis of hypertension, tobacco abuse Referrals: Sanket Hendrix [Physician] - 2 Weeks Ignacio Joy FNP- [Primary Care Provider] - 1 Week Discharge Medications: New nicotine (polacrilex) 2 mg Gum 2 mg buccal Q2H PRN (Reason: Nicotine Cravings) Qty: 100 0RF omeprazole 40 mg Capsule,Delayed Release(Dr/Ec) 40 mg PO DAILY@0630 Qty: 30 0RF fcmgyzzkbq-oyycrghzlkwxl-cjtz 50-325-40 mg Tablet 1 tab PO Q4H PRN (Reason: amezcua) Qty: 12 0RF dicyclomine 10 mg Capsule 20 mg PO QIDACHS Qty: 120 0RF amoxicillin-pot clavulanate 875-125 mg tablet 1 tab PO BID Qty: 6 0RF Continued nystatin 100,000 unit/mL suspension 5 ml PO QID 0RF Rx Instructions: swish and spit pantoprazole 40 mg tablet,delayed release (DR/EC) 1 tab PO DAILY 0RF acetaminophen 500 mg Tablet 500 mg PO Q6H PRN (Reason: Pain) 0RF diphenhydramine HCl [Benadryl] 25 mg Capsule 25 mg PO TID PRN (Reason: allergies) 0RF calcium carbonate [Tums] 200 mg calcium (500 mg) Tablet,Chewable 200 mg PO QID PRN (Reason: Heartburn) 0RF Discontinued nitrofurantoin monohyd/m-cryst 100 mg capsule 1 cap PO BID 0RF ibuprofen 600 mg Tablet 600 mg PO Q6H PRN (Reason: Pain) 0RF Discharge Orders: Discharge Order (Routine); Ordered 01/03/22 Ordered By: Isaak Bueno Diet: advance to usual diet Activity on Discharge: As tolerated Stand Alone Forms: Patient Portal Discharge page, Work/School Release Other Ambulatory Orders: Basic Metabolic Panel (Routine) Timeframe: 1 Week Facility: [facility] - Location: Laboratory Ordered By: Isaak Bueno Complete Blood Count Auto Diff (Routine) Timeframe: 1 Month Facility: [facility] - Location: Laboratory Ordered By: Isaak Bueno Care Plan Goals: recovery from diverticulitis normal kidney function smoking cessation Health Concerns: diverticulitis, acute kidney injury, rhabdomyolysis, hypokalemia, hypercalcemia, GERD, anemia, elevated blood pressure without diagnosis of hypertension, tobacco abuse Plan of Treatment: diverticulitis: bland diet, advance as tolerated acute kidney injury: avoid NSAIDs, drink plenty of fluids, recheck BMP in 1 week rhabdomyolysis: drink plenty of fluids, recheck BMP in 1 week hypokalemia: eat bananas, recheck BMP in 1 week hypercalcemia: stop using TUMS GERD: use omeprazole instead of TUMS anemia: eat iron-rich foods, recheck CBC in 1 week elevated blood pressure: check at home, follow up with primary care provider in 1 week tobacco abuse: nicotine replacement to stop smoking Assessment: See Discharge Summary Patient Instructions: Diverticulitis (DC)
--- NOTE | 2022-01-03 10:35 | MHC.CM.PN ---
NURSE CARE TECHNICIAN NOTE ELECTRONICMEDICAL RECORD REVIEWESD MAYA WITH CASE DISCUSSED WITH STAFF NURSE AND PATIENT . HE WILL BE DISCHARGED HOME TODAY AND HE IS AWARE OF THIS DISCHARGE PLAN HOME NO SERVICES TRANSPORTATION FAMILY FOLLOW UP WITH DR DUEÑAS FOR FUTURE EGD/COLONOSCOPY OUTPATIEN PCP ELISEO HUI HAS FIRST SCHEDULED APPOINTMENT NEW PT FOR APRIL 2022 CASE MANAGEMENT OFFICE TO CALL FOR [facility] DISCHARGE FOLLOW UP FOR APPOINTMENT
[2022-01-03 10:57] LABS: PEU-Protein Creat Ratio Rand 0.479 (0.022-0.128); PEU-Rand. Prot/Creat Ratio 479 mg/g creat (22-128); PEU-Random Ur. Gamma Globulin 11 %; PEU-Random Urine A1 Globulin 7 %; PEU-Random Urine A2 Globulin 20 %; PEU-Random Urine Albumin 45 %; PEU-Random Urine Beta Globulin 17 %; PEU-Random Urine Creatinine 73 mg/dL (20-320); PEU-Random Urine Protein 35 mg/dL (5-25)
[2022-01-06 23:20] LABS: Prot Elec - Albumin 3.2 g/dL (3.8-4.8); Prot Elec - Alpha1 0.4 g/dL (0.2-0.3); Prot Elec - Alpha2 0.8 g/dL (0.5-0.9); Prot Elec - Beta 1 0.4 g/dL (0.4-0.6); Prot Elec - Beta 2 0.3 g/dL (0.2-0.5); Prot Elec - Gamma 0.5 g/dL (0.8-1.7); Prot Elec - Total Protein 5.5 g/dL (6.1-8.1)
== END 2022-01-03 11:23 | disposition home or self-care (01) | DRG 683 ==
LOC: HO.ED 22:09 → HO.EDOVER 12-29 00:13 → HO.S3 12-29 13:42
PROVIDERS: Hospitalist; Internal Medicine Hypertension Specialist; Physician Assistant Medical; Admitting Provider Internal Medicine; Emergency Provider Emergency Medicine Emergency Medical Services; PCP Nurse Practitioner Family; Visit Provider Family Medicine
DX: N17.9 Acute kidney failure, unspecified (principal); M62.82 Rhabdomyolysis; K57.32 Diverticulitis of large intestine without perforation or abscess without bleeding; N39.0 Urinary tract infection, site not specified; N14.1 Nephropathy induced by other drugs, medicaments and biological substances; E86.0 Dehydration; E83.52 Hypercalcemia; I16.0 Hypertensive urgency; I10 Essential (primary) hypertension; T47.1X5A Adverse effect of other antacids and anti-gastric-secretion drugs, initial encounter; K21.9 Gastro-esophageal reflux disease without esophagitis; Z20.822 Contact with and (suspected) exposure to COVID-19; E87.6 Hypokalemia; F17.210 Nicotine dependence, cigarettes, uncomplicated; Z71.6 Tobacco abuse counseling; Z87.442 Personal history of urinary calculi; Z79.899 Other long term (current) drug therapy
CPT/HCPCS: 36415; 70450; 74018; 74176; 76775; 80048; 80053; 80076; 81001; 82550; 82570; 83605; 83690; 83970; 84156; 84165; 84166; 85025; 86140; 87040; 87635; 93005; 93975; 96361; 96365; 96375; 96376; 99285; 99291; J0696; J1170; J1650; J2270; J2405; J2543; J2550; Q0163

== ENCOUNTER 2022-01-21 12:10 | Outpatient (REF) | payer OTHER, SELFPAY ==
[2022-01-21 14:06] LABS: Alanine Aminotransferase 33 U/L (0-40); Albumin Level 4.4 g/dL (3.5-5.0); Alkaline Phosphatase 69 U/L (39-117); Anion Gap 11 (12-20); Aspartate Amino Transferase 25 U/L (5-37); Bilirubin Total 0.4 mg/dL (0.0-1.0); Blood Urea Nitrogen 14 mg/dL (9-16); Calcium 10.6 mg/dL (8.4-10.2); Carbon Dioxide 25 mmol/L (22-29); Chloride 108 mmol/L (96-108); Estimated Glomerular Filt Rate 59; Glucose Random 95 mg/dL (60-115); Iron 58 mcg/dL (45-160); Percent Iron Saturation 16 % (15-50); Potassium 4.7 mmol/L (3.3-5.1); Sodium 139 mmol/L (135-145); Total Iron Binding Capacity 367 mcg/dL (228-428); Total Protein 7.1 g/dL (6.5-8.0); Unsaturated Iron Binding 309 ug/dL
[2022-01-21 14:10] LABS: Ferritin 167 ng/mL (20-250); TSH reflex Free T4 0.69 uIU/mL (0.32-4.0); Vitamin D 25-OH Total 26.5 ng/mL (>30)
[2022-01-22 13:08] LABS: Folate 9.7 ng/mL (> or = 4.0); Vitamin B12 1091 pg/mL (200-900)
== END 2022-01-21 12:11 | disposition home or self-care (01) ==
LOC: HO.LAB 12:10
PROVIDERS: PCP Nurse Practitioner Family; Visit Provider Nurse Practitioner Family
DX: Z13.29 Encounter for screening for other suspected endocrine disorder (principal); K57.92 Diverticulitis of intestine, part unspecified, without perforation or abscess without bleeding; D64.9 Anemia, unspecified; N17.9 Acute kidney failure, unspecified
CPT/HCPCS: 36415; 80053; 82306; 82550; 82607; 82728; 82746; 83540; 84443

== ENCOUNTER 2022-02-04 11:50 | Outpatient (REF) | payer OTHER, SELFPAY ==
[2022-02-04 13:39] LABS: MANUAL DIFF FLAG NO
[2022-02-04 13:41] LABS: Basophils Absolute Auto 0.1 X10*3/uL (0.0-0.2); Basophils Percent Auto 0.8 % (0-2); Eosinophils Absolute Auto 0.4 X10*3/uL (0.0-0.4); Eosinophils Percent Auto 6.1 % (0-4); Hematocrit 37.8 % (42.0-52.0); Hemoglobin 12.9 g/dl (14.0-18.0); Imm Gran Abs Auto 0.02 X10*3/uL (0.00-0.03); Imm Gran Pct Auto 0.3 % (0.0-0.4); Lymphocytes Absolute Auto 2.4 X10*3/uL (1.2-4.9); Lymphocytes Percent Auto 37.8 % (20-40); Mean Corpuscular HGB Conc 34.1 g/dl (31.0-36.0); Mean Corpuscular Hemoglobin 29.7 pg (27.0-33.0); Mean Corpuscular Volume 86.9 fL (80.0-98.0); Mean Platelet Volume 9.3 fL (9.4-12.4); Monocytes Absolute Auto 0.4 X10*3/uL (0.1-1.2); Monocytes Percent Auto 6.4 % (2-11); Neutrophils Absolute Auto 3.1 x10*3/uL (2.0-8.3); Neutrophils Percent Auto 48.6 % (45-73); Platelet Count 263 X10*3/uL (160-400); Red Blood Count 4.35 X10*6/uL (4.60-5.80); Red Cell Distribution Width 13.2 % (11.0-16.0); White Blood Count 6.4 X10*3/uL (4.8-10.8)
[2022-02-04 13:53] LABS: Calcium 10.1 mg/dL (8.4-10.2)
[2022-02-04 14:00] LABS: Anion Gap 12 (12-20); Blood Urea Nitrogen 14 mg/dL (9-16); Carbon Dioxide 23 mmol/L (22-29); Chloride 108 mmol/L (96-108); Estimated Glomerular Filt Rate > 60; Glucose Random 93 mg/dL (60-115); Potassium 4.5 mmol/L (3.3-5.1); Sodium 138 mmol/L (135-145)
[2022-02-06 13:12] LABS: Calcium (PTHI) 9.9 mg/dL (8.6-10.3); PTHI 57 pg/mL (16-77)
[2022-02-07 16:27] LABS: Calcium, Ionized 5.3 mg/dL (4.8-5.6)
== END 2022-02-04 11:51 | disposition home or self-care (01) ==
LOC: HO.HMGCLDS 11:50
PROVIDERS: PCP Nurse Practitioner Family; Visit Provider Family Medicine
DX: N17.9 Acute kidney failure, unspecified (principal); E87.6 Hypokalemia; D64.9 Anemia, unspecified; E83.52 Hypercalcemia
CPT/HCPCS: 36415; 80048; 82310; 82330; 83970; 85025

== ENCOUNTER → 2022-02-17 10:32 | Outpatient (REF) | payer OTHER, SELFPAY ==
--- NOTE | 2022-02-17 10:31 | CA_ITS ---
Acquisition Time: 2022-02-17 10:41:54 Total Exercise Time: 00:09:29 Test Indications: chest pain Medications: see office notes Protocol: BRITTANEY Max HR: 173 BPM 92% of Pred: 188 BPM Max BP: 186/074 mmHG Max Work Load: 10.7 METS Exercise stress test with exercise 9 min 29 sec of Brittaney protocol, achieving 92% MPHR 10.7 METs without anginal symptoms, without arrythmia, with normotensive response to exercise, without EKG changes meeting criteria for ischemia. Test reviewed with Dr Rivera. Referred By: Leelee Barker Overread By: VERNA WOMACK
== END ==
LOC: HO.CARD 10:32
PROVIDERS: PCP Nurse Practitioner Family; Visit Provider Nurse Practitioner Family
DX: R07.89 Other chest pain (principal)
CPT/HCPCS: 93017

== ENCOUNTER 2022-03-12 11:39 | Emergency (ER) | payer OTHER, SELFPAY ==
--- NOTE | ~2022-03-12 | CT_ITS ---
EXAMINATION: CT ABDOMEN AND PELVIS WITH CONTRAST CLINICAL INFORMATION: Right lower quadrant pain with question of diverticulitis COMPARISON: CT abdomen pelvis 12/28/2021 TECHNIQUE: Multidetector volumetric images were obtained from the superior aspect of the liver through the pubic symphysis following administration 85 mL of Omnipaque 350 intravenous contrast. Sagittal and coronal reformatted images were obtained on the technologist's workstation. Oral contrast: No This CT examination was performed using dose optimization techniques as appropriate, variously including the following: *Automated exposure control *Adjustment of mA and/or kV according to patient size (this includes techniques or standardized protocols for targeted exams where dose is matched to indication/reason for exam; i.e. extremities or head) *Use of iterative reconstruction technique DLP: 761 mGy-cm FINDINGS: LUNG BASES: The visualized lung bases are unremarkable. LIVER, GALLBLADDER, AND BILIARY TREE: The liver is normal in size, shape, and attenuation. No focal hepatic lesion or biliary ductal dilatation is present. The gallbladder is unremarkable with no evidence of radiopaque gallstones, gallbladder wall thickening, or obvious pericholecystic inflammatory changes. PANCREAS: Unremarkable. SPLEEN: Unremarkable. ADRENAL GLANDS: Unremarkable. KIDNEYS AND URETERS: The kidneys are normal in size, shape, and attenuation. No hydronephrosis, hydroureter, or calculi seen. No perinephric stranding. BLADDER: Unremarkable. GASTROINTESTINAL TRACT: Diverticular changes are present in the left colon. The previously seen focus of acute diverticulitis has cleared and currently there is no evidence to suggest the presence of diverticulitis. The small and large bowel are otherwise unremarkable. The appendix is unremarkable. A tiny appendicolith is noted at the distal end of the appendix. ABDOMINAL WALL: No significant hernia is appreciated. LYMPH NODES: No retroperitoneal lymphadenopathy. VASCULAR: Unremarkable. PELVIC VISCERA: Unremarkable. OSSEOUS STRUCTURES: Unremarkable. CT/CT abdomen pelvis w con IMPRESSION: 1. No evidence of diverticulitis with resolution of prior changes seen in December. The appendix is normal. 2. A cause for the patient's right lower quadrant pain has not been found. Fleischner guidelines were followed.
[2022-03-12 12:46] VITALS: BP 139/92; PULSE 82; RESP 16; TEMP 36.6; O2SAT 98; BMI 3298.8
[2022-03-12 13:54] LABS: MANUAL DIFF FLAG NO
[2022-03-12 13:55] LABS: Basophils Absolute Auto 0.1 X10*3/uL (0.0-0.2); Basophils Percent Auto 0.8 % (0-2); Eosinophils Absolute Auto 0.5 X10*3/uL (0.0-0.4); Eosinophils Percent Auto 6.1 % (0-4); Hematocrit 39.2 % (42.0-52.0); Hemoglobin 13.6 g/dl (14.0-18.0); Imm Gran Abs Auto 0.02 X10*3/uL (0.00-0.03); Imm Gran Pct Auto 0.3 % (0.0-0.4); Lymphocytes Absolute Auto 2.7 X10*3/uL (1.2-4.9); Lymphocytes Percent Auto 35.3 % (20-40); Mean Corpuscular HGB Conc 34.7 g/dl (31.0-36.0); Mean Corpuscular Hemoglobin 29.7 pg (27.0-33.0); Mean Corpuscular Volume 85.6 fL (80.0-98.0); Monocytes Absolute Auto 0.7 X10*3/uL (0.1-1.2); Monocytes Percent Auto 8.7 % (2-11); Neutrophils Absolute Auto 3.7 x10*3/uL (2.0-8.3); Neutrophils Percent Auto 48.8 % (45-73); Platelet Count 225 X10*3/uL (160-400); Red Blood Count 4.58 X10*6/uL (4.60-5.80); Red Cell Distribution Width 12.9 % (11.0-16.0); White Blood Count 7.5 X10*3/uL (4.8-10.8)
[2022-03-12 13:56] LABS: Appearance Urine CLEAR; Color Urine YELLOW; Glucose Urine UA NEG (NEG); Leukocyte Esterase Urine NEG (NEG); Nitrite Urine NEG (NEG); PH 6.5 (5.0-8.0); Urine Blood NEG (NEG); Urine Ketones NEG (NEG); Urine Protein NEG (NEG-TRACE)
[2022-03-12 14:28] LABS: Alanine Aminotransferase 29 U/L (0-40); Albumin Level 4.6 g/dL (3.5-5.0); Alkaline Phosphatase 67 U/L (39-117); Anion Gap 9 (12-20); Aspartate Amino Transferase 23 U/L (5-37); Bilirubin Total 0.3 mg/dL (0.0-1.0); Blood Urea Nitrogen 12 mg/dL (9-16); Calcium 9.9 mg/dL (8.4-10.2); Carbon Dioxide 26 mmol/L (22-29); Chloride 107 mmol/L (96-108); Estimated Glomerular Filt Rate > 60; Glucose Random 96 mg/dL (60-115); Potassium 4.5 mmol/L (3.3-5.1); Sodium 137 mmol/L (135-145); Total Protein 7.1 g/dL (6.5-8.0)
--- NOTE | 2022-03-12 19:10 | ED.ABDPAIN ---
HPI - Abdominal Pain General Chief Complaint: Abdominal Pain Stated Complaint: light headed , R rib pain, L hip pain Time Seen by Provider: 03/12/22 18:47 Source: patient Mode of arrival: ambulatory Limitations: no limitations History of Present Illness HPI narrative: 31-year-old male who presents emergency department for evaluation of abdominal pain and lightheadedness x5 days. The patient complains constant, sharp, spasm pain any points to his right lower quadrant and left upper quadrant when asked to localize the pain. The pain is come on gradually is gotten worse. The pain is constant but waxes and wanes in intensity and is 6/10 at its worst. He denied fever, chills, rhinorrhea, sore throat, cough. He states that occasionally when he gets spasm in his left upper quadrant in gets pain in his left chest. Denied shortness of breath or dyspnea on exertion. He had 1 episode of diarrhea and 1 episode of black stools. He has taken ibuprofen for the pain with only minimal relief his discomfort. The patient was hospitalized for similar pain from 12/29 2021 until 01/03/2022. At that time he was diagnosed with diverticulitis, acute kidney injury, rhabdomyolysis, high calcium (secondary to Tums). MD elicited complaint: abdominal pain Pertinent past history: diverticulitis Onset (ago): day(s) (5) Pain Consistency: constant Location: LUQ and RLQ Severity: moderate Pain scale (0-10): 6 Quality: sharp and other (spasm) Radiation: none Migration to: no migration Exacerbating factors: nothing Relieving factors: nothing Associated symptoms: other (lightheaded) Related Data Home Medications Medication Instructions Recorded Confirmed acetaminophen 500 mg tablet 500 mg PO Q6H PRN Pain 12/28/21 03/12/22 diphenhydramine HCl 25 mg capsule 25 mg PO TID PRN allergies 12/28/21 03/12/22 (Benadryl) pantoprazole 40 mg tablet,delayed 1 tab PO DAILY 12/28/21 03/12/22 release Previous Rx's Medication Instructions Recorded dicyclomine 10 mg capsule 20 mg PO QIDACHS #120 caps 01/03/22 nicotine (polacrilex) 2 mg gum 2 mg buccal Q2H PRN Nicotine 01/03/22 Cravings #100 ea cholecalciferol (vitamin D3) 25 25 mcg PO DAILY #90 tabs 01/21/22 mcg (1,000 unit) tablet nystatin 100,000 unit/mL oral 5 ml PO QID 10 days #200 mL 02/14/22 suspension sumatriptan succinate 25 mg tablet See Rx Instructions PO .COMPLEX 02/19/22 #10 tabs Allergies Allergy/AdvReac Type Severity Reaction Status Date / Time cat dander Allergy Severe Facial Verified 03/12/22 12:45 Swelling mold Allergy Intermediate Shortness Verified 03/12/22 12:45 of Breath Review of Systems Review of Systems Yes all other systems are reviewed and are negative [facility] Past Medical History Medical History H/O gynecomastia Hospital discharge follow-up Milk alkali syndrome Nephrolithiasis Seasonal allergies Sinusitis Surgical History History of esophagogastroduodenoscopy (EGD) S/P excision of lipoma Family History Family History Maternal Grandfather Liver cancer Paternal Grandmother Cancer of unknown origin Mother No problems noted. 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 Cognitive needs: No Hearing needs: No Vision needs: Yes (glass/contacts) Physical Exam ED Vital Signs: Vital Signs - 24 hr 03/12/22 12:46 03/12/22 19:27 03/12/22 22:05 Temperature 97.8 F 97.9 F Pulse Rate 82 69 74 Respiratory Rate 16 16 18 Blood Pressure 139/92 H 138/89 129/84 Pulse Oximetry 98 98 98 Oxygen Delivery Method Room Air Room Air Room Air BMI result Body Mass Index 3298.8 Const General: cooperative and no acute distress Orientation/consciousness: oriented to person and oriented to place Limitations: no limitations HENMT Head: Yes normal to inspection, Yes normocephalic and Yes atraumatic Ears: external ears normal General nose exam: Normal external nose present Face and sinus: Yes normal facial exam Mouth: Normal oral and palatal mucosa present Throat: Yes posterior oropharynx normal Eyes General: appearance normal, both eyes and all related structures Pupils: Equal, round and reactive pupils present Neck Neck: Yes normal visual inspection, Yes no lymphadenopathy, Yes trachea midline and Yes supple Chest Chest palpation & inspection: normal inspection of the chest and normal palpation of entire chest wall Resp Effort & Inspection: normal respiratory effort and able to speak in complete sentences Auscultation: clear to auscultation bilaterally Cardio Rate: regular rate Rhythm: regular rhythm Heart sounds: S1 normal heart sound present, S2 normal heart sound present and no murmurs GI Inspection: Yes normal to inspection Palpation (GI): Soft to palpation, Tenderness to palpation present (GI) in the RLQ (Moderate) and in the LUQ (Moderate) and no guarding Auscultation: normal bowel sounds General: Yes no CVA tenderness Back/Spine/Pelvis Back: no CVA tenderness Skin General skin exam: no rashes or lesions noted Neuro General: oriented to person and oriented to place Cranial nerves: Yes CN's II-XII intact bilaterally and Yes Equal, round and reactive pupils present Cognition (Neuro): normal cognition Motor exam (neuro): 5/5 motor strength present throughout Extrem General: Yes normal to inspection Psych Appearance: grossly normal Speech and movement: Normal speech and movement present Affect: normal affect Attitude: cooperative Thought process: Normal thought process present Thought content: Normal thought content present Course Course Course Narrative: 1921: 31-year-old male who presents emergency department for evaluation of right lower quadrant left upper quadrant pain x5 days. Patient had a similar pain in December 2021 and was hospitalized for acute diverticulitis, acute kidney injury, hypercalcemia. Patient's physical examination did reveal right lower quadrant and left upper quadrant tenderness otherwise was unremarkable. Patient's laboratory evaluation revealed a normal CBC, normal CMP and slightly elevated CK of 312 compared to 2094 for (12/28/2021). Calcium and lipase are pending. I ordered normal saline IV x1 L. The patient does not want any pain medications. CT scan of the abdomen pelvis with IV contrast will be obtained to rule out diverticulitis and evaluate the patient's pain. 2219: The patient's lipase was normal. CT scan of the abdomen pelvis did not reveal a clear cause for the patient's pain. I did discuss these findings with the patient. 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 The patient was given a work note as well. MDM - Abdominal Pain Lab Data Result diagrams: 03/12/22 13:49 03/12/22 13:49 Labs: Lab Results 03/12/22 03/12/22 03/12/22 Range/Units 13:48 13:49 13:49 WBC 7.5 (4.8-10.8) X10*3/uL RBC 4.58 L (4.60-5.80) X10*6/uL Hgb 13.6 L (14.0-18.0) g/dl Hct 39.2 L (42.0-52.0) % MCV 85.6 (80.0-98.0) fL MCH 29.7 (27.0-33.0) pg MCHC 34.7 (31.0-36.0) g/dl RDW 12.9 (11.0-16.0) % Plt Count 225 (160-400) X10*3/uL MPV 9.0 L (9.4-12.4) fL Immature Gran % (Auto) 0.3 (0.0-0.4) % Neut % (Auto) 48.8 (45-73) % Lymph % (Auto) 35.3 (20-40) % [place] % (Auto) 8.7 (2-11) % Eos % (Auto) 6.1 H (0-4) % Baso % (Auto) 0.8 (0-2) % Lymph # (Auto) 2.7 (1.2-4.9) X10*3/uL [place] # (Auto) 0.7 (0.1-1.2) X10*3/uL Eos # (Auto) 0.5 H (0.0-0.4) X10*3/uL Baso # (Auto) 0.1 (0.0-0.2) X10*3/uL Abs Immat Gran (auto) 0.02 (0.00-0.03) X10*3/uL Absolute Neuts (auto) 3.7 (2.0-8.3) x10*3/uL Absolute Nucleated RBC 0.000 (0.0-0.012) X10*3/uL Nucleated RBC % (auto) 0.0 (0.0-0.2) /100WBC Sodium 137 (135-145) mmol/L Potassium 4.5 (3.3-5.1) mmol/L Chloride 107 (96-108) mmol/L Carbon Dioxide 26 (22-29) mmol/L Anion Gap 9 L (12-20) BUN 12 (9-16) mg/dL Creatinine 1.22 (0.5-1.4) mg/dL Estim Creat Clear Calc 5483.8 Estimated GFR > 60 Random Glucose 96 (60-115) mg/dL Calcium 9.9 (8.4-10.2) mg/dL Total Bilirubin 0.3 (0.0-1.0) mg/dL AST 23 (5-37) U/L ALT 29 (0-40) U/L Alkaline Phosphatase 67 (39-117) U/L Total Creatine Kinase 312 H (38-174) U/L Total Protein 7.1 (6.5-8.0) g/dL Albumin 4.6 (3.5-5.0) g/dL Lipase 31 (8-78) U/L Urine Color YELLOW Urine Appearance CLEAR Urine pH 6.5 (5.0-8.0) Ur Specific [place] 1.010 (1.005-1.025) Urine Protein NEG (NEG-TRACE) MG/DL Urine Glucose (UA) NEG (NEG) MG/DL Urine Ketones NEG (NEG) MG/DL Urine Blood NEG (NEG) Urine Nitrite NEG (NEG) Ur Leukocyte Esterase NEG (NEG) Discharge Plan Discharge Clinical Impression: Abdominal pain, Light-headed feeling Instructions: Abdominal Pain (ED) Additional Instructions: You had a complete blood count, comprehensive metabolic panel, calcium and lipase-all of these tests were normal which is reassuring. Your CPK was slightly elevated at 312 (42499 his normal). This is compared to your high as value on 12/28/2021 of 2093. This is reassuring as well. The CT scan of your abdomen pelvis with IV contrast did not reveal a clear cause for your pain. Continue taking your medications as prescribed by the GI doctor. Keep your GI doctor appointment Follow-up with your doctor in 2 days. Please return to the emergency department if your symptoms get worse or if you develop any symptoms that are concerning to you. Please see the work note. Prescriptions: No Action cholecalciferol (vitamin D3) 25 mcg (1,000 unit) tablet 25 mcg PO DAILY Qty: 90 0RF sumatriptan succinate 25 mg tablet See Rx Instructions PO .COMPLEX Qty: 10 0RF Rx Instructions: take 1 tab at onset of headache; if no relief may repeat 1 tab after at least 2 hrs; max = 4 tabs/24 hr PO pantoprazole 40 mg tablet,delayed release (DR/EC) 1 tab PO DAILY acetaminophen 500 mg Tablet 500 mg PO Q6H PRN (Reason: Pain) diphenhydramine HCl [Benadryl] 25 mg Capsule 25 mg PO TID PRN (Reason: allergies) nicotine (polacrilex) 2 mg Gum 2 mg buccal Q2H PRN (Reason: Nicotine Cravings) Qty: 100 0RF dicyclomine 10 mg Capsule 20 mg PO QIDACHS Qty: 120 0RF nystatin 100,000 unit/mL suspension 5 ml PO QID 10 Days Qty: 200 0RF Rx Instructions: swish and spit Stand Alone Forms: Work/School Release
[2022-03-12 19:20] LABS: Lipase 31 U/L (8-78)
[2022-03-12] MEDS: 0.9 % Sodium Chloride 1,000 ML 999 ML IV (19:20)
[2022-03-12 19:27] VITALS: BP 138/89; PULSE 69; RESP 16; TEMP 36.6; O2SAT 98
[2022-03-12] MEDS: iohexoL 350 MG/ML 100 ML INFUS..BTL IV (19:42)
[2022-03-12 22:05] VITALS: BP 129/84; PULSE 74; RESP 18; O2SAT 98
== END 2022-03-12 22:34 | disposition home or self-care (01) ==
PROVIDERS: Emergency Provider Emergency Medicine Emergency Medical Services; PCP Nurse Practitioner Family
DX: R10.31 Right lower quadrant pain (principal); R10.12 Left upper quadrant pain; R42 Dizziness and giddiness; F17.200 Nicotine dependence, unspecified, uncomplicated; I10 Essential (primary) hypertension
CPT/HCPCS: 36415; 74177; 80053; 81003; 82550; 83690; 85025; 96360; 99284; Q9967

== ENCOUNTER 2022-03-18 06:53 | Day surgery (SDC) | payer OTHER, SELFPAY ==
[2022-03-12 13:52] VITALS: BMI 34.9
--- NOTE | 2022-03-17 11:42 | P.CONAN_ITS ---
Documented by User: Kami Spring NP 03/17/22 11:46 HPI - Anesthesia Eval Consult details Narrative: 31yo M for Upper Endoscopy and Colonoscopy [facility] Active Problems Active Problems: All Active Problems (Updated 03/13/22 @ 00:04 by Dmitry Doss) Dizziness (Acute) Cervical lymphadenitis (Acute) Abdominal pain, left lateral (Acute) Abdominal muscle strain (Acute) ROSCOE (acute kidney injury) (Acute) Acute hypokalemia (Acute) Anemia (Acute) High blood pressure (Acute) Diverticulitis (Acute) Tobacco abuse (Acute) Screening for hypothyroidism (Acute) Hypertension (Acute) Chest discomfort (Acute) Migraine (Acute) Low vitamin D level (Acute) Hypercalcemia (Acute) Thrush (Acute) Adult general medical exam (Acute) Past Medical History Medical History H/O gynecomastia Hospital discharge follow-up Milk alkali syndrome Nephrolithiasis Seasonal allergies Sinusitis Family History Family History Maternal Grandfather Liver cancer Paternal Grandmother Cancer of unknown origin Mother No problems noted. Father Cardiac disease Surgical History Surgical History History of esophagogastroduodenoscopy (EGD) S/P excision of lipoma Social History Social History Household Members: None Housing: Apartment Do you presently have visiting nurse or other home services: No Alcohol intake: never Patient Tobacco Use Status: Current everyday Tobacco user Tobacco use type: Cigarette Cigarette Packs Per Day: 0.5 Cigarettes Per Day: 8 Years Smoked: 15 e-Cigarette/Vaping Use: Currently Using Patient Interested in Nicotine Replacement: No Second Hand Smoke Exposure: Yes Use of substances other than those prescribed or required for medical reasons: No Are you DNR?: No Advance Directives: No Advance Directives Information Provided: Yes service: No Current occupational status: employed 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 Cognitive needs: No Hearing needs: No Vision needs: Yes (glass/contacts) Meds Allergies Allergy/AdvReac Type Severity Reaction Status Date / Time cat dander Allergy Severe Facial Verified 03/12/22 12:45 Swelling mold Allergy Intermediate Shortness Verified 03/12/22 12:45 of Breath Home Medications Medication Instructions Recorded Confirmed Last Taken Type acetaminophen 500 mg tablet 500 mg PO Q6H PRN Pain 12/28/21 03/12/22 Unknown His tory diphenhydramine HCl 25 mg capsule 25 mg PO TID PRN allergies 12/28/21 03/12/22 Unknown History (Benadryl) pantoprazole 40 mg tablet,delayed 1 tab PO DAILY 12/28/21 03/12/22 12/28/21 His tory release Exam Exam Date and Time: March 17, 2022 1142 Height,Weight and Vital Signs: Height 6 ft Weight 117.027 kg Pertinent Lab Results Pertinent Lab Results: Laboratory Tests 03/12/22 03/12/22 13:49 13:49 WBC 7.5 Hgb 13.6 L Hct 39.2 L Plt Count 225 Sodium 137 Potassium 4.5 Chloride 107 Carbon Dioxide 26 BUN 12 Creatinine 1.22 Narrative Narrative: EKG 12/2021 Vent. Rate : 092 BPM ? ? Atrial Rate : 092 BPM ?? P-R Int : 174 ms? QRS Dur : 096 ms ? ? QT Int : 350 ms ? ? ? P-R-T Axes : 051 013 021 degrees ?? QTc Int : 432 ms ? Normal sinus rhythm Minimal voltage criteria for LVH, may be normal variant ( R in aVL ) Borderline ECG When compared with ECG of 02-MAY-2021 10:36, T wave inversion now evident in Anterior leads Exercise Stress 02/2022 Protocol: JAVY ? Max HR: 173 BPM? 92% of? Pred: 188 BPM Max BP: 186/074 mmHG Max Work Load: 10.7 METS ? Exercise stress test with exercise 9 min 29 sec of Javy protocol, achieving 92% ?MPHR 10.7 METs without anginal symptoms, without arrythmia, with normotensive ?response to exercise, without EKG changes meeting criteria for ischemia. Test ?reviewed with Dr Rivera. Assessment and Plan Assessment Anesthesia Assessment: Chart Reviewed Documented by User: Rhonda Allison MD 03/18/22 07:50 PMF Past Medical History Medical History H/O gynecomastia Hospital discharge follow-up Milk alkali syndrome Nephrolithiasis Seasonal allergies Sinusitis Functional capacity: independent ambulation Family History Family History Maternal Grandfather Liver cancer Paternal Grandmother Cancer of unknown origin Mother No problems noted. Father Cardiac disease Family history of problems with anesthesia: No Surgical History Surgical History History of esophagogastroduodenoscopy (EGD) S/P excision of lipoma History of Problems with Anesthesia: No Social History Social History Household Members: None Housing: Apartment Do you presently have visiting nurse or other home services: No Alcohol intake: never Patient Tobacco Use Status: Current everyday Tobacco user Tobacco use type: Cigarette Cigarette Packs Per Day: 0.5 Cigarettes Per Day: 8 Years Smoked: 15 e-Cigarette/Vaping Use: Currently Using Patient Interested in Nicotine Replacement: No Second Hand Smoke Exposure: Yes Use of substances other than those prescribed or required for medical reasons: No Are you DNR?: No Advance Directives: No Advance Directives Information Provided: Yes service: No Current occupational status: employed 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 Cognitive needs: No Hearing needs: No Vision needs: Yes (glass/contacts) Meds Allergies Allergy/AdvReac Type Severity Reaction Status Date / Time cat dander Allergy Severe Facial Verified 03/12/22 12:45 Swelling mold Allergy Intermediate Shortness Verified 03/12/22 12:45 of Breath Home Medications Medication Instructions Recorded Confirmed Last Taken Type acetaminophen 500 mg tablet 500 mg PO Q6H PRN Pain 12/28/21 03/12/22 Unknown History diphenhydramine HCl 25 mg capsule 25 mg PO TID PRN allergies 12/28/21 03/12/22 Unknown History (Benadryl) pantoprazole 40 mg tablet,delayed 1 tab PO DAILY 12/28/21 03/12/22 12/28/21 History release Exam Airway Mallampati Class: II TM Dist: >3cm Neck ROM: Full Heart: RRR Lungs: CTA Assessment and Plan Final Anesthetic Review Family History of Problems with Anesthesia: No History of Problems with Anesthesia: No ASA Class: II Final Preanesthetic Review: No Changes in Pt Med Stat, Meds/Allgs Chart Reviewed, Consent Obtained/Reviewed and Anes Risks/Benef Reviewed Patient Risk: Low Procedure Risk: Low Anesthetic Plan Anesthetic Plan: MAC: Disposition: Standard PACU
[2022-03-18 07:25] VITALS: BMI 31.8
[2022-03-18 07:30] VITALS: BP 128/86; PULSE 80; RESP 16; TEMP 35.9; O2SAT 99
[2022-03-18] MEDS: Lactated Ringers 1,000 ML 100 ML IVCONT (07:32)
--- NOTE | 2022-03-18 08:41 | P.BOP_ITS ---
Brief Operative Note Date of Service: 03/18/22 Pre-op diagnosis: gerd, diverticulitis Post-op diagnosis: same (gerd, colon polyp, diverticulosis) Procedure: EGD, colon Surgeon: Sanket Hendrix Anesthesia: MAC Was an Spinner Operator used for this Procedure?: No Estimated blood loss (mL): 2 Pathology: other (see path req) Condition: stable Disposition: PACU
[2022-03-18 08:45] VITALS: BP 96/63; PULSE 72; RESP 16; TEMP 36.1; O2SAT 98
[2022-03-18 09:00] VITALS: BP 108/69; PULSE 62; RESP 16; O2SAT 98
--- NOTE | 2022-03-18 09:10 | HO.POSTANES ---
Post Anesthesia Evaluation Post Anesthesia Evaluation Vital Signs: Vital Signs Temp Pulse Resp BP Pulse Ox O2 Del Method 03/18/22 09:00 62 16 108/69 98 Room Air 03/18/22 08:45 97.0 F 72 16 96/63 98 Room Air 03/18/22 07:30 96.7 F L 80 16 128/86 99 Room Air Anesthesia: Monitored Mental Status: Awake Pain Control: Satisfactory Nausea/Vomiting: None Hydration: Adequate Anesthesia-Related Issues: No Anes. Related Issues
[2022-03-18 09:15] VITALS: BP 115/79; PULSE 71; RESP 16; TEMP 36.1; O2SAT 99
--- NOTE | 2022-03-18 10:15 | OP_ITS ---
SURGEON: Sanket Hendrix MD INDICATIONS: Gastroesophageal reflux disease. PREOPERATIVE DIAGNOSIS: POSTOPERATIVE DIAGNOSIS: PROCEDURE PERFORMED: 1. Upper endoscopy with biopsy. 2. Colonoscopy to the terminal ileum with snare polypectomy. ESTIMATED BLOOD LOSS: COMPLICATIONS: ANESTHESIA: Diverticulitis. ASSISTANTS: SPECIMENS: MEDICATIONS: Monitored anesthesia care. DESCRIPTION OF PROCEDURE: History and physical performed. The risks and benefits of the procedure were explained to the patient. Informed consent was obtained. The patient was placed in the left lateral decubitus position. The Olympus video gastroscope was introduced into the esophagus, stomach, and duodenum. Examination was performed. The scope was removed. He was repositioned for colonoscopy. Digital rectal exam was performed and was found to be normal. The Olympus pediatric colonoscope was introduced into the rectum and advanced to the cecum without difficulty. The cecum was identified by transillumination, palpation, identification of ileocecal valve. Examination was performed. The scope was removed. He tolerated both procedures well, was returned to recovery in stable condition. FINDINGS: UPPER ENDOSCOPY: Esophagus: The esophagus was normal. There was no esophagitis. Biopsies were obtained from the EG junction. Stomach: The stomach was normal. Antral biopsies were obtained. Duodenum: The bulb and second portion were normal. COLONOSCOPY: The terminal ileum was normal. The visualized colonic mucosa was within normal limits. There was mild sigmoid diverticulosis. There was a small hyperplastic-appearing polyp at about 20 cm, which was removed with a cold snare measuring 6 mm. This was recovered via suction. Mild sigmoid diverticulosis was noted as above. Retroflexed examination was remarkable for small internal hemorrhoids. IMPRESSION: 1. Gastroesophageal reflux disease. 2. Colon polyp. 3. Diverticulosis. RECOMMENDATION: Follow up the biopsy results. MD BRIANA Palma/JANETTE / [id number]
== END 2022-03-18 09:27 | disposition home or self-care (01) ==
PROVIDERS: PCP Nurse Practitioner Family; Visit Provider Internal Medicine Gastroenterology
PROC: (CPT 45385; principal; 2022-03-18 08:10)
DX: K57.30 Diverticulosis of large intestine without perforation or abscess without bleeding (principal); D12.5 Benign neoplasm of sigmoid colon; K64.8 Other hemorrhoids; K21.9 Gastro-esophageal reflux disease without esophagitis; I10 Essential (primary) hypertension; D64.9 Anemia, unspecified; E83.52 Hypercalcemia; G43.909 Migraine, unspecified, not intractable, without status migrainosus; Z79.899 Other long term (current) drug therapy; Z87.442 Personal history of urinary calculi; F17.210 Nicotine dependence, cigarettes, uncomplicated
CPT/HCPCS: 45385; 43239; 88305; 88342

== ENCOUNTER 2022-04-23 14:49 | Outpatient (REF) | payer OTHER, SELFPAY ==
[2022-04-23 16:41] LABS: MANUAL DIFF FLAG NO
[2022-04-23 16:56] LABS: Basophils Absolute Auto 0.1 X10*3/uL (0.0-0.2); Basophils Percent Auto 0.7 % (0-2); Eosinophils Absolute Auto 0.5 X10*3/uL (0.0-0.4); Eosinophils Percent Auto 5.7 % (0-4); Hematocrit 42.1 % (42.0-52.0); Hemoglobin 14.2 g/dl (14.0-18.0); Imm Gran Abs Auto 0.04 X10*3/uL (0.00-0.03); Imm Gran Pct Auto 0.4 % (0.0-0.4); Lymphocytes Percent Auto 33.2 % (20-40); Mean Corpuscular HGB Conc 33.7 g/dl (31.0-36.0); Mean Corpuscular Hemoglobin 28.8 pg (27.0-33.0); Mean Corpuscular Volume 85.4 fL (80.0-98.0); Mean Platelet Volume 9.3 fL (9.4-12.4); Monocytes Absolute Auto 0.6 X10*3/uL (0.1-1.2); Monocytes Percent Auto 6.6 % (2-11); Neutrophils Absolute Auto 4.9 x10*3/uL (2.0-8.3); Neutrophils Percent Auto 53.4 % (45-73); Platelet Count 241 X10*3/uL (160-400); Red Blood Count 4.93 X10*6/uL (4.60-5.80); Red Cell Distribution Width 12.4 % (11.0-16.0); White Blood Count 9.1 X10*3/uL (4.8-10.8)
[2022-04-23 17:25] LABS: Vitamin D 25-OH Total 29.1 ng/mL (>30)
== END 2022-04-23 14:50 | disposition home or self-care (01) ==
LOC: HO.HMGCLDS 14:49
PROVIDERS: PCP Nurse Practitioner Family; Visit Provider Nurse Practitioner Family
DX: D64.9 Anemia, unspecified (principal); R79.89 Other specified abnormal findings of blood chemistry
CPT/HCPCS: 36415; 82306; 85025

== ENCOUNTER 2022-07-02 14:45 | Outpatient (REF) | payer OTHER, SELFPAY ==
--- NOTE | ~2022-07-02 | MM_ITS ---
EXAMINATION: MM DIAGNOSTIC DIGITAL BREAST TOMOSYNTHESIS, BILATERAL US BREAST TARGETED, BILATERAL CLINICAL INFORMATION: Right breast lump 8-9 o'clock position right breast with patient stating mastodynia within the inferior lateral left breast. Status post surgery for gynecomastia in 2020. COMPARISON: Mammography: None. TECHNIQUE: Digital breast tomosynthesis is performed in both the craniocaudal and mediolateral oblique views along with computer-aided detection (CAD). Synthesized 2D images are generated from the tomosynthesis. Spot compression views of the right breast in mediolateral oblique projection performed. Targeted bilateral breast ultrasound. FINDINGS: The breasts are almost entirely fatty (ACR BI-RADS breast composition Category a). There is postsurgical change noted bilaterally. No suspicious abnormal dominant mass or suspicious grouping of microcalcifications identified. Targeted ultrasound evaluation of both breasts performed. No abnormal cystic or solid masses are identified. No region of abnormal distal sound shadowing was appreciated. No edematous change within the tissues is seen. Results are discussed with the patient at time of visit. MM/MM tomosynthesis diagnostic BI IMPRESSION: No specific mammographic or ultrasound findings to suggest malignancy. ASSESSMENT: BI-RADS 1: Negative RECOMMENDATION: Clinical followup.
== END 2022-07-02 14:46 | disposition home or self-care (01) ==
LOC: HO.MAMMO 14:45
PROVIDERS: PCP Nurse Practitioner Family; Visit Provider Nurse Practitioner Family
DX: N63.15 Unspecified lump in the right breast, overlapping quadrants (principal); R92.2 Inconclusive mammogram
CPT/HCPCS: 76642; 77062; 77066

== ENCOUNTER 2022-07-16 11:59 | Outpatient (REF) | payer OTHER, SELFPAY ==
[2022-07-16 14:15] LABS: Rheumatoid Factor < 13.0 IU/mL (<15.0)
[2022-07-16 14:39] LABS: Vitamin D 25-OH Total 44.7 ng/mL (>30)
[2022-07-21 08:27] LABS: Anti Nuclear Antibody Screen NEGATIVE (NEGATIVE)
== END 2022-07-16 12:00 | disposition home or self-care (01) ==
LOC: HO.HMGCLDS 11:59
PROVIDERS: PCP Nurse Practitioner Family; Visit Provider Nurse Practitioner Family
DX: R79.89 Other specified abnormal findings of blood chemistry (principal); G62.9 Polyneuropathy, unspecified
CPT/HCPCS: 36415; 82306; 86038; 86039; 86431

== ENCOUNTER 2022-09-16 11:56 | Outpatient (REF) | payer OTHER, SELFPAY ==
[2022-09-16 16:10] LABS: Anion Gap 11 (12-20); Blood Urea Nitrogen 16 mg/dL (9-16); Calcium 10.2 mg/dL (8.4-10.2); Carbon Dioxide 23 mmol/L (22-29); Chloride 108 mmol/L (96-108); Estimated Glomerular Filt Rate > 60; Glucose Random 100 mg/dL (60-115); Potassium 4.4 mmol/L (3.3-5.1); Sodium 138 mmol/L (135-145)
== END 2022-09-16 11:57 | disposition home or self-care (01) ==
LOC: HO.HMGCLDS 11:56
PROVIDERS: PCP Nurse Practitioner Family; Visit Provider Nurse Practitioner Family
DX: M54.9 Dorsalgia, unspecified (principal)
CPT/HCPCS: 36415; 80048

== ENCOUNTER → 2023-01-30 13:19 | Outpatient (BNVA) | payer OTHER, SELFPAY | PROVIDERS: PCP Nurse Practitioner Family; Visit Provider Nurse Practitioner Family ==

== ENCOUNTER 2023-03-06 07:22 | Outpatient (REF) | payer OTHER, SELFPAY | END 2023-03-06 07:23 | disposition home or self-care (01) | LOC: HO.NEURO 07:22 | PROVIDERS: PCP Nurse Practitioner Family; Visit Provider Nurse Practitioner Family | DX: H53.9 Unspecified visual disturbance (principal); R41.82 Altered mental status, unspecified | CPT/HCPCS: 95816 ==

== ENCOUNTER 2023-04-28 08:20 | Outpatient (REF) | payer OTHER, SELFPAY ==
[2023-04-28 11:16] LABS: MANUAL DIFF FLAG NO
[2023-04-28 11:22] LABS: Basophils Percent Auto 0.6 % (0-2); Eosinophils Absolute Auto 0.4 X10*3/uL (0.0-0.4); Eosinophils Percent Auto 7.6 % (0-4); Hematocrit 42.9 % (42.0-52.0); Imm Gran Abs Auto 0.01 X10*3/uL (0.00-0.03); Imm Gran Pct Auto 0.2 % (0.0-0.4); Lymphocytes Absolute Auto 2.5 X10*3/uL (1.2-4.9); Lymphocytes Percent Auto 45.6 % (20-40); Mean Corpuscular Hemoglobin 29.8 pg (27.0-33.0); Mean Corpuscular Volume 85.3 fL (80.0-98.0); Mean Platelet Volume 9.3 fL (9.4-12.4); Monocytes Absolute Auto 0.4 X10*3/uL (0.1-1.2); Monocytes Percent Auto 6.5 % (2-11); Neutrophils Absolute Auto 2.1 x10*3/uL (2.0-8.3); Neutrophils Percent Auto 39.5 % (45-73); Platelet Count 191 X10*3/uL (160-400); Red Blood Count 5.03 X10*6/uL (4.60-5.80); Red Cell Distribution Width 12.6 % (11.0-16.0); White Blood Count 5.4 X10*3/uL (4.8-10.8)
[2023-04-28 11:51] LABS: Alanine Aminotransferase 20 U/L (0-40); Albumin Level 4.4 g/dL (3.5-5.0); Alkaline Phosphatase 53 U/L (39-117); Anion Gap 12 (12-20); Aspartate Amino Transferase 24 U/L (5-37); Bilirubin Total 0.4 mg/dL (0.0-1.0); Blood Urea Nitrogen 18 mg/dL (9-16); Calcium 9.7 mg/dL (8.4-10.2); Carbon Dioxide 23 mmol/L (22-29); Chloride 109 mmol/L (96-108); Cholesterol 219 mg/dL (<200); Estimated Glomerular Filt Rate > 60; Glucose Fasting 85 mg/dL (60-99); HDL Cholesterol 51 mg/dL (>40); LDL Cholesterol Calculated 140 mg/dL (<100); Potassium 4.2 mmol/L (3.3-5.1); Sodium 140 mmol/L (135-145); Triglycerides 144 mg/dL (<150)
[2023-04-28 12:10] LABS: TSH reflex Free T4 0.94 uIU/mL (0.32-4.0); Vitamin D 25-OH Total 54.5 ng/mL (>30)
[2023-04-28 12:15] LABS: Folate 7.1 ng/mL (> or = 4.0); Vitamin B12 1193 pg/mL (200-900)
== END 2023-04-28 08:21 | disposition home or self-care (01) ==
LOC: HO.HMGCLDS 08:20
PROVIDERS: PCP Nurse Practitioner Family; Visit Provider Nurse Practitioner Family
DX: R07.89 Other chest pain (principal); Z13.29 Encounter for screening for other suspected endocrine disorder; Z13.220 Encounter for screening for lipoid disorders; Z00.00 Encounter for general adult medical examination without abnormal findings; Z13.1 Encounter for screening for diabetes mellitus; R07.2 Precordial pain; F41.9 Anxiety disorder, unspecified; M54.9 Dorsalgia, unspecified; G62.9 Polyneuropathy, unspecified; R42 Dizziness and giddiness
CPT/HCPCS: 36415; 80053; 80061; 82306; 82607; 82746; 84443; 85025; 93005

== ENCOUNTER 2023-04-28 14:24 | Outpatient (AMB) | payer OTHER, SELFPAY ==
[2023-04-28 14:30] VITALS: BP 116/84; PULSE 84; BMI 28.2
--- NOTE | 2023-04-28 14:30 | A.OFFVIS_ITS ---
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 In Charge Required: No Accompanied by: Self / Same As Patient Allergies cat dander Allergy (Severe, Verified 04/28/23 14:31) Facial Swelling mold Allergy (Intermediate, Verified 04/28/23 14:31) Shortness of Breath weed pollen Allergy (Unknown, Verified 04/28/23 14:31) Unknown Medication List - Last Reconciled 04/28/23 by Seb Ma MD acetaminophen 500 mg PO Q6H PRN diphenhydramine HCl (Benadryl) 25 mg PO TID PRN magnesium oxide 400 mg PO BEDTIME 30 days riboflavin (vitamin B2) 400 mg PO DAILY 30 days rizatriptan 5 - 10 mg PO Q2H PRN HPI HPI Comments History of Present Illness Details Giovany is here for consultation regarding chest pains. He states he gets pains on the left side off and on. Mostly during rest than during activity. In fact when he is physically active, the pain seems to get better. Last year, he underwent a stress test that was unremarkable. As he continues to have chest pains, he has been referred here. Otherwise, patient does not have any known cardiac issues. He has a history of gynecomastia and underwent surgery for the same in the past. Otherwise, there is a history of hospitalization for abdominal pain and treatment for diverticulitis when he also had rhabdomyolysis and renal failure. After that, kidney function improved. Patient states that he has not been himself since that time. His chest pain also started somewhere around that time. According to him, the pain starts in the upper abdomen on the left side and then goes up the left chest. As described above, nonexertional and more so at rest than during exertion. Otherwise, father has had some cardiac issues but full details not clear. According to patient he has had open heart surgery. Question of bicuspid valve but again not sure. He has a pacemaker. [facility] Medical History (Updated 04/28/23 @ 14:41 by Seb Ma MD) Acute hypokalemia ROSCOE (acute kidney injury) H/O gynecomastia Hospital discharge follow-up Milk alkali syndrome Nephrolithiasis Seasonal allergies Sinusitis Sinusitis Surgical History History of esophagogastroduodenoscopy (EGD) S/P excision of lipoma Family History Maternal Grandfather Liver cancer Paternal Grandmother Cancer of unknown origin Mother No problems noted. 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 Cognitive needs: No Hearing needs: No Vision needs: Yes (glass/contacts) Review of Systems Const Denies chills, Denies daytime sleepiness, Denies fatigue, Denies fever(s), Denies frequent falls, Denies night sweats, Denies snoring, Denies weakness, Denies weight gain and Denies weight loss Eyes Denies loss of vision ENT Denies dizziness and Denies hearing loss Card Denies chest pain, Denies chest pain with activity, Denies syncope, Denies rapid heart rate, Denies edema, Denies claudication, Denies leg edema, Denies lightheadedness, Denies palpitations, Denies dyspnea, Denies dyspnea on exertion and Denies orthopnea Resp Denies cough, Denies excessive phlegm production, Denies dyspnea, Denies dyspnea on exertion, Denies snoring and Denies wheezing GI Denies abdominal pain, Denies hematochezia, Denies change in bowel habits, Denies change in stool character, Denies heartburn, Denies nausea and Denies vomiting Denies hematuria, Denies dysuria and Denies urinary frequency Musc Denies arthralgias, Denies muscle weakness, Denies numbness and Denies tingling Skin/Breast Denies nail changes and Denies rash Neuro Denies Abnormal speech present, Denies dizziness, Denies syncope, Denies frequent falls, Denies loss of vision, Denies memory loss, Denies numbness, Denies tingling and Denies weakness Psych Denies depression and Denies memory loss Endo Denies fatigue and Denies palpitations Aller/Immun Denies wheezing Physical Exam Vital Signs: Last Vital Signs Pulse 84 04/28/23 14:30 BP 116/84 04/28/23 14:30 BMI result Body Mass Index 28.2 Const General: comfortable and no acute distress Orientation/consciousness: patient oriented x3 HEENT Other: Unremarkable Head: Yes normal to inspection Neck Neck: Yes normal visual inspection Chest Chest palpation & inspection: normal inspection of the chest Resp Auscultation: clear to auscultation bilaterally Cardio Palpation: normal PMI Heart sounds: S1 normal heart sound present, S2 normal heart sound present, no gallops, no murmurs and no rubs GI Palpation (GI): Soft to palpation Back/Spine/Pelvis Other: unremarkable Skin General skin exam: no rashes or lesions noted Neuro General: patient oriented x3 Speech: No Abnormal speech present Extrem General: Yes normal to inspection Psych Mental Status: mental status grossly normal Office Procedures EKG Details: EKG with underlying sinus rhythm at 84/Min; no significant ST-T changes and otherwise unremarkable. [place] [id number], Complete Assessment & Plan Assessment & Plan (1) Precordial chest pain: Code(s): R07.2 - Precordial pain Plan Per description, pain getting better with activity as was characteristics do not sound like cardiac pain. Twelve lead EKG is unremarkable. In the stress test, he was able to exercise for 10.7 Mets. Reached 92% of maximum predicted heart rate. No angina. Normal blood pressure response. No EKG evidence of ischemia. Overall, normal Javy ETT. Overall, symptoms do not sound cardiac in nature. Rationale discussed with patient and he understands. We will pursue an echocardiogram as well to ensure there is no cardiomyopathy or other findings of concern. Otherwise, reassured. Orders: Orders CA echo transthoracic complete Today R07.2 - Precordial pain Medications: Changed From rizatriptan max 2 tabs per day or 4 tabs per week 5 - 10 mg (0.5 - 1 x 10 mg) PO Q2H 21 days PRN 12 tabs 3RF migraine headache To rizatriptan max 2 tabs per day or 4 tabs per week 5 - 10 mg PO Q2H PRN Coding Level of Care Code New Pt Level 3 (44554) Diagnoses Precordial chest pain R07.2 CPT Codes EKG - CPT: 48288-[id number], Complete ([id number])
== END 2023-04-28 14:49 | disposition home or self-care (01) ==
PROVIDERS: PCP Nurse Practitioner Family; Visit Provider Internal Medicine
DX: R07.2 Precordial pain (principal)
CPT/HCPCS: 93010; 99203

== ENCOUNTER 2023-05-15 15:24 | Outpatient (AMB) | payer OTHER, SELFPAY ==
--- NOTE | 2023-05-15 15:38 | A.OFFVIS_ITS ---
Intake Vital Signs 05/15/23 15:39 Weight 205 lb 8 oz BP 130/78 Blood Pressure Location Rt brachial Position Sitting Pulse 78 Pulse Source Pulse Oximeter Pulse Oximetry (%) 98 Oxygen Delivery Method Room Air Intake Visit Reasons: 3m follow up Dizziness/Giddiness/Migraines Intake Note: Pt presents today for fup headaches, states no improvement . Medications will put him to sleep if he has a headache but doesnt help much. Allergies cat dander Allergy (Severe, Verified 05/15/23 15:44) Facial Swelling mold Allergy (Intermediate, Verified 05/15/23 15:44) Shortness of Breath weed pollen Allergy (Unknown, Verified 05/15/23 15:44) Unknown Medication List - Last Reconciled 05/15/23 by Chloe Freitas, POORNIMA acetaminophen 500 mg PO Q6H PRN diphenhydramine HCl (Benadryl) 25 mg PO TID PRN fluconazole 50 mg PO DAILY magnesium oxide 400 mg PO BEDTIME 30 days riboflavin (vitamin B2) 400 mg PO DAILY 30 days rizatriptan 5 - 10 mg PO Q2H PRN HPI HPI Comments History of Present Illness Details 32-yr-old male presents for f/u visit. Pt denies any significant interval medical changes. Pt has tried making some lifestyle changes- he stopped eating all sugar, carbohydrates. Was primarily eating meat, green vegetables, and black coffee. He was started on Flucanozole 100mg qd (started about 15 days ago)- for tx of ? systemic fungal infection thought triggered by multiple courses of ABT use, by [facility] ([facility]). He continues to have epigastric pain, digestion difficulties. He did have cardiology consult, and his s/s were not felt to be cardiogenic. Was also told he had recent EBV infection- by [facility]. Since, he has not had intense headache. However he still has constant sensitivity and spatial perception dizziness. He did speak to his father- his father's headaches sound more like classic migraine. Since the last visit, Dr Heard started him on Amitriptyline for increased headaches. The amitriptyline- caused sleepiness but was not effective. Rizatriptan was not very effective- and caused sleepiness. [facility] Medical History Sinusitis Hospital discharge follow-up Milk alkali syndrome Acute hypokalemia ROSCOE (acute kidney injury) Sinusitis H/O gynecomastia Seasonal allergies Nephrolithiasis Surgical History History of esophagogastroduodenoscopy (EGD) S/P excision of lipoma Family History Maternal Grandfather Liver cancer Paternal Grandmother Cancer of unknown origin Mother No problems noted. 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 Cognitive needs: No Hearing needs: No Vision needs: Yes (glass/contacts) Review of Systems Const All systems reviewed & are unremarkable except as noted in HPI and below Physical Exam Vital Signs: Last Vital Signs Pulse 78 05/15/23 15:39 BP 130/78 05/15/23 15:39 Pulse Ox 98 05/15/23 15:39 Oxygen Delivery Method Room Air 05/15/23 15:39 Const General: cooperative and no acute distress Orientation/consciousness: patient oriented x3 HEENT Head: Yes normocephalic Resp Effort & Inspection: normal respiratory effort and able to speak in complete sentences Neuro General: patient oriented x3, gait normal and CN's II-XI intact bilaterally Cognition (Neuro): normal cognition Motor exam (neuro): 5/5 motor strength present throughout Psych Appearance: grossly normal Mental Status: mental status grossly normal Speech and movement: Normal speech and movement present Affect: normal affect Attitude: cooperative Thought process: Normal thought process present Thought content: Normal thought content present Insight: Good insight present (Psych) Judgement: Good judgement present (Psych) Assessment & Plan Assessment & Plan (1) Upper abdominal pain: Code(s): R10.10 - Upper abdominal pain, unspecified (2) Visual aura: Code(s): H53.9 - Unspecified visual disturbance (3) Migraine: Comment: visual aura symptoms, paresthesias, worsening dizziness (not always a/w BELL), speech changes, GI s/s. ? migraine w/ aura, ? MUMs, ? vestibular migraine. Code(s): G43.909 - Migraine, unspecified, not intractable, without status migrainosus Plan For overall management: Discussed importance of good self-care, including but not limited to maintaining a healthy diet, adequate fluid intake, adequate sleep, and engaging in regular physical activity. Track headaches. Will take the liberty of referring pt to GI- as pt continues to have bothersome GI s/s, which may be contributing to his migraine and vestibular migraine like symptoms. ? For acute headache treatment: Hold Rizatripatn. Trial Sumatriptan 100mg tab, 1/2 - 1 tab (50-100mg) at onset of headache, may repeat in 2 hours. Max of 2 tabs (200mg) per 24 hours. May adjunct with OTC Tylenol 650mg q 4 hours, Ibuprofen 600mg q 6 hours, or Naproxen 440mg q 12 hrs prn. Previous acute migraine medication trials: Sumatriptan 25-100mg- effective but not tolerated, Rizatriptan- not tolerated. Acute migraine medication contraindications: None at this time ? For headache prevention medication: May continue on Riboflavin 400mg qam May continue on Magnesium 400mg qhs Stop Amitriptyline- not tolerated. Trial Verapamil Er 120mg qhs- pt has had recent normal EKG. Previous migraine prevention medication trials: Amitriptyline- not tolerated. Migraine prevention medication contraindications: None at this time ? Pt to follow-up in 3 months or sooner prn. Orders: Referrals Gastroenterology Referral B37.0 - Candidal stomatitis, K57.92 - Diverticulitis of intestine, part unspecified, without perforation or abscess without bleeding, R10.10 - Upper abdominal pain, unspecified Medications: New verapamil ER 120 mg PO DAILY 30 days 30 caps 3RF ubrogepant (Ubrelvy) take at onset of migraine, may repeat in 2hrs (may take w/ Ibuprofen) 50 - 100 mg (0.5 - 1 x 100 mg) PO ONCE 30 days PRN 16 tabs 3RF migraine headache Coding Level of Care Code Est Pt Level 4 (30766) Diagnoses Upper abdominal pain R10.10 Visual aura H53.9 Migraine G43.909
[2023-05-15 15:39] VITALS: BP 130/78; PULSE 78; O2SAT 98
== END 2023-05-15 16:24 | disposition home or self-care (01) ==
PROVIDERS: Visit Provider Nurse Practitioner Family
DX: R10.10 Upper abdominal pain, unspecified (principal); H53.9 Unspecified visual disturbance; G43.909 Migraine, unspecified, not intractable, without status migrainosus
CPT/HCPCS: 99214

== ENCOUNTER → 2023-05-15 15:24 | Outpatient (BNVA) | payer OTHER, SELFPAY | PROVIDERS: Visit Provider Nurse Practitioner Family ==

== ENCOUNTER → 2023-07-08 15:54 | Outpatient (REF) | payer OTHER, SELFPAY ==
--- NOTE | 2023-07-08 15:56 | CA_ITS ---
Transthoracic Echocardiogram Patient (Last, First, Middle): Giovany Trejo E Gender: Male Date of : 1990 Age: 32 Procedure Date: 07/08/2023 Procedure Type: Transthoracic Echocardiogram Location: OP Height: 182.88 cm Weight: 92.99 kg BSA: 2.15 m2 Heart Rate: 82 bpm BP: 138 / 90 mmHg Tele Marketing Executive: Referring MD: Seb Ma MD Taping Supervisor: Cameron Steve MD Symptoms: R07.2 - Precordial pain Study Quality: Good ECG Rhythm: Sinus Conclusions: - Normal study Findings Left Ventricle Normal left ventricular size, thickness, and systolic function. The visually estimated ejection fraction is between 55-60%. Diastolic function is normal for age. Peak GLS is -19.7%, within normal limits. Right Ventricle Normal right ventricular cavity size and systolic function. Atria Both atria are normal in size. There is no evidence of interatrial shunt. Aortic Valve Normal aortic valve structure and function. There is no aortic valve stenosis. There is no aortic valve regurgitation. Mitral Valve Normal mitral valve structure and function. There is no mitral valve regurgitation. There is no mitral valve stenosis. Pulmonic Valve The pulmonic valve is likely normal. There is trace pulmonic valve regurgitation. Tricuspid Valve Normal tricuspid valve structure. There is trace tricuspid valve regurgitation. The right ventricular systolic pressure is normal. The right ventricular systolic pressure is 19 mmHg. Normal right atrial pressure. There is no evidence of pulmonary hypertension. Great Vessels All visible segments of the aorta are normal in size. The visualized portions of the pulmonary artery and branches are normal. Venous The inferior vena cava is normal in size and collapses greater than 50% with inspiration. Pericardium/Pleural There is no evidence of pericardial effusion. Prior Study Comparison No prior study available for comparison. Measurements 2D Linear Measurements IVSd: 1.08 0.6-0.9/0.6-1.0 cm LVIDd: 4.59 3.9-5.3/4.2-5.9 cm LVIDd Index: 2.13 2.4-3.2/2.2-3.1 cm/m2 LVIDs: 3.00 2.0-3.6 cm LVPWd: 1.06 0.7-1.1 cm Ao Root: 2.90 2.1-3.5 cm LA Diam: 3.50 2.7-3.8/3.0-4.0 cm LAIDs Index: 1.63 1.5-2.3 cm/m2 LV Mass: 216.44 67-162/88-224 g LV Mass Index: 100.67 43-95/49-115 g/m2 LVOT Diam: 2.20 3.0+(-)1.3 cm 2D Systolic Function EF 4C: 63.10 >55% EF 2C: 51.80 >55% EF BiP: 57.40 >55% Mitral Valve MV Pk E: 1.05 MV PK A: 0.71 MV Decel Time: 176.00 E/A: 1.50 E'Lateral: 17.30 E'Medial: 14.10 E/E' Med: 7.40 E/E' Lat: 6.10 PHT: 51.00 MVA PHT: 4.31 Decel Howard: 6.00 Aortic Valve AoV Pk Flako: 1.60 AoV Mn Flako: 1.03 AoV VTI: 0.31 AoV Pk Grad: 10.00 Aov Mn Grad: 5.00 SHIRAZ Cont.VTI: 2.57 LVOT LVOT Pk Flako: 1.15 LVOT Mn Flako: 0.72 LVOT VTI: 0.21 LVOT Pk Grad: 5.00 LVOT Mn Grad: 3.00 LVOT Diam: 2.20 LVOT Area: 3.80 Diastolic Function MV Pk E: 1.05 MV Pk A: 0.71 E/A: 1.50 E'Medial: 14.10 E/E' Med: 7.40 E' Laterial: 17.30 E/E' Lat: 6.10 Right Ventricle TAPSE (mm): 28.00 TVS' Flako: 13.00 Tricuspid Valve TR Pk Flako: 1.97 TR Pk Grad: 16.00 RA Press: 3.00 RVSP: 19.00 Great Vessels Aorta Ao Root-2D: 2.90 2.0-3.7 cm Ao Asc: 2.80 2.1-3.4 cm Pulmonary Valve PV Pk Flako: 1.20 Peak PV Grad: 6.00 Updated in Other Vendor System with Status of Final Cameron Steve MD electronically signed on 07/09/2023 12:34:11 PM with status of Final
== END ==
LOC: HO.CARD 15:54
PROVIDERS: PCP Nurse Practitioner Family; Visit Provider Internal Medicine
DX: R07.2 Precordial pain (principal)
CPT/HCPCS: 93306

== ENCOUNTER → 2023-07-08 15:56 | Outpatient (BNV) | payer OTHER, SELFPAY | PROVIDERS: PCP Nurse Practitioner Family; Visit Provider Internal Medicine Cardiovascular Disease | DX: R07.2 Precordial pain (principal) | CPT/HCPCS: 93306 ==

== ENCOUNTER 2023-12-31 15:00 | Outpatient (AMB) | payer BC, SELFPAY ==
--- NOTE | 2023-12-31 15:00 | AM.OFFWIN_ITS ---
Intake Vital Signs 12/31/23 15:05 Height 6 ft Weight 220 lb BMI 29.8 BP 136/92 H Blood Pressure Location Lt brachial Position Sitting Pulse 94 Pulse Source Pulse Oximeter Temp 97.7 F Temp Source Oral Pulse Oximetry (%) 97 Oxygen Delivery Method Room Air Intake Visit Reasons: abdominal pain, fatigue and dizziness Intake Note: Pt is here today for abd pain, fatigue and dizziness. Pt states symptoms started Patient Tobacco Use Status: Current everyday Tobacco user Allergies cat dander Allergy (Severe, Verified 12/31/23 15:01) Facial Swelling mold Allergy (Intermediate, Verified 12/31/23 15:01) Shortness of Breath weed pollen Allergy (Unknown, Verified 12/31/23 15:01) Unknown Do you need a note to return to daycare/school/sports/work: Yes HPI HPI Comments History of Present Illness Details 33 y/o male patient who presents to walk in clinic with c/o dizziness, abdominal pain and fatigue since Thursday. Reports epigastric region pain associated with nausea and vomiting. Denies Diarrhea but admits to constipation, it has been 2-3 days since last Bowel movement. [facility] Medical History Sinusitis Hospital discharge follow-up Milk alkali syndrome Acute hypokalemia ROSCOE (acute kidney injury) Sinusitis H/O gynecomastia Seasonal allergies Nephrolithiasis Surgical History History of esophagogastroduodenoscopy (EGD) S/P excision of lipoma Family History Maternal Grandfather Liver cancer Paternal Grandmother Cancer of unknown origin Mother No problems noted. 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 Cognitive needs: No Hearing needs: No Vision needs: Yes (glass/contacts) Physical Exam Vital Signs: Last Vital Signs Temp 97.7 F 12/31/23 15:05 Pulse 94 12/31/23 15:05 BP 136/92 H 12/31/23 15:05 Pulse Ox 97 12/31/23 15:05 Oxygen Delivery Method Room Air 12/31/23 15:05 BMI result Body Mass Index 29.8 Const General: comfortable and no acute distress Nutritional Appearance: obese Orientation/consciousness: patient oriented x3 HEENT Head: Yes normocephalic Ears: external ears normal and TM's normal bilaterally Mouth: moist mucous membranes Throat: Yes posterior oropharynx normal Resp Effort & Inspection: normal respiratory effort and able to speak in complete sentences Auscultation: clear to auscultation bilaterally, no crackles, no rales, no rhonchi and no wheezes Cardio Rate: regular rate Rhythm: regular rhythm GI Inspection: No distended Palpation (GI): Soft to palpation, not firm, nontender, no guarding, not rigid and No hepatosplenomegaly present Auscultation: normal bowel sounds Neuro General: patient oriented x3, gait normal and moves all extremities Psych Speech and movement: Normal speech and movement present Results AMB Urinalysis, Automated UA Leukoctes Ilana/uL Last Edit by Carissa Delgado MA on 12/31/23 15:13 UA Nitrite Negative Last Edit by Carissa Delgado MA on 12/31/23 15:13 UA Urobilinogen 0.2 mg/dL Last Edit by Carissa Delgado MA on 12/31/23 15:13 UA Protein mg/dL Last Edit by Carissa Delgado MA on 12/31/23 15:13 UA pH 6.0 Last Edit by Carissa Delgado MA on 12/31/23 15:13 UA Blood Diogenes/uL Last Edit by Carissa Delgado MA on 12/31/23 15:13 UA Specific Motley 1.010 Last Edit by Carissa Delgado MA on 12/31/23 15:1 3 UA Ketone Last Edit by Carissa Delgado MA on 12/31/23 15:13 UA Bilirubin mg/dL Last Edit by Carissa Delgado MA on 12/31/23 15:13 UA Glucose mg/dL Last Edit by Carissa Delgado MA on 12/31/23 15:13 Results Reviewed Results Reviewed: Laboratory Last Values Urine pH (Auto) 6.0 12/31/23 15:12 Specific Motley (Auto) 1.010 12/31/23 15:12 Urine Nitrite (Auto) Negative 12/31/23 15:12 Urine Urobilinogen (Auto) 0.2 mg/dL 12/31/23 15:12 Assessment & Plan Assessment & Plan (1) Abdominal pain: Code(s): R10.9 - Unspecified abdominal pain Qualifiers: Abdominal location: epigastric Qualified Code(s): R10.13 - Epigastric pain Plan: - Increase water intake - avoid spicy, oily foods - OTC Tums - Take medicine as directed. (2) Constipation: Code(s): K59.00 - Constipation, unspecified Qualifiers: Constipation type: slow transit constipation Qualified Code(s): K59.01 - Slow transit constipation Plan: - Increase Fiber intake - Hydrate with water - Take medicine as directed. Medications: New polyethylene glycol 3350 (Miralax) 17 grams PO BID 119 grams 0RF K59.01 - Slow transit constipation sennosides (senna) 8.6 mg PO DAILY PRN 30 caps 0RF constipation K59.01 - Slow transit constipation famotidine 40 mg PO BEDTIME 30 tabs 0RF R10.13 - Epigastric pain Coding Level of Care Code Est Pt Level 3 (69438) Diagnoses Epigastric pain R10.13 Abdominal location: epigastric Slow transit constipation K59.01 Constipation type: slow transit constipation Time Spent (min) 15
[2023-12-31 15:05] VITALS: BP 136/92; PULSE 94; TEMP 36.5; O2SAT 97; BMI 29.8
== END 2023-12-31 15:50 | disposition home or self-care (01) ==
PROVIDERS: PCP Nurse Practitioner Family; Visit Provider Nurse Practitioner Family
DX: R10.13 Epigastric pain (principal); K59.01 Slow transit constipation
CPT/HCPCS: 99213

== ENCOUNTER 2024-09-02 14:06 | Outpatient (REF) | payer BC, SELFPAY ==
--- NOTE | ~2024-09-02 | XR_ITS ---
EXAMINATION: XR CHEST CLINICAL INFORMATION: Upper respiratory infection. COMPARISON: Most recent chest radiograph dated 05/02/2021. TECHNIQUE: Frontal view of the chest was obtained. FINDINGS: The lungs are clear. The cardiomediastinal silhouette is normal in size. There is no pleural effusion or pneumothorax. No acute osseous abnormality. XR/XR chest 1V IMPRESSION: No acute cardiopulmonary findings. Electronically signed by: Sung Pennington MD 09/02/2024 04:17 PM [facility]
== END 2024-09-02 14:07 | disposition home or self-care (01) ==
LOC: HO.HMGCX 14:06
PROVIDERS: PCP Family Medicine; Visit Provider Physician Assistant
DX: J06.9 Acute upper respiratory infection, unspecified (principal)
CPT/HCPCS: 71045

== ENCOUNTER 2024-09-02 14:06 | Outpatient (AMB) | payer BC, SELFPAY ==
[2024-09-02 14:51] VITALS: BP 128/90; PULSE 78; TEMP 36.9; O2SAT 97
--- NOTE | 2024-09-02 14:51 | AM.OFFWIN_ITS ---
Intake Vital Signs 09/02/24 14:51 Weight 104.326 kg BP 128/90 H Blood Pressure Location Rt brachial Position Sitting Pulse 78 Pulse Source Pulse Oximeter Temp 98.5 F Temp Source Oral Pulse Oximetry (%) 97 Oxygen Delivery Method Room Air Intake Visit Reasons: EP Respiratory issues/Sore throat Intake Note: Patient here for chest congestion, difficulty breathing that has been present for about 1 week. Patient Tobacco Use Status: Former Tobacco user Allergies cat dander Allergy (Severe, Verified 09/02/24 14:52) Facial Swelling mold Allergy (Intermediate, Verified 09/02/24 14:52) Shortness of Breath weed pollen Allergy (Unknown, Verified 09/02/24 14:52) Unknown Do you need a note to return to daycare/school/sports/work: No HPI HPI Comments History of Present Illness Details 1458 33 year old male presents w/ fatigue, ma laise, myalgias, congestion, cough, wheezing X 1 week not improving. Multiple sick contacts w/ same sx. Denies fevers, chills, cp, nausea, vomiting, abd pain PE faint b/l LL crackles Hx and pe concerning for bronchitits vs viral illness vs pna . Unlikely, PE, ACS, ARDS. No signs of threat to airway Plan- strep test. Sx >1 week no indication for viral testing. [facility] Medical History Sinusitis Hospital discharge follow-up Milk alkali syndrome Acute hypokalemia ROSCOE (acute kidney injury) Sinusitis H/O gynecomastia Seasonal allergies Nephrolithiasis Surgical History History of esophagogastroduodenoscopy (EGD) S/P excision of lipoma Family History Maternal Grandfather Liver cancer Paternal Grandmother Cancer of unknown origin Mother No problems noted. 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 Oriented X3.? No acute distress.? Head: Normocephalic, atraumatic, no step-offs or deformities Eyes: Pupils equal, round and reactive to light.? CVS: Normal heart rate and rhythm.? Pulses normal.? Respiratory: No respiratory distress.? Breath sounds b/l LL crackles .? Abdomen: Soft and nontender.? Skin: Skin warm and dry.? Normal skin color.? Normal skin turgor.? Extremities: No lower extremity edema.? No calf ttp. 5/5 strength to bilateral upper and lower extremities Neuro: Oriented X 3.? No motor deficit.? No sensory deficit. CN 2-12 intact Assessment & Plan Assessment & Plan (1) Upper respiratory infection: Code(s): J06.9 - Acute upper respiratory infection, unspecified Plan Take your medications as prescribed. If you were prescribed antibiotics today, it is important that you take your medication to their entirety, do not skip any doses, do not finish them early. Follow-up with your primary care provider this week. Return to the emergency department with new or worsening symptoms. In case of emergency call 911 Orders: Orders XR chest 1V Today J06.9 - Acute upper respiratory infection, unspecified Medications: New doxycycline hyclate 100 mg PO BID 7 days 14 caps 0RF albuterol sulfate 90 mcg/actuation 2 puffs inhalation Q6H PRN 6.7 grams 0RF shortness of breath or wheezing prednisone 40 mg (2 x 20 mg) PO DAILY 5 days 10 tabs 0RF benzonatate 100 mg PO BID PRN 14 caps 0RF cough Coding Level of Care Code Est Pt Level 3 (90094) Diagnoses Upper respiratory infection J06.9
== END 2024-09-02 15:26 | disposition home or self-care (01) ==
PROVIDERS: PCP Family Medicine; Visit Provider Physician Assistant
DX: J06.9 Acute upper respiratory infection, unspecified (principal)

== ENCOUNTER 2024-09-09 09:31 | Emergency (ER) | payer BC, SELFPAY ==
[2024-09-09 09:43] VITALS: BP 132/84; PULSE 68; RESP 20; TEMP 36.3; O2SAT 99; BMI 31.8
--- NOTE | 2024-09-09 09:46 | ED.GENADULT ---
HPI - General Adult General Chief complaint: Abdominal Pain Stated complaint: Abd pain Time Seen by Provider: 09/09/24 09:52 Source: patient and old records reviewed Mode of arrival: ambulatory Limitations: no limitations History of Present Illness ED Provider: ARLIN YORK narrative: 33 yo male with PMH of anemia, diverticulitis, anxiety, migraines here with c/o visit to urgent care on 09/02 negative CXR at that time prescribed doxycycline and prednisone he now reports since medications he had an episode of vomiting, upper abdominal discomfort, had some diarrhea as well. He feels it messed his GI track up. He feels weak, chills and feverish. No recent travel, procedures. He already finished both prescriptions. He feels like he is weak and his muscles are aching. MD complaint: viral like illness Onset (ago): day(s) (4) Radiation: non-radiation Severity: moderate Quality: aching Pain Consistency: intermittent Relieving factors: none Exacerbating factors: movement Associated symptoms: loss of appetite, malaise, nausea/vomiting and weakness Treatments prior to arrival: none Related Data Previous Rx's ?Medication ?Instructions ?Recorded albuterol sulfate 90 mcg/actuation 2 puff inhalation Q6H PRN 09/02/24 aerosol inhaler shortness of breath or wheezing #6.7 grams benzonatate 100 mg capsule 100 mg PO BID PRN cough #14 caps 09/02/24 doxycycline hyclate 100 mg capsule 100 mg PO BID 7 days #14 caps 09/02/24 prednisone 20 mg tablet 40 mg (2 x 20 mg) PO DAILY 5 days 09/02/24 #10 tabs famotidine 20 mg tablet (Pepcid) 20 mg PO BID 7 days #14 tabs 09/09/24 ondansetron 4 mg disintegrating 4 mg PO Q8H PRN nausea and 09/09/24 tablet vomiting #20 tabs Allergies Allergy/AdvReac Type Severity Reaction Status Date / Time cat dander Allergy Severe Facial Verified 09/09/24 09:47 Swelling mold Allergy Intermediate Shortness Verified 09/09/24 09:47 of Breath weed pollen Allergy Unknown Unknown Verified 09/09/24 09:47 Review of Systems Review of Systems: Constitutional : No Fever, pos Chills, pos Fatigue ENT/Mouth : No sore throat, No Rhinorrhea Eyes: No Eye Pain, No Swelling, No Redness Cardiovascular : No Chest Pain, No SOB, No Dyspnea on Exertion Respiratory : No Cough, No Sputum Gastrointestinal : pos Nausea, pos Vomiting, pos Diarrhea, pos abdominal Pain Genitourinary : No Dysuria, No Urinary Frequency, No Hematuria, Musculoskeletal : No joint pain, pos Myalgias, No Joint Swelling Skin : No Skin Lesions, No rash Neuro : pos Weakness, No Numbness, No Dizziness, positive Headache Psych : No Anxiety/Panic, No Depression All other systems reviewed and are negative [facility] Past Medical History Attestation statement: The following information was validated with the patient. Source: old records reviewed Medical History Sinusitis Hospital discharge follow-up Milk alkali syndrome Acute hypokalemia ROSCOE (acute kidney injury) Sinusitis H/O gynecomastia Seasonal allergies Nephrolithiasis Surgical History History of esophagogastroduodenoscopy (EGD) S/P excision of lipoma Family History Family History Maternal Grandfather Liver cancer Paternal Grandmother Cancer of unknown origin Mother No problems noted. Father Cardiac disease Hypertension Migraines Brother Asthma Brother Asthma COPD (chronic obstructive pulmonary disease) Social History Social History Household Members: None Housing: Apartment Do you presently have visiting nurse or other home services: No Alcohol intake: never Patient Tobacco Use Status: Former Tobacco user Tobacco use type: Cigarette Cigarette Packs Per Day: 0.5 Cigarettes Per Day: 10 Smoked in Last 30 Days: No e-Cigarette/Vaping Use: Currently Using Second Hand Smoke Exposure: Yes Use of substances other than those prescribed or required for medical reasons: No Advance Directives: No Advance Directives Information Provided: Yes Do you have a plan to hurt others: No Plan service: No Current occupational status: employed 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 Oriented X3. No acute distress. Eyes: Pupils equal, round and reactive to light. ENT: Pharynx normal. Neck: Normal inspection. Neck supple. CVS: Normal heart rate and rhythm. Pulses normal. Respiratory: No respiratory distress. Breath sounds normal. Abdomen: Soft and very mild upper abdominal ttp no rebound not localized and doesn't grimace with palpation Skin: Skin warm and dry. Normal skin color. Normal skin turgor. Extremities: No lower extremity edema. No calf ttp Neuro: Oriented X 3. No motor deficit. No sensory deficit. CN2-12 intact Course Course Course Narrative: RME performed by Kimberly Noland PA-C. Patient is a 33 year old assigned male at presenting to the emergency department with abdominal pain and diarrhea. Patient states he was recently sick with upper respiratory symptoms, started on Doxycycline and Prednisone - finished those yesterday and now he has abdominal pain, nausea, and diarrhea. Detailed physical exam and review of systems are deferred to the admissions clinician. Labs and swabs ordered. Patient placed back in the waiting room pending room availability and results. Medications Administered Generic Name Dose Route Start Last Admin Trade Name Freq PRN Reason Stop Dose Admin Lactated Ringer's 1,000 mls @ 999 mls/hr 09/09/24 10:09/09/24 10:44 Lr IV 09/09/24 11:05 999 mls/hr .Q1H1M ONE Administration Discontinued Medications Generic Name Dose Route Start Last Admin Trade Name Freq PRN Reason Stop Dose Admin Famotidine 20 mg 09/09/24 10:09/09/24 10:33 Famotidine/Pf 20 Mg/2 Ml Vial IVPUSH 09/09/24 10:06 20 mg ONCE ONE Administration Ondansetron HCl 4 mg 09/09/24 10:09/09/24 10:32 Ondansetron Hcl 4 Mg/2 Ml Vial IVPUSH 09/09/24 10:06 4 mg ONCE ONE Administration Medical Decision Making Medical Decision Making MDM Narrative: 33 yo male with PMH of anemia, diverticulitis, anxiety, migraines here with c/o upper abdominal pain n/v/d though v/d seems to have resolved, already finished prednisone and doxy - his CXR was negative. He has diffuse pain, upper abdominal pain starting after medications no GIB symptoms reported he is not toxic and has no signs of acute abdomen at this time basic labs, hydration, pepcid, zofran. Suspect med reaction, gastritis, viral syndrome Differential Diagnosis Differential Diagnoses: The differential diagnosis associated with the presentation includes viral syndrome, dehydration, medication reaction, gastritis Admission/Observation Consideration of admission/observation: Escalation of care including admission/observation considered negative workup stable for DC start on pepcid BID x 1 week Lab Data [facility] Lab Attestation statement: I reviewed the patient's lab results. 09/09/24 10:12 09/09/24 10:12 Labs: Lab Results 09/09/24 09/09/24 Range/Units 10:08 10:12 WBC 6.3 (4.8-10.8) X10*3/uL RBC 4.79 (4.60-5.80) X10*6/uL Hgb 14.2 (14.0-18.0) g/dl Hct 41.2 L (42.0-52.0) % MCV 86.0 (80.0-98.0) fL MCH 29.6 (27.0-33.0) pg MCHC 34.5 (31.0-36.0) g/dl RDW 12.4 (11.0-16.0) % Plt Count 183 (160-400) X10*3/uL MPV 8.4 L (9.4-12.4) fL Immature Gran % (Auto) 0.5 H (0.0-0.4) % Neut % (Auto) 46.6 (45-73) % Lymph % (Auto) 39.7 (20-40) % [place] % (Auto) 8.6 (2-11) % Eos % (Auto) 4.0 (0-4) % Baso % (Auto) 0.6 (0-2) % Lymph # (Auto) 2.5 (1.2-4.9) X10*3/uL [place] # (Auto) 0.5 (0.1-1.2) X10*3/uL Eos # (Auto) 0.3 (0.0-0.4) X10*3/uL Baso # (Auto) 0.0 (0.0-0.2) X10*3/uL Abs Immat Gran (auto) 0.03 (0.00-0.03) X10*3/uL Absolute Neuts (auto) 2.9 (2.0-8.3) x10*3/uL Absolute Nucleated RBC 0.000 (0.0-0.012) X10*3/uL Nucleated RBC % (auto) 0.0 (0.0-0.2) /100WBC Sodium 138 (135-145) mmol/L Potassium 4.2 (3.3-5.1) mmol/L Chloride 107 (96-108) mmol/L Carbon Dioxide 25 (22-29) mmol/L Anion Gap 10 L (12-20) BUN 15 (9-16) mg/dL Creatinine 0.96 (0.5-1.4) mg/dL Estim Creat Clear Calc 136.6 Estimated GFR > 60 Random Glucose 95 (60-115) mg/dL Calcium 8.9 D (8.4-10.2) mg/dL Magnesium 2.5 (1.6-2.6) mg/dL Total Bilirubin 0.4 (0.0-1.0) mg/dL AST 27 (5-37) U/L ALT 36 (0-40) U/L Alkaline Phosphatase 57 (39-117) U/L Total Protein 6.8 (6.5-8.0) g/dL Albumin 4.3 (3.5-5.0) g/dL Lipase 27 (8-78) U/L Urine Color Yellow Urine Appearance Clear Urine pH 7.0 (5.0-9.0) Ur Specific [place] <= 1.005 (1.005-1.025) Urine Protein Negative (Neg-Trace) mg/dL Urine Glucose (UA) Negative (Negative) mg/dL Urine Ketones Negative (Negative) mg/dL Urine Blood Negative (Negative) Urine Nitrite Negative (Negative) Ur Leukocyte Esterase Negative (Negative) Influenza Type A (PCR) NEGATIVE (Negative) Influenza Type B (PCR) NEGATIVE (Negative) RSV RNA Qual (PCR) NEGATIVE (Negative) SARS-CoV-2 RNA (RT-PCR) NEGATIVE (Negative) External Record Review External record reviewed: Outpatient record Prescription Management I considered prescription management with: Other Discharge Plan Discharge Clinical Impression: Gastritis Qualifiers: Gastritis type: unspecified gastritis Chronicity: acute Gastritis bleeding: without bleeding Qualified Code(s): K29.00 - Acute gastritis without bleeding Patient Disposition: Home, Self-Care Instructions: Gastritis (ED) Additional Instructions: negative viral panel - covid, flu, rsv labs reassuring bland diet and avoid NSAIDs for 2 weeks - tylenol is okay return for any worsening symptoms increased pain cannot eat or drink, GI bleeding or any other concerns pepcid for 1 week as discussed Prescriptions: New ondansetron 4 mg tablet,disintegrating 4 mg PO Q8H PRN (Reason: nausea and vomiting) Qty: 20 0RF famotidine [Pepcid] 20 mg tablet 20 mg PO BID 7 Days Qty: 14 0RF No Action doxycycline hyclate 100 mg capsule 100 mg PO BID 7 Days Qty: 14 0RF benzonatate 100 mg capsule 100 mg PO BID PRN (Reason: cough) Qty: 14 0RF albuterol sulfate 90 mcg/actuation HFA aerosol inhaler 2 puff inhalation Q6H PRN (Reason: shortness of breath or wheezing) Qty: 6.7 0RF prednisone 20 mg tablet 40 mg PO DAILY 5 Days Qty: 10 0RF Print Language: Swiss
[2024-09-09 09:58] VITALS: BP 126/77; PULSE 65; RESP 16; TEMP 36.5; O2SAT 99
--- NOTE | 2024-09-09 10:09 | PC.NURSE ---
Pt comes to ED today with c/o ongoing URI sxs but now has abd pain to his upper quadrants. Pt states he was seen at urgent last week and treated for an URI with doxycycline, prednisone, and an inhaler. He now reports upper abd pain 5/10 that is burning/pressure in nature. C/o nausea without vomiting and wavering symptoms of diarrhea and constipation. Pt reports a (+) hx diverticulitis and thinks perhaps the Abx may have triggered this. A&Ox3, VSS, afebrile. Skin is warm and dry Breaths and speech are unlabored. Facial symmetry noted. Awaiting blood lab and urine spec results.
--- OUTSIDE RECORDS SUMMARY | 2024-09-09 10:11 | XMS_ITS | Data Portability ---
Author Organization [facility], [place] Address [address] [place] [id number] Care Team Providers Care Gel Coater Name Role Phone VASU COOLEY Referring Provider Un available VASU COOPER Referring Provider [facility] OTHER Assessment Encounter Date Assessment Date Assessment LastModified by Organization Details LastModified Time 07/08/2021 07/08/2021 IMPRESSION: August 2021 onset of continuous fluctuating dizzy out of body right arm predominant upper extremity sensation; and early April 2021 onset of staticky, Novocain-like right face arm and leg continuous altered sensation, context normal sensation of light touch in these regions, slightly dulled sensation of pinprick at least in the right hand where he feels this sensation. The rest of the neurological exam is essentially normal. Reflexes are brisk with moderate crossed adductors but these are symmetric and therefore likely within normal variation. His symptoms are predominantly right-sided. An inflammatory left-sided lesion in the brain sensory regions is not excluded such as 1 would see most commonly for multiple sclerosis. The differential includes a disassociative motor and sensory disorder, triggered by unconscious anxiety. He has discussed anxiety with primary care who has said that at least the symptoms relating to his 3 emergency room visits are likely related to anxiety attacks. He has not had previous diagnoses relating to anxiety. He has noticed no increased stressors before June, August or April onset of his 3 types of abnormal symptomatology. We discussed studies for the first of the above 2 possible diagnoses. He has already had brain MRI ordered by ENT. We will get the appropriate lab work. He would like to follow-up with us whether or not the MRI is normal. At that time we will discuss the lab work and decide which way to branch depending on the MRI, between the above 2 diagnostic possibilities. PLAN Giovany Trejo July 08, 2021 Please do this blood work at your earliest convenience at your normal [facility] reference laboratory in [place] [facility] B12 studies, Lyme titer Please ask your ENT to send the results of the brain MRI to me. Follow-up in 5 weeks [email or web address] Not available 07/08/2021 12:25:43 08/15/2021 08/15/2021 IMPRESSION: --August 2021 onset of continuous fluctuating dizzy out of body right arm predominant upper extremity sensation; and early April 2021 onset of staticky, Novocain-like right face arm and leg continuous altered sensation, context normal sensation of light touch in these regions. -- slightly dulled sensation of pinprick at least in the right hand where he feels this sensation. The rest of the neurological exam is essentially normal. Reflexes are brisk with moderate crossed adductors but these are symmetric and therefore likely within normal variation. --Timing of onset of symptomatology described differently today versus at initial consultation --No sense by the patient that anxiety might be involved. DATA REVIEWED IMAGING Brain MRI with and without contrast June 28, [address] 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 Otherwise, no brain abnormalities are noted. 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 LAB[facility] July 30, 2021 MMA 139, Folate 7.8 vitamin B12 1399, homocystine 15.4, Lyme titer negative We discussed that the venous anomaly is in all likelihood harmless and in all likelihood unrelated to his presenting symptomatology. He understands. He reiterates that his right face arm and leg have the same type of sensation. He does not disagree when I say that a likely inference is that they come from the same phenomenon. No other location but the brain can be a unifying single localization for face arm and leg symptoms. I therefore do not believe there is a unifying central nervous system explanation for his symptoms. I suggested the possibility out of abundance of caution that perhaps arm and leg symptoms are unified but the face is not. In this case we could pursue MRI cervical spine imaging. Alternatively, he has some asymmetric tenderness, more on the right, and levator scapula and sternocleidomastoid. There is some referral to his presenting symptoms, suggestive but not highly so, with palpation of these locations. The tenderness might just be reactive to his symptoms. On the other hand there could be a primary myofascial syndrome. We discussed physical therapy versus further imaging focusing on the cervical spine. He chose physical therapy. The differential continues to include a disassociative motor and sensory disorder, triggered by unconscious anxiety. He does not notice unusual anxiety. This is in the context of our discussion July 08, 2021: He has discussed anxiety with primary care who has said that at least the symptoms relating to his 3 emergency room visits are likely related to anxiety attacks. He has not had previous diagnoses relating to anxiety. He has noticed no increased stressors before June, August or April onset of his 3 types of abnormal symptomatology. PLAN Giovany Trejo August 15, 2021 Physical therapy for possibility of myofascial syndrome related to for abnormal sensations in right face arm and leg, tender right sternocleidomastoid but no clear referral, levator scapula possibly with related referral; please assess for myofascial syndrome related to abnormal right-sided sensations. Nasrin Pastrana MBA, PT [address] [address] [email or web address] We will send a referral to the physical therapist for physical therapy. It is your responsibility to make the initial phone call to the above number to set up an initial appointment Follow-up in [address] Fazal Spring [facility] [email or web address] Not available 08/15/2021 08:56:46 Plan of Treatment Reminders Order Date Submit Date Provider Last Modified By Organization Details Last Modified Time Details Appointments None recorded. Lab lyme antibody screen, EIA/santa, serum - A69.20 2020 021 [email or web address] [facility], [address], [address], 2 13:14:08 homocystein e, serum or plasma - D51.9 2020 021 FAREED [facility], [address] [address], [place], [address], 16:56:07 mma (methylmalo pili acid), serum - D51.9 2020 021 FAREED [facility], [address], [address], 02:06:10 vitamin B12, serum - d51.9 2020 021 FAREED [facility], [address], [address], 18:58:43 folate, serum - d51.9 2020 021 FAREED [facility], [address], [address], 18:58:44 Referral neurologic physical therapist referral - for possibility of myofascial syndrome related to for abnormal sensations in right face arm and leg, tender right sternocleid omastoid but no clear referral, levator scapula possibly with related referral; please assess for myofascial syndrome related to abnormal right-sided sensations. Brain MRI unrevealing 2020 layo 1 Nasrin Pastrana PT, [address] [place] [address], [address], 2 11:59:19 Procedures None recorded. Surgeries None recorded. Imaging None recorded. Medication Orders None recorded. Patient TargetsNo targets recorded. Patient InstructionsNo instructions recorded. Reason for Referral for possibility of myofascia l syndrome related to for abnormal sensations in right face arm and leg, tender right sternocleidomastoid but no clear referral, levator scapula possibly with related referral; please assess for myofascial syndrome related to abnormal right-sided sensations. Brain MRI unrevealing Referring Physician: Fazal Spring, Neurology, Encounter Date: 08/15/2021 Results Created Date Observation Date Name Description Value Unit Range Abnormal Flag Note LastModifiedBy Organization Detail LastModifiedTime 07/30/20 21 07/30/2021 HOMOC YSTEI NE, PLASM A homocysteine , plasma 15.4 umol/ L (0-15) high Effec tive , homoc ystei ne assay has been gann ed. The new refer ence range s(s) corre spond to the new assay . Not Available [facility] [address], [address], 07/30/2021 16:56:06 07/30/20 21 07/30/2021 VITAM IN B12 vitamin B12 1399 pg/mL (232-1 245) high Not Available [facility] [address], [address], 07/30/2021 18:58:43 07/30/20 21 07/30/2021 FOLIC ACID folic acid 7.8 NG/mL (4.5-3 2.2) Not Available [facility] [address], [place], [address], 07/30/2021 18:58:44 07/30/20 21 08/06/2021 LYME AB W/REF YADI lyme Ab w/reflex (neg) NEGAT JAE NO ANTIB TYLER TO BORRE LLIA BURGD ORFER I DETEC MAYRA. PATIE NTS IN EARLY STAGE S OF INFEC TION OR WHO WERE GIVEN EARLY ANTIB IOTIC TREAT MENT MAY NOT PRODU CE DETEC TABLE LEVEL S OF ANTIB TYLER. THESE PATIE NTS WOULD BENEF IT FROM REPEA T TESTI NG IN 2 TO 4 WEEKS . Testi ng perfo rmed by the [employer] [facility] ex 2200 multi plex flow immun oassa y syste m Not Available [facility] [address], [place], [address], 08/06/2021 10:37:56 07/30/20 21 08/07/2021 METHY LMALO PILI ACID, SERUM methylmaloni c acid, serum 139 Refer ence range : 0 to 378 Unit: nmol/ L Test perfo rmed at [facility] [place] , [address] [facility] , [place] [address] Not Available [facility] [address] [place], [address], 08/07/2021 02:06:09 07/09/20 21 06/28/2021 MRI, brain , w/wo contr ast No observ ation record ed. [email or web address] [facility] [place] [address] [place] [address], [address], 07/15/2021 11:56:11 07/09/20 21 07/09/2021 MRI, brain , w/wo contr ast No observ ation record ed. [email or web address] Not Available 07/15 11:57:33 Result Notes None recorded. Procedures Surgical History Date Name Laterality Status Provider Name and Address Organization Details Recorded Time 08/15/2021 DATA REVIEW completed Fazal Spring MD [address] [place] [address], [phone], [facility] 08/15/2021 08:50:16 Imaging Results Imaging Date Name Status LastModified by Organiz ation Details LastModified Time 06/28/2021 MRI, brain, w/wo contrast completed [email or web address] [facility] [place] [address], [address], 07/15/2021 11:56:11 07/09/2021 MRI, brain, w/wo contrast completed [email or web address] Information not available 07/15/2021 11:57:33 Procedure Notes None recorded. Medical Equipment None Reported. Allergies No known drug allergies Medications Name Sig Start Date Stop Date Status Note LastModified by Organization Details LastModified Time cyclobenzaprine 10 mg tablet active Not Available Not Available Not Available fluconazole 100 mg tablet active Not Available Not Available No t Available prednisone 10 mg tablet active Not Available Not Available Not Available doxycycline hyclate 100 mg capsule active Not Available Not Available Not Available azithromycin 250 mg tablet active Not Available Not Available No t Available prednisone 20 mg tablet active Not Available Not Available Not Available amoxicillin 875 mg tablet active Not Available Not Available No t Available famotidine 20 mg tablet active Not Available Not Available Not Available nicotine (polacrilex) 4 mg gum active Not Available Not Available Not Available meclizine 25 mg tablet active Not Available Not Available Not Available diclofenac sodium 50 mg tablet,delayed release active Not Available Not Available Not Available ondansetron 4 mg disintegrating tablet active Not Available Not Available Not Available fluticasone propionate 50 mcg/actuation nasal spray,suspension active Not Available Not Avail able Not Available amoxicillin 875 mg-potassium clavulanate 125 mg tablet active Not Available Not Available No t Available azithromycin 500 mg tablet active Not Available Not Available No t Available cyclobenzaprine 5 mg tablet active Not Available Not Available No t Available Vitals Date Recorded Body height Body mass index (BMI) Body weight Respiratory rate Provider Name and Address Organization Details Last Updated DateTime 07/08/2021 182.88 cm 31.2 kg/m2 397525.2 5 g 12 /min [facility] 07/08/2021 11:01:58 Social History Question Answer Notes LastModified by Organizat ion Details LastModified Time Tobacco Smoking Status Current Every Day Smoker [facility] 07/08/2021 11:07:25 What Is Your Level Of Alcohol Consumption? None Information not available 07/08/2021 What Is Your Level Of Caffeine Consumption? Heavy Information not available 07/08/2021 What Is The Highest Grade Or Level Of School You Have Completed Or The Highest Degree You Have Received? [id number] Information not available 07/08/2021 Which Of Your Hands Is Dominant? Right Information not available 07/08/2021 What Is Your Relationship Status? Single Information not available 07/08/2021 How Much Tobacco Do You Smoke? 0.5 PPD Information not available 07/08/2021 Sex: Unknown Functional Status None recorded. Mental Status None recorded. Family History Relationship Description Onset Age of this Age Resolved Age Notes LastModified by Organization Details LastModified Time Maternal Grandfather Dementia [email or web address] Not available 07/08/2021 11:02:28 Father Headache [email or web address] Not avail able 07/08/2021 11:02:39 Father Heart disease [email or web address] Not available 09/2020 11:03:53 Medical History Condition Response Heartburn, acid reflux, GERD Y Headaches Y Depression Y Past Encounters Encounter ID Performer Location Encounter Start Date Encounter Closed Date Diagnosis/Indication Diagnosis SNOMED-CT Code Diagnosis ICD10 Code [id number] Fazal Spring MD [facility] [address] [place] [address] [place] [address] 07/08/2021 10:53:07 07/08/2021 12:29:49 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 Multiple sclerosis 11535 007 G35 [id number] Fazal Spring MD [facility] [address] [place] [address] [place] [address] 08/15/2021 08:00:19 08/15/2021 09:30:52 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 88734963 G24.1 Dystonia 83141931 G24.3 Health Concerns Section Related Observation LastModified by Organization Detai ls LastModified Time None Recorded Concern Status LastModified by Organization Details LastModified Time None Recorded Advance Directives Directive None Recorded Payers Encounter Date Sequence Insurance Name Policy Number Policy Castillo Covered Member ID Castillo Member ID Guarantor Name 07/08/2021 1 [facility] Giovany Trejo [id number] Giovany Trejo 08/15/2021 1 [facility] Giovany Trejo [id number] Giovany Trejo Notes Date Note Type Note Provider Name and Address Organization Details Recorded Time 07/08/2021 text/html He presents for initial neurology consultation for assessment and management of altered sensations of 3 different types, the first type beginning late June 2021. 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 Santios t a year ago to the day, he had his first of 3 episodes of palpitations. The first episode was not accompanied by any other symptoms but he feared heart attack and presented to the emergency room. Cardiac work-up was normal. He had 2 more events spread out over July and the beginning of August of palpitations, these also accompanied by a feeling that he was just going to drop, pass out? ? But he never did; and really bad abdominal pain? ? Not really nausea, but bad pain. Work-up at both latter emergency room visits was unrevealing. He took time off work through the end of August because of these events. They have not re-occurred.However, towards the end of August his abnormal sensations turned into a very different type of sensation, a dizzy and feeling that he describes more specifically as an out of body sensation, a sensation that where he feels that he places his arm in space is not actually where his arm physically is moving toward. He makes an analogy to putting ones hand in water where visually guiding your hand does not lead to the target accurately. He spontaneously mentions that he associates dropping objects in his hands, predominantly in his right hand, with this feeling. When I ask if he sometimes mishap her hands where an object is and then does not pick it up properly he says this is also part of this symptom? this only happens with his right upper extremity. However he feels the out of body feeling more broadly throughout his arms and upper torso even with turning his torso from one to another side. These feelings with his right upper extremity and upper extremities and torso more broadly, have continued daily, continuously, fluctuating like a wave. He takes Benadryl sometimes and it kind of numbness this abnormal sensation but does not eliminate it. There has been no improvement or worsening since onset.Around the beginning of April, about 3 months ago, he developed a third distinct abnormal sensation, 1 of sensation loss, like Novocain, you can still feel it but there is a static, tingling xwmn-oaj-jsxnaoy character. The sensation began in the right side of his face. However it soon extended through his right upper extremity from shoulder to the tips of his fingers and, milder? ? A little pronounced in his right lower extremity. This has also continued daily and continuous and also fluctuates like a wave. He can think of nothing that makes it better or worse, no triggers. It has reduced in prominence in recent times compared to the prominence at the beginning of the sensation in April 2021. Fazal Spring MD [address] [place] [address] [place], [phone], [facility] 07/08/2021 12:25:48 08/15/2021 text/html Follow up of alt ered sensations of 3 different types, the first type beginning late June 2021. 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 He provides additional/new details. The dizzy and out of body sensation which was first to emerge was much more prominent at the beginning, enough so that he would have to sit down occasionally because of its intensity. He now feels that the arm symptomatology started next about a month later. Right arm symptoms did not start with different intensity than currently, were continuous then and remained continuous, and the intensity has fluctuated but has not changed since. He also now feels that the less prominent and intermittent face and leg symptoms started ~October 2020; they also have fluctuated but have not changed. His face symptoms are most appreciated if he touches his face with his hand although he can sometimes feel that something is different in the right side of his face even without touching. He has no such abnormal sensation touching the left side of his face with his hand.2 weeks ago he had an emergency room visit with presenting symptoms including abdominal symptoms and was diagnosed with diverticulitis.He has discussed anxiety with other healthcare providers. He does not have a formal diagnosis. He himself does not feel his level of anxiety is different from normal. Presenting symptomatology is reviewed from July 08, 2021 neurology consultation: Almost a year ago to the day, he had his first of 3 episodes of palpitations. The first episode was not accompanied by any other symptoms but he feared heart attack and presented to the emergency room. Cardiac work-up was normal. He had 2 more events spread out over July and the beginning of August of palpitations, these also accompanied by a feeling that he was just going to drop, pass out? ? But he never did; and really bad abdominal pain? ? Not really nausea, but bad pain. Work-up at both latter emergency room visits was unrevealing. He took time off work through the end of August because of these events. They have not re-occurred.However, towards the end of August his abnormal sensations turned into a very different type of sensation, a dizzy and feeling that he describes more specifically as an out of body sensation, a sensation that where he feels that he places his arm in space is not actually where his arm physically is moving toward. He makes an analogy to putting ones hand in water where visually guiding your hand does not lead to the target accurately. He spontaneously mentions that he associates dropping objects in his hands, predominantly in his right hand, with this feeling. When I ask if he sometimes mishap her hands where an object is and then does not pick it up properly he says this is also part of this symptom? this only happens with his right upper extremity. However he feels the out of body feeling more broadly throughout his arms and upper torso even with turning his torso from one to another side. These feelings with his right upper extremity and upper extremities and torso more broadly, have continued daily, continuously, fluctuating like a wave. He takes Benadryl sometimes and it kind of numbness this abnormal sensation but does not eliminate it. There has been no improvement or worsening since onset.Around the beginning of April, about 3 months ago, he developed a third distinct abnormal sensation, 1 of sensation loss, like Novocain, you can still feel it but there is a static, tingling ekhh-myf-nofaxzx character. The sensation began in the right side of his face. However it soon extended through his right upper extremity from shoulder to the tips of his fingers and, milder? ? A little pronounced in his right lower extremity. This has also continued daily and continuous and also fluctuates like a wave. He can think of nothing that makes it better or worse, no triggers. It has reduced in prominence in recent times compared to the prominence at the beginning of the sensation in April 2021. Fazal Spring MD [address] [place] [address] [place], [phone], [facility] 08/15/2021 08:57:22
[2024-09-09 10:17] LABS: MANUAL DIFF FLAG NO
[2024-09-09 10:19] LABS: Basophils Percent Auto 0.6 % (0-2); Eosinophils Absolute Auto 0.3 X10*3/uL (0.0-0.4); Hematocrit 41.2 % (42.0-52.0); Hemoglobin 14.2 g/dl (14.0-18.0); Imm Gran Abs Auto 0.03 X10*3/uL (0.00-0.03); Imm Gran Pct Auto 0.5 % (0.0-0.4); Lymphocytes Absolute Auto 2.5 X10*3/uL (1.2-4.9); Lymphocytes Percent Auto 39.7 % (20-40); Mean Corpuscular HGB Conc 34.5 g/dl (31.0-36.0); Mean Corpuscular Hemoglobin 29.6 pg (27.0-33.0); Mean Platelet Volume 8.4 fL (9.4-12.4); Monocytes Absolute Auto 0.5 X10*3/uL (0.1-1.2); Monocytes Percent Auto 8.6 % (2-11); Neutrophils Absolute Auto 2.9 x10*3/uL (2.0-8.3); Neutrophils Percent Auto 46.6 % (45-73); Platelet Count 183 X10*3/uL (160-400); Red Blood Count 4.79 X10*6/uL (4.60-5.80); Red Cell Distribution Width 12.4 % (11.0-16.0); White Blood Count 6.3 X10*3/uL (4.8-10.8)
[2024-09-09 10:20] LABS: Appearance Urine Clear; Color Urine Yellow; Glucose Urine UA Negative (Negative); Leukocyte Esterase Urine Negative (Negative); Nitrite Urine Negative (Negative); Specific Gravity - Urine <= 1.005 (1.005-1.025); Urine Blood Negative (Negative); Urine Ketones Negative (Negative); Urine Protein Negative (Neg-Trace)
[2024-09-09] MEDS: ondansetron HCL 4 MG/2 ML VIAL IVPUSH (10:32)
[2024-09-09] MEDS: Famotidine/PF 20 MG/2 ML VIAL IVPUSH (10:33)
[2024-09-09 10:37] LABS: Alanine Aminotransferase 36 U/L (0-40); Albumin Level 4.3 g/dL (3.5-5.0); Alkaline Phosphatase 57 U/L (39-117); Anion Gap 10 (12-20); Aspartate Amino Transferase 27 U/L (5-37); Bilirubin Total 0.4 mg/dL (0.0-1.0); Blood Urea Nitrogen 15 mg/dL (9-16); Calcium 8.9 mg/dL (8.4-10.2); Carbon Dioxide 25 mmol/L (22-29); Chloride 107 mmol/L (96-108); Creatinine Clr Calc Pharmacy 136.6; Estimated Glomerular Filt Rate > 60; Glucose Random 95 mg/dL (60-115); Lipase 27 U/L (8-78); Magnesium 2.5 mg/dL (1.6-2.6); Potassium 4.2 mmol/L (3.3-5.1); Sodium 138 mmol/L (135-145); Total Protein 6.8 g/dL (6.5-8.0)
[2024-09-09] MEDS: Lactated Ringers 1,000 ML 999 ML IV (10:44)
[2024-09-09 10:56] LABS: Influenza A PCR NEGATIVE (Negative); Influenza B PCR NEGATIVE (Negative); Resp Syncy Virus RNA Qual PCR NEGATIVE (Negative); SARS COV2 PCR INHOUSE NEGATIVE (Negative)
[2024-09-09 12:14] VITALS: BP 107/75; PULSE 63; RESP 16; TEMP 36.5; O2SAT 99
[2024-09-09 12:16] VITALS: BP 107/75; PULSE 63; RESP 16; TEMP 36.5; O2SAT 99
== END 2024-09-09 12:36 | disposition home or self-care (01) ==
PROVIDERS: Physician Assistant Medical; Emergency Provider Emergency Medicine; PCP Family Medicine
DX: K29.00 Acute gastritis without bleeding (principal); R11.2 Nausea with vomiting, unspecified; Z03.818 Encounter for observation for suspected exposure to other biological agents ruled out
CPT/HCPCS: 0241U; 80053; 81003; 83690; 83735; 85025; 96361; 96374; 96375; 99284; J2405; J7120

== ENCOUNTER 2024-12-14 13:26 | Outpatient (AMB) | payer BC, SELFPAY ==
--- NOTE | 2024-12-14 13:30 | A.OFFVIS_ITS ---
Vital Signs 12/14/24 13:31 Height 6 ft Weight 238 lb BMI 32.3 BP 110/80 Blood Pressure Location Lt brachial Position Sitting Pulse 95 Pulse Source Pulse Oximeter Pulse Oximetry (%) 96 Oxygen Delivery Method Room Air Intake Visit Reasons: Follow up Intake Note: Patient presents follow up migraine medication. GI-no appointment Comprehensive Ophthalmologist Required: No Accompanied by: Self / Same As Patient Allergies cat dander Allergy (Severe, Verified 12/14/24 13:31) Facial Swelling mold Allergy (Intermediate, Verified 12/14/24 13:31) Shortness of Breath weed pollen Allergy (Unknown, Verified 12/14/24 13:31) Unknown Medication List - Last Reconciled 12/14/24 by POORNIMA Orellana albuterol sulfate 90 mcg/actuation 2 puffs inhalation Q6H PRN benzonatate 100 mg PO BID PRN lisinopril 5 mg PO DAILY ubrogepant (Ubrelvy) 50 - 100 mg (0.5 - 1 x 100 mg) PO ONCE PRN 30 days HPI Comments Details: 34-yr-old male presents for f/u visit of possible vestibular migraine. Patient was last seen here on 05/15/2023. Pt denies any significant interval medical changes. He continues to feel a persistent disorienting brain fog a/w visual-spatial distortion (things feel neraer/closer than they really are) and not right in space evrtigo, sometimes head pain- but not too much, confused feeling, photophobia, feels like his nervous system is or not communicating with the rest of his body, need to lay down/activity intolerance. This is constant, but intensity varies. Aggravated by artificial lights. Since the last visit, he has tried Fioricet- which makes him more sleepy. Also since the last visit, he was started on p.r.n. Ubrelvy- helped him sleep, but made his brain feel like soup . His PCP started him on lisinopril for HTN, but not using regularly as his BP is better. He has completely stopped smoking. He reports his GI s/s have improved since he started a low Fod-map diet, which he has maintained. He previously had cardiology consult- they felt his his s/s were not felt to be cardiogenic. Was also told he had recent EBV infection- by [facility]. Since, he has not had intense headache. However he still has constant sensitivity and spatial perception dizziness. His father has h/o classic migraine. [facility] Medical History Sinusitis Hospital discharge follow-up Milk alkali syndrome Acute hypokalemia ROSCOE (acute kidney injury) Sinusitis H/O gynecomastia Seasonal allergies Nephrolithiasis Surgical History History of esophagogastroduodenoscopy (EGD) S/P excision of lipoma Family History Maternal Grandfather Liver cancer Paternal Grandmother Cancer of unknown origin Mother No problems noted. 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 Cognitive needs: No Hearing needs: No Vision needs: Yes (glass/contacts) Physical Exam Vital Signs: Last Vital Signs Pulse 95 12/14/24 13:31 BP 110/80 12/14/24 13:31 Pulse Ox 96 12/14/24 13:31 Oxygen Delivery Method Room Air 12/14/24 13:31 BMI result Body Mass Index 32.3 Const General: cooperative and no acute distress Orientation/consciousness: patient oriented x3 HEENT Head: Yes normocephalic Resp Effort & Inspection: normal respiratory effort and able to speak in complete sentences Neuro Other: Photophobic General: patient oriented x3, gait normal and CN's II-XI intact bilaterally Cognition (Neuro): normal cognition Motor exam (neuro): 5/5 motor strength present throughout Psych Appearance: grossly normal Mental Status: mental status grossly normal Speech and movement: Normal speech and movement present Affect: normal affect Attitude: cooperative Thought process: Normal thought process present Thought content: Normal thought content present Insight: Good insight present (Psych) Judgement: Good judgement present (Psych) Assessment & Plan Assessment & Plan (1) Visual aura: Code(s): H53.9 - Unspecified visual disturbance Category: Medical (2) Migraine: Comment: visual aura symptoms, paresthesias, worsening dizziness (not always a/w BELL), speech changes, GI s/s. ? migraine w/ aura, ? MUMs, ? vestibular migraine. Code(s): G43.909 - Migraine, unspecified, not intractable, without status migrainosus Category: Medical (3) Vertigo: Code(s): R42 - Dizziness and giddiness Category: Medical (4) Vestibular migraine: Code(s): G43.809 - Other migraine, not intractable, without status migrainosus Category: Medical Plan For overall management: Continue to optimize good self-care, including but not limited to maintaining a healthy diet, adequate fluid intake, adequate sleep, and engaging in regular physical activity. Track vertigo/headache symptoms. We will request PT eval and treat for vestibular therapy- order slip given to patient. Follow-up with the GI as scheduled Future considerations: ENT consult at [facility] for 2nd opinion. ? For acute headache treatment: Continue Ubrogepant (Ubrelvy) 100mg tab, 1/2 - 1 tab (50-100mg) at onset of headache, may repeat in 2 hours. Max of 2 tabs (200mg) per 24 hours. May adjunct with OTC Tylenol 650mg q 4 hours, Ibuprofen 600mg q 6 hours, or Naproxen 440mg q 12 hrs prn. Do not take w/ Butalbital (Fioricet or Fiorinal). Potential adverse effects, include but are not limited to fatigue, nausea, dry mouth, constipation Previous acute migraine medication trials: Sumatriptan 25-100mg- effective but not tolerated, Rizatriptan- not tolerated. Acute migraine medication contraindications: None at this time ? For headache prevention medication: Riboflavin 400mg qam Magnesium 400mg qhs Trial doxepin 10 mg daily at 19:00. (patient usual wake-up time is 05:00) Previous migraine prevention medication trials: Amitriptyline- not tolerated. Verapamil ER-ineffective. Migraine prevention medication contraindications: None at this time ? Pt to follow-up in 3 months or sooner prn. Orders: Orders PT Evaluation and Treatment Today G43.809 - Other migraine, not intractable, without status migrainosus, R42 - Dizziness and giddiness Medications: New doxepin At 19:00 10 mg PO DAILY 30 days 30 caps 3RF itching Coding Level of Care Code Est Pt Level 4 (58510) Diagnoses Visual aura H53.9 Migraine G43.909 Vertigo R42 Vestibular migraine G43.809
[2024-12-14 13:31] VITALS: BP 110/80; PULSE 95; O2SAT 96; BMI 32.3
--- OUTSIDE RECORDS SUMMARY | 2024-12-14 15:57 | XMS_ITS | Clinical Summary ---
Author Organization [facility] Address [address] [place] [id number] Phone Care Team Providers Care Blog Writer Name Role Phone Unavailable Primary Care Provider Unavailabl e Immunizations Immunization Administration Dates Next Due DTP 09/25/1994, 1,06/01/1990,04/05,02/05/1990 Hep B, ped/adol 05/20/2002,07/28/2001,07/01/2001 Hib (PRP-T) 08/26/1991,03/07/1991,11/29/1990 IPV 09/25/1994, 1,04/05/1990,02/05 MMR 05/07/1995,03/07/1991 Meningococcal Conj (Menactra) MCV4P 02/10/2007 Td (adult) (MBL), 2 Lf tetan us toxoid, PF, adsorbed 05/20/2002 Tdap 02/10/2007 Varicella 12/05/1993 Family History Relation Name Status Comments Brother 1 Alive Brother: Alive and well, Alive and well Brother 2 Alive Brother: Alive and well, Alive and well Father Alive Father: Alive a nd well Mother Alive Mother: Alive a nd well Social History Tobacco Use Types Packs/Day Years Used Date Smoking Tobacco: Never Assessed Sex and Gender Information Value Date Recorded Sex Assigned at Not on file Legal Sex Male 4:25 PM EDT Gender Identity Not on file Sexual Orientation Not on file Plan of Treatment Health Maintenance Due Date Last Done Comments Varicella Vaccines (2 of 2 - 2-dose childhood series) 06/04/1995 12/05/1993 Hepatitis B Vaccines (3 of 3 - 3-dose series) 07/15/2002 05/20/2002, 07/28/2001, 07/01/2001 DTaP,Tdap,and Td Vaccines (7 - Td or Tdap) 02/10/2017 02/10/2007, 05/20/2002, 09/25/1994, Additional history exists Influenza Vaccines (#1) 2024 COVID-19 Vaccine (2023- season) 2024 HIB Vaccines Completed 08/26/1991, 09/1990, 11/29/1990 IPV Vaccines Completed 09/25/1994, 05/1991, 04/05/1990, Additional history exists MMR Vaccines Completed 05/07/1995, 03/07/1991 Meningococcal Vaccine Completed 02/10/2007 HPV Vaccines Aged Out No longer eligi ble based on patient's age to complete this topic Hepatitis A Vaccines Aged Out No long er eligible based on patient's age to complete this topic Men B Vaccine Aged Out No longer elig ible based on patient's age to complete this topic Pneumococcal Vaccine Aged Out No long er eligible based on patient's age to complete this topic
--- OUTSIDE RECORDS SUMMARY | 2024-12-14 15:57 | XMS_ITS | Encounter Summary ---
Author Organization [facility] Address [address] [place] [id number] Phone Care Team Providers Care Marketing Officer Name Role Phone Unavailable Primary Care Provider Unavailabl e Encounter Details Date Type Department Care Team (Late st Contact Info) Description 04/23/2017 Conversion Encounter [facility] - [address] [address] Social History Tobacco Use Types Packs/Day Years Used Date Smoking Tobacco: Never Assessed Sex and Gender Information Value Date Recorded Sex Assigned at Not on file Legal Sex Male 4:25 PM EDT Gender Identity Not on file Sexual Orientation Not on file documented as of this encounter Plan of Treatment Not on file documented as of this encounter Visit Diagnoses Not on filedocumented in this encounter
--- OUTSIDE RECORDS SUMMARY | 2024-12-14 15:57 | XMS_ITS | Clinical Summary ---
Author Organization [facility] Address [address] [facility] [address] [place] [address] Phone Care Team Providers Care Manager Scientific Name Role Phone Ignacio Joy NP Primary Care Provider [phone] Allergies No known active allergies Medications Zinc Sulfate (ZINC 15 PO) Take 1 tablet by mouth daily Active Zinc-Vitamin C 10-60 MG lozenge Active Vit C-Cholecalcifer ol-Pauline Hip (Vitamin C & D3/Pauline Hips) 500-1000-20 MG-UNIT-MG capsule See administration instructions Active amoxicillin (AMOXIL) 875 MG tablet amoxicillin 875 mg tablet Active amoxicillin-cla vulanate (AUGMENTIN) 875-125 MG per tablet amoxicillin 875 mg-potassium clavulanate 125 mg tablet Active azithromycin (ZITHROMAX) 250 MG tablet azithromycin 250 mg tablet Active cyclobenzaprine (FLEXERIL) 10 MG tablet cyclobenzaprine 10 mg tablet Active diclofenac (VOLTAREN) 50 MG EC tablet diclofenac sodium 50 mg tablet,delayed release Active doxycycline (VIBRAMYCIN) 100 MG capsule doxycycline hyclate 100 mg capsule Active famotidine (PEPCID) 20 MG tablet famotidine 20 mg tablet Active fluconazole (DIFLUCAN) 100 MG tablet fluconazole 100 mg tablet Active meclizine (ANTIVERT) 25 MG tablet meclizine 25 mg tablet Active fluticasone (FLONASE) 50 MCG/ACT nasal spray fluticasone propionate 50 mcg/actuation nasal spray,suspension Active nicotine polacrilex (NICORETTE) 4 MG gum nicotine (polacrilex) 4 mg gum Active ondansetron ODT (ZOFRAN-ODT) 4 MG dispersible tablet ondansetron 4 mg disintegrating tablet Active predniSONE (DELTASONE) 20 MG tablet prednisone 20 mg tablet Active dicyclomine (BENTYL) 10 MG capsule TAKE 2 CAPSULE BY MOUTH FOUR TIMES A DAY BEFORE MEALS AND AT BEDTIME 01/04/20 Active nicotine polacrilex (NICORETTE) [address] GUM BETWEEN GUM AND CHEEK EVERY 2 HOURS NEEDED FOR NICOTINE CRAVINGS 01/04/20 Active nitrofurantoin, macrocrystal-mo nohydrate, (MACROBID) 100 MG capsule Take 100 mg by mouth in the morning and 100 mg in the evening. 12/29/19 Active nystatin (MYCOSTATIN) 728306 UNIT/ML suspension SWISH AND SPIT 5 MLS BY MOUTH 4 TIMES PER DAY FOR 10 DAYS RETAIN IN MOUTH LONG POSSIBLE. 12/29/19 Active pantoprazole (PROTONIX) 40 MG EC tablet Take 40 mg by mouth 1 (one) time each day 12/19/19 Active Active Problems Problem Noted Date Diagnosed Date Abnormal feces 01/07/2022 Left upper quadrant pain 01/07/2022 Hematemesis 01/07/2022 Gynecomastia 04/06/2019 Family History Medical History Relation Comments Cancer Maternal Grandfather Cancer Paternal Grandmother Relation Status Comments Maternal Grandfather Paternal Grandmother Social History Tobacco Use Types Packs/Day Years Used Date Smoking Tobacco: Every Day Cigarettes Smokeless Tobacco: Never Alcohol Use Standard Drinks/Week Comments Never 0 (1 standard drink = 0.6 oz pur e alcohol) Sex and Gender Information Value Date Recorded Sex Assigned at Not on file Legal Sex Male 8:06 AM EDT Gender Identity Not on file Sexual Orientation Not on file Last Filed Vital Signs Vital Sign Reading Time Taken Comments Blood Pressure 140/100 01/08/2022 9:10 AM EDT Pulse 88 01/08/2022 9:10 AM EDT Temperature - - Respiratory Rate - - Oxygen Saturation 98% 01/08/2022 9:10 AM EDT Inhaled Oxygen Concentration - - Weight 115 kg (253 lb) 01/08/2022 9:10 AM EDT Height - - Body Mass Index - - Plan of Treatment Health Maintenance Due Date Last Done Comments Pneumococcal Vaccine: Pediat rics (0 to 5 Years) and At-Risk Patients (6 to 64 Years) (1 of 2 - PCV) 12/05/1995 Influenza Vaccine (Season Ended) 2025 Hepatitis B Vaccine Completed 05/20/2002, 07/28/2001, 07/01/2001 Insurance [facility] Care Teams Manager Scientific Relationship Specialty Start Date End Date Ignacio Joy NP [facility] [place] [address] PCP - General Nurse Practitioner 12/31/21
--- OUTSIDE RECORDS SUMMARY | 2024-12-14 15:58 | XMS_ITS | Patient Health Record ---
Author Organization [facility] Address [address] [place] [address] Care Team Providers Care Rn Private Duty Name Role Phone Mj EATON, Leelee Primary Care Provider Unavail able Sanket Hendrix Jr Unavailable Allergies No Known Allergies Reason For Referral No Information Medications Medication SIG (Take, Route, Frequency, Duration) Notes Start Date End Date Status Pantoprazole Sodium 40 MG 1 packet mixed with apple juice or applesauce Orally Once a day for 30 day(s) 10/07/2021 Active Pantoprazole Sodium 40 MG 1 tablet Orall y Once a day for 30 day(s) 12/18/2021 Active Zinc + Vitamin C Act eder Vitamin C & D3/Pauline Hips 500-1000-20 MG-UNIT-MG as directed Orally Active Immunizations Vaccine Route Administration Date Status Comme nts Influenza Unknown 07/26/2020 Refused Influenza Unknown 10/07/2021 Refused Social History Tobacco Use: Social History Observation Description Date Details (start date - stop date) Current Smoker NA - NA Tobacco Use/Smoking Question Answer Notes Patient is a current smoker How often do you smoke cigarettes? every day How many cigarettes a day do you smoke? 5 or les s Alcohol Screen Question Answer Notes Did you have a drink containing alcohol in the p ast year? No Points 0 Interpretation Negative Problems Problem Type SNOMED Code ICD Code Onset Dates Problem Status W/U Status Risk Notes Problem Esophageal reflux (012222858) Esophageal reflux (K21.9) Active confirmed Problem 51581867 Epigastric pain (R10.13) Active confirmed Problem 5738898 Diverticulitis o f large intestine without perforation or abscess without bleeding (K57.32) Active confirmed Problem Diverticulitis (581487295) Diverticulitis of both small and large intestine without perforation or abscess without bleeding (K57.52) Active confirmed Problem 616761481 Gastroesophageal reflux disease without esophagitis (K21.9) Active confirmed Problem 478121041 Abnormal finding s in stool (R19.5) Active confirmed Problem Diverticulitis of colon (070838672) Diverticulitis of colon (K57.32) Active confirmed Problem Esophageal reflux finding (904101650) Gastroesophageal reflux (K21.9) Active confirmed Problem 935804954 LUQ pain (R10.12) Active confirmed Problem 4558135 Hematemesis, presence of nausea not specified (K92.0) Active confirmed Plan Of Treatment Future Test Test Name Order Date UPPER GI ENDOSCOPY 07/26/2020 UPPER GI ENDOSCOPY 01/15/2022 COLONOSCOPY 01/15/2022 Insurance Providers Payer Name Payer Address Payer Phone Subscriber Number Group Number Insured Name Patient Relationship to Insured Coverage Start Date Coverage End Date [employer] [address] [place]HE[place] [id number] GÉNESIS ESCAMILLA Self - patient is the insured Medical (General) History Medical History History ICD Code hx kidney stones Denies ND,DM,CVA,Lung disease,renal dise ase seasonal allergies Surgical History Surgery Date(Month/Year) gynecomastia mass 09/2019 lipoma excision, forehead 2010 Hospitalization History Reason Date(Month/Year)
--- OUTSIDE RECORDS SUMMARY | 2024-12-14 15:58 | XMS_ITS | Data Portability ---
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 Bloating after eating, which is painful. Avoids eating during the day so that he is more comfortable. Has been treated with multiple antibiotics specific to SIBO without much success. Noted that he experiences pain 1 hour after eating. He has also had repeat treatment oral thrush without success as well. For now he is going to follow low FODMAPs diet. Hopefully in time he will be able to eat more than just one meal at the end of the day. Appears to be lactose intolerant. Nutrition diagnosis: Predicted suboptimal nutrient intake (NI-5.11.1)- specifically vitamins and minerals r/t altered GI function AEB limited meal intake to minimize bloating symptoms. time start/end: 3:35-4:40 p.m. (65 minutes) [email or web address] Not available 06/27/2024 20:21:03 09/08/2024 09/08/2024 General Health Maintenance -Monitor symptoms closely and return for evaluation if symptoms worsen or persist. [email or web address] Not available 09/08/2024 17:49:59 11/14/2024 11/14/2024 Backgrouind: Pt with possible SIBO. Bloating after eating, which is painful. Today in follow up: began to follow low FODMAPs diet more consistently and reports starting to feel better. Out to breakfast a few days ago: Belarusian toast with syrup, felt terrible afterwards, stomach pain and brain fog. May have been due to eating gluten, or perhaps the [place]ian toast had milk in it. Diet very restrictive; corn, rice, rice noodles; proteins, spinach, nuts, sushi, pad diana without sauce. Discussed adding in more foods over time. Reports trying gluten free flour such as millet. Gave up dairy milk, using almond milk in coffee. Can tolerate hard cheese (low in lactose). Reintroduction of foods high in FODMAPs did not go well: brain fog and abdominal pain. Doesn't tolerate too much fiber. Tolerates carrots in small amounts. Nutrition diagnosis: Predicted suboptimal nutrient intake (NI-5.11.1)- specifically vitamins and minerals r/t altered GI function AEB limited meal intake to minimize bloating symptoms. time start/end: 3:32- 4:30 p.m. (58 minutes) [email or web address] Not available 11/15/2024 08:39:35 Plan of Treatment Reminders Order Date Submit Date Provider Last Modified By Organization Details Last Modified Time Details Appointments LAB Follow -Up 2024 11:00A M [facility] Lab Not available Not available Not available Medica l Manage ment 15 2024 01:45P M Stella Padron MD Not available Not available Not available Lab None record ed. Referral neurop sychia trist referr al - brain fog, disori entati on, some percep tion change s 2024 025 laura Swan, [address] [facility], [place], [address], 10/31/2024 13:37:52 Procedures None record ed. Surgeries None record ed. Imaging None record ed. Medication Orders lisino pril 10 mg tablet 2023 024 d[id number], [address] [facility] [place], [address], 05/19/2024 20:56:21 Patient TargetsNo targets recorded. Patient Instructions Encounter Date Encounter Id Patient Instructions Last Modified By Organization Details Last Modified Time 06/27/2024 [id number] Today we discussed: - challenges to eating; discomfort, bloat, oral thrush - limited to 1 meal/day to stay comfortable - SIBO? If so, perhaps Low FODMAPs diet might help. Following consistently could give you positive results. Handouts: Low FODMAPs diet; Diann Alberto Low FODMAPs grocery list -oral thrush. You and your girlfriend should both treat it to prevent passing back and forth. [email or web address] Not available 06/27/2024 20:18:46 PLAN/GOALS: - Low FODMAPs diet; follow with consistency. Follow up: 09/19/24, 3:[address] with questions: Office # (leave a message): ; email: [email or web address]; or patient portal [email or web address] Not available 06/27/2024 20:21:29 10/20/2024 [id number] declined flu vaccine today [email or web address] Not available 10/20/2024 19:43:30 11/14/2024 [id number] Today we discussed: - success with low FODMAPs diet; feeling better when you follow it - very limited diet at present. - taking time to prepare food, try one new food each week that is on the low FODMAPs diet - variety, getting more nutrients; consider a Low FODMAPs friendly multivitamin - try some easy low fodmaps recipes (see email link to recipes) - utilize what little time you have to cook: freeze simple leftovers; (rice, gf pasta; consider other gf grains like millet and quinoa) Handout via email: SIBO diet, phases for recovery. You are already following parts of phase one; consider trying phase 2 on that diet to encourage healing. - one large meal/day at dinner- perhaps too taxing on your digestion? aim to eat more than snacks earlier in the day [email or web address] Not available 11/15/2024 08:43:44 PLAN/GOALS: - Low FODMAPs diet; follow with consistency. - aim to eat earlier in the day; take time at work for a meal - freeze cooked grains or gf pasta- anything that will help you with meals given how little spare time you have; frozen veggies very convenient - low fodmaps multivitamin - try some low fodmaps recipes (see link in email for simple recipes) Contact RD with questions: Office # (leave a message): ; email: [email or web address]; or patient portal by 12/05 chastity Not available 11/15/2024 08:45:35 Reason for Referral Neuropsychiatrist Referral f or Memory recall finding brain fog, disorientation, some perception changes Referring Physician: Stella Padron, Family Medicine, Encounter Date: 10/20/2024 Results Created Date Observation Date Name Description Value Unit Range Abnormal Flag Note LastModifiedBy Organization Detail LastModifiedTime 10/14/1910/14/2024 BASIC METAB OLIC PANEL glucose 88 mg/dL 70-100 Not Available [address], [address], 10/14/2024 15:59:55 10/14/1910/14/2024 BASIC METAB OLIC PANEL BUN 19 mg/dL 7-18 high Not Available [address], [address], 10/14/2024 15:59:55 10/14/1910/14/2024 BASIC METAB OLIC PANEL creatinine 1.2 mg/dL 0.8-1. 3 Not Available [address], [address], 10/14/2024 15:59:55 10/14/19 25 10/14/2024 BASIC METAB OLIC PANEL B/C 15.8 ratio Not Available [address], [address], 10/14/2024 15:59:55 10/14/19 25 10/14/2024 BASIC METAB OLIC PANEL GFR >=60ML /MIN mL/mi n normal >=60m L/min - Valeria l or midly reduc ed <60mL /min- Decre ased kidne y funct ion <15mL /min - Kidne y failu re [facility] calcu lates estim ated Glome rular Filtr ation Rate (eGFR ) using the Chron ic Kidne y Disea se Epide miolo gy Colla borat ion (CKD- EPI) Equat ion (Sasha r et. al 2020) as recom chicho d by the Natio nal Kidne y Found ation . eGFR is based on age, serum creat inine , and sex. CKD-E PI does not calcu late eGFR by race, does not apply to child jj (age <18 years ), and shoul d not be used in pregn maxim. Not Available [address], [address], 10/14/2024 15:59:55 10/14/1910/14/2024 BASIC METAB OLIC PANEL sodium 141 mmol/ L 136-14 5 Not Available [address], [address], 10/14/2024 15:59:55 10/14/19 25 10/14/2024 BASIC METAB OLIC PANEL potassium 4.2 mmol/ L 3.5-5. 1 Not Available [address], [address], 10/14/2024 15:59:55 10/14/19 25 10/14/2024 BASIC METAB OLIC PANEL chloride 102 mmol/ L 96-107 Not Available [address], [address], 10/14/2024 15:59:55 10/14/1910/14/2024 BASIC METAB OLIC PANEL anion gap 12.6 5.0-15 .0 Not Available [address], [address], 10/14/2024 15:59:55 10/14/19 25 10/14/2024 BASIC METAB OLIC PANEL CO2 26 mmol/ L 21-32 Not Available [address], [address], 10/14/2024 15:59:55 10/14/19 25 10/14/2024 BASIC METAB OLIC PANEL calcium 9.6 mg/dL 8.5-10 .3 Not Available [address], [address], 10/14/2024 15:59:55 09/02/20 24 09/02/2024 XR, chest No observ ation record ed. [email or web address] Not Available 2023 16:50:29 Result Notes None recorded. Problems Name Problem SNOMED Code Status Onset Date Resolution Date Notes Provider Name and Address Organization Details Recorded Time Low back pain 151502093 Active Larry [place] [address] [place], [address], [facility] 3 13:04:11 Depressive disorder 85634843 Active Larry Austin [address] [place], [address], [facility] 3 12:58:04 Insomnia 454985806 Completed 05/28/2018 Giovany Carver MD [address] [place], [place] [address], [address], [facility] 8 10:09:43 Tobacco dependence syndrome 22360227 Active 2017 Giovany Carver MD [address] [place], [place] [address], [address], [facility] 8 10:09:39 Migraine 37967492 Active 2023 Stella Padron MD [address] [place], [place] [address], [address], [facility] 4 17:05:55 Small bowel bacterial overgrowth syndrome 054799633 Active 2023 Stella Padron MD [address] [place], [place] [address], [address], [facility] 4 16:12:24 Problem Notes None recorded. Procedures Surgical History Date Name Laterality Status Provider Name and Address Organization Details Recorded Time 04/14/20 24 Smoking cessation counseling completed Ricarda Bass MA [facility] 04/14/2024 16:06:54 01/05/20 24 Smoking cessation counseling completed Holden Cochran MA [facility] 01/05/2024 11:34:11 01/05/20 24 [id number] completed Giovany Carver MD [address] [place] [address], [phone], [facility] 01/05/2024 18:37:50 05/14/20 21 Smoking cessation counseling completed Ricarda Bass MA [facility] 05/14/2021 12:12:20 04/22/20 21 Smoking cessation counseling completed Ricarda Bass MA [facility] 04/22/2021 13:34:31 12/14/19 21 Physical Activity Counselling completed Norma Campbell, PT [address] [place] [address], [phone], [facility] 12/13/2020 10:42:31 12/14/19 21 51109: PT Eval Low Complexity completed Norma Campbell, PT [address] [place] [address], [phone], [facility] 12/13/2020 10:42:33 12/14/19 21 Treatment and Advice completed Norma Campbell, PT [address] [place] [address], [phone], [facility] 12/13/2020 13:26:27 12/01/19 21 Smoking cessation counseling completed Arabella Edwards MA [facility] 11/29/2020 16:27:00 12/01/19 21 prevention-feroz dixon alcohol misuse screening completed Arabella Edwards MA [facility] 11/29/2020 16:24:10 11/22/19 21 Smoking cessation counseling completed NINA RYAN NP [address] [place] [address], [phone], [facility] 11/22/2020 10:47:57 09/14/19 21 Smoking cessation counseling completed Laura Dasilva PA-C [address] [place] [address], [phone], [facility] 09/17/2020 08:50:31 08/10/20 20 Smoking cessation counseling completed Zaria Cerrato MD [address] [place] [address], [phone], [facility] 08/10/2020 10:59:42 08/01/20 20 Smoking cessation counseling completed Zaria Cerrato MD [address] [place] [address], [phone], [facility] 08/01/2020 10:26:19 07/20/20 20 Smoking cessation counseling completed Shiloh Pickett [facility] 07/20/2020 15:03:47 07/20/20 20 prevention-feroz dixon alcohol misuse screening completed Shiloh Pickett [facility] 07/20/2020 15:03:35 07/12/20 20 Smoking cessation counseling completed Pratik Turcios [facility] 07/12/2020 10:20:24 07/03/20 20 Smoking cessation counseling completed Pratik Turcios [facility] 07/03/2020 14:17:09 01/04/20 20 Smoking cessation counseling completed Marquez Shepherd PA-C [address] [place] [address], [phone], [facility] 01/04/2020 10:00:00 06/17/20 19 Smoking cessation counseling completed Beatriz Bolanos [facility] 06/17/2019 09:21:34 06/17/20 19 Carbon Monoxide Testing completed Beatriz Bolanos [facility] 06/17/2019 09:21:34 08/23/20 18 Smoking cessation counseling completed JOHNNY Brock [facility] 08/23/2018 09:44:41 08/17/20 18 Smoking cessation counseling completed Meghann Mei [facility] 08/17/2018 08:04:43 05/28/20 18 Smoking cessation counseling completed Jossie Sy [facility] 05/28/2018 09:31:49 12/26/19 17 Smoking cessation counseling completed Meghann Mei [facility] 12/25/2016 13:35:33 12/26/19 17 Carbon Monoxide Testing completed Meghann Mei CMA [facility] 12/25/2016 13:39:13 11/21/19 17 Smoking cessation counseling completed Meghann Mei [facility] 11/20/2016 16:23:36 11/21/19 17 Carbon Monoxide Testing completed Meghann Mei [facility] 11/20/2016 16:36:18 09/10/19 16 Smoking cessation counseling completed Kelly Pink [facility] 09/10/2015 15:37:44 06/17/20 13 Smoking cessation counseling completed Larry Austin [facility], [address], [facility] 06/17/2013 12:01:27 05/20/20 13 Smoking cessation counseling completed Larry Austin [facility], [phone], [facility] 05/20/2013 12:40:39 05/18/20 12 Smoking cessation counseling completed Maria De Jesus Antunez LPN [facility] 05/18/2012 08:40:34 Imaging Results Imaging Date Name Status LastModified by Organiz ation Details LastModified Time 09/02/2024 XR, chest completed [email or web address] Information no t available 09/02/2024 16:50:29 Procedure Notes None recorded. Medical Equipment None Reported. Allergies Allergen ID Allergen Name Allergen Category Reaction Reaction Severity Criticality Documentation Date Start Date Code Code System Note Provider Name and Address Organization Details Recorded Time [id number] tree and shrub pollen environme nt,medica tion Not available Not available Not available 04/22/2021 [address] [facility] 13:32:59 701892 cat dander environme nt Not available Not available Not available 04/22/2021 53577 [facility] 13:33:05 552857 grass pollen environme nt,medica tion Not available Not available Not available 04/22/2021 46437 [facility] 13:33:16 Medications Name Sig Start Date Stop Date Status Note LastModified by Organization Details LastModified Time chantix starting month ishmael 0.5 mg x11 & 1 mg x 42 tabs 11/20 completed Not Available Not Available Not Available naproxen 375 mg tabs 11/20 completed Not Available Not Available Not Available diclofena c sodium dr 75 mg tbec active Not Available Not Available Not Available losartan 50 mg tablet TAKE 1 TABLET BY MOUTH EVERY DAY 04/14 completed not taking 03/18/24 Not Available Not Available Not Available cyclobenz aprine 10 mg tablet 05/14 completed Not Available Not Available Not Available amoxicill in 500 mg capsule TAKE 1 CAPSULE BY MOUTH 3 TIMES A DAY UNTIL FINISHED 01/04 completed Not Available Not Available Not Available fluconazo le 100 mg tablet TAKE 1 TABLET BY MOUTH EVERY DAY 01/04 completed not taking 01/05/24 PJ Not Available Not Available Not Available prednison e 10 mg tablet 02/25 completed done xr Not Available Not Available Not Available doxycycli ne hyclate 100 mg capsule TAKE 1 CAPSULE BY MOUTH TWICE A DAY FOR 10 DAYS 10/20 completed finished 09/08/24ab Not Available Not Available Not Available paroxetin e 10 mg tablet TAKE 1 TABLET BY MOUTH EVERY DAY active Not Available Not Available No t Available naproxen 375 mg tablet TAKE 1 TABLET(S ) TWICE A DAY BY ORAL ROUTE FOR 30 DAYS. 11/20 completed Not Available Not Available Not Available azithromy marivel 250 mg tablet TAKE 2 TABLETS BY MOUTH TODAY, THEN TAKE 1 TABLET DAILY FOR 4 DAYS 08/26 completed Not Available Not Available Not Available senna 8.6 mg tablet TAKE 1 CAPSULE BY MOUTH EVERY DAY NEEDED FOR CONSTIPA TION 03/18 completed Not Available Not Available Not Available famotidin e 40 mg tablet TAKE 1 TABLET BY MOUTH AT BEDTIME 01/04 completed Not Available Not Available Not Available prednison e 20 mg tablet TAKE 3 TABLETS BY MOUTH X3 DAYS, THEN 2 TABS X3 DAYS, THEN 1 TAB X3 DAYS 10/20 completed finished 09/08/24ab Not Available Not Available Not Available rizatript an 10 mg tablet PLEASE SEE ATTACHED FOR DETAILED DIRECTIO NS 01/04 completed not taking 01/05/24 PJ Not Available Not Available Not Available metronida zole 250 mg tablet TAKE 1 TABLET BY MOUTH THREE TIMES A DAY FOR 10 DAYS 10/20 completed Not Available Not Available Not Available hydroxyzi ne pamoate 50 mg capsule TAKE ONE CAPSULE BY MOUTH EVERY DAY AT BEDTIME 12/25 completed Not Available Not Available Not Available oxycodone -acetamin ophen 5 mg-325 mg tablet 07/12 completed not using 07/03/20 20-sk Not Available Not Available Not Available amoxicill in 875 mg tablet Take 1 tablet every 12 hours by oral route for 5 days. 02/25 completed done 1 xr Not Available Not Available Not Available magnesium oxide 400 mg (241.3 mg magnesium ) tablet 400 MG ORALLY BEDTIME FOR 30 DAYS MAY HOLD FOR LOOSE STOOLS 01/04 completed Not Available Not Available Not Available nicotine (polacril ex) 4 mg gum CHEW 1 PIECE OF GUM BY MOUTH EVERY 2 HOURS 01/04 completed Not Available Not Available Not Available amitripty line 10 mg tablet TAKE 1 TABLET BY MOUTH EVERYDAY AT BEDTIME 01/04 completed Not Available Not Available Not Available meclizine 25 mg tablet TAKE 1 TABLET 3 TIMES A DAY BY ORAL ROUTE FOR 10 DAYS. 02/25 completed done 1 xr Not Available Not Available Not Available benzonata te 100 mg capsule 10/20 completed Not Available Not Available Not Available doxycycli ne monohydra te 100 mg capsule 06/17 completed Not Available Not Available Not Available lisinopri l 10 mg tablet TAKE 1 TABLET EVERY DAY BY ORAL ROUTE FOR 30 DAYS, FOR HYPERTEN IRMA. active Not Available Not Available No t Available lansopraz ole 15 mg capsule,d elayed release Take 1 capsule every day by oral route. 04/22 completed Not Available Not Available Not Available gabapenti n 300 mg capsule Take 1 capsule 3 times a day by oral route. 01/04 completed not taking 01/05/24 PJ Not Available Not Available Not Available omeprazol e 20 mg capsule,d elayed release Take 2 capsules by mouth in the morning and 1 capsule in the evening. If no improvem ent after 3 days, increase to 2 caps twice daily. 09/14 completed Not Available Not Available Not Available diclofena c sodium 75 mg tablet,de layed release Take 1 tablet twice a day by oral route with meals for 10 days. 11/20 completed Not Available Not Available Not Available lisinopri l 5 mg tablet TAKE 1 TABLET EVERY DAY BY ORAL ROUTE FOR 30 DAYS, FOR HYPERTEN IRMA. 05/19 completed Not Available Not Available Not Available diclofena c sodium 50 mg tablet,de layed release 08/26 completed Not Available Not Available Not Available Wellbutri n 100 mg tablet Take 1 tablet twice a day by oral route for 30 days. 06/19 completed pt stopped Not Available Not Available Not Available epinephri ne 0.3 mg/0.3 mL injection , auto-inje ctor 08/26 completed Not Available Not Available Not Available polyethyl neris glycol 3350 17 gram/dose oral powder MIX 17 G WITH WATER OR JUICE AND DRINK 2 TIMES A DAY 01/04 completed not taking 01/05/24 PJ Not Available Not Available Not Available albuterol sulfate HFA 90 mcg/actua tion aerosol inhaler 10/20 completed Not Available Not Available Not Available ondansetr on 4 mg disintegr ating tablet 10/20 completed Not Available Not Available Not Available cefdinir 300 mg capsule Take 1 capsule every 12 hours by oral route for 10 days. 08/23 completed Not Available Not Available Not Available fluticaso ne propionat e 50 mcg/actua tion nasal spray,clair pension 08/26 completed Not Available Not Available Not Available sertralin e 50 mg tablet Take 1 tablet every day by oral route for 30 days. 07/17 completed Not Available Not Available Not Available amoxicill in 875 mg-potass ium clavulana te 125 mg tablet TAKE 1 TABLET BY MOUTH EVERY 12 HOURS FOR 10 DAYS 01/04 completed Not Available Not Available Not Available verapamil ER 120 mg 24 hr capsule,e xtended release TAKE 1 CAPSULE BY MOUTH EVERY DAY 01/04 completed Not Available Not Available Not Available voriconaz ole 200 mg tablet TAKE 1 TABLET (200 MG) BY MOUTH EVERY 12 HOURS X 10 DAYS 01/04 completed Not Available Not Available Not Available azithromy marivel 500 mg tablet TAKE 1 TABLET BY MOUTH EVERY DAY FOR 5 DAYS 11/30 completed Not Available Not Available Not Available cyclobenz aprine 5 mg tablet TAKE 1 TABLET TWICE A DAY BY ORAL ROUTE NEEDED FOR 10 DAYS. 08/26 completed Not Available Not Available Not Available bupropion HCl XL 300 mg 24 hr tablet, extended release TAKE 1 TABLET BY MOUTH EVERY DAY 07/12 completed not using anymore 07/03/20 20-sk Not Available Not Available Not Available bupropion HCl XL 150 mg 24 hr tablet, extended release Take 1 tablet every day by oral route for 30 days. 08/23 completed Not Available Not Available Not Available lactulose 10 gram/15 mL oral solution TAKE 15ML BY MOUTH NEEDED ORALLY ONCE A DAY 05/19 completed Not Available Not Available Not Available IBU 01/04 completed Not Available Not Available Not Available Benadryl 01/04 completed PRN 01/05/24 PJ Not Available Not Available Not Available pantopraz ole DR 40 mg granules delayed-r elease for susp in packet Take 1 packet every day by oral route. 01/04 completed not taking 01/05/24 PJ Not Available Not Available Not Available Xifaxan 550 mg tablet TAKE 1 TABLET BY MOUTH THREE TIMES A DAY FOR 14 DAYS 04/14 completed Not Available Not Available Not Available Chantix Starting Month Box 0.5 mg (11)-1 mg (42) tablets in dose pack USE DIRECTED PER PACKAGE DIRECTIO NS 08/17 completed Stopped 05/28/18 OD Not Available Not Available Not Available riboflavi n (vitamin B2) 400 mg tablet TAKE 1 TABLET BY MOUTH EVERY DAY FOR 30 DAYS 01/04 completed Not Available Not Available Not Available Ubrelvy 100 mg tablet PLEASE SEE ATTACHED FOR DETAILED DIRECTIO NS active Not Available Not Available No t Available Vitals Date Recorded Body weight Oxygen saturation Oxygen saturation in Arterial blood by Pulse oximetry Heart rate Systolic blood pressure Diastolic blood pressure Provider Name and Address Organization Details Last Updated DateTime 4 585164. 88 g 98 % 98 % 87 /min 136 mm[Hg] 70 mm[Hg] Karime Ward MA [facility] 4 15:48:27 Date Recorded Body weight Body temperature Heart rate Oxygen saturation Oxygen saturation in Arterial blood by Pulse oximetry Systolic blood pressure Diastolic blood pressure Provider Name and Address Organization Details Last Updated DateTime 5 853455. 8 g 98 [degF] 81 /min 98 % 98 % 126 mm[Hg] 70 mm[Hg] Charis Watkisn [facility] 17:13:14 Date Recorded Body weight Heart rate Systolic blood pressure Diastolic blood pressure Provider Name and Address Organization Details Last Updated DateTime 10/20/2024 700979.54 g 80 /min 114 mm[Hg] 76 mm[Hg] Ricarda Bass [facility] 10/20/2024 16:13:45 Social History Question Answer Notes LastModified by Organizat ion Details LastModified Time Tobacco Smoking Status Former Smoker quit oct 2023 Karime Ward MA [facility] 05/19/2024 15:46:44 What Is Your Level Of Alcohol Consumption? None Information not available 11/20/2016 What Is Your Level Of Caffeine Consumption? Heavy 3 To 4 Cups Daily Information not available 11/20/2016 Are You Currently Employed? Yes [email or web address] Information not available 05/19/2024 What Type Of Diet Are You Following? REGULAR Information not available 11/20/2016 Which Illicit Or Recreational Drugs Have You Used? None Information not available 11/20/2016 Do You Or Have You Ever Used E-cigarettes Or Vape? Current User Of Electronic Cigarettes [email or web address] Information not available 05/19/2024 What Is Your Occupation? [employer] [place] Information not available 08/23/2018 When Did You Quit Smoking? 1-5yearssincel [email or web address] [email or web address] Information not available 05/19/2024 How Many Days In The Past Year Have You Had A Heavy Drinking Consumption (4+ Female, 5+ Male)? 0 Information not available 11/20/2016 Are There Any Guns Present In Your Home? No [email or web address] Information not available 08/23/2018 Live Alone Or With Others? Alone [email or web address] Information not available 07/12/2020 Patient Has Health Care Proxy Signed And In Chart No Form Given 11/20/2016 Information not available 11/20/2016 Marital Status Single ortiz Inf ormation not available 05/18/2012 Mosquito Repellent Used Routinely Yes Information not available 11/20/2016 What Was The Date Of Your Most Recent Tobacco Screening? 10/20/2024 [email or web address] Information not available 10/20/2024 How Many Children Do You Have? 0 Information not available 05/18/2012 What Is Your Current Pack Years? 10packyears Age 16 Information not available 11/20/2016 What Is Your Relationship Status? Domestic Partner Jessica Living Together - 2 Yrs Information not available 01/05/2024 Seat Belts Used Routinely Yes Information not available 05/20/2013 Are You Sexually Active? Yes [email or web address] Information not available 05/18/2012 Smoke Alarm In Home Yes Information not available 05/20/2013 At What Age Did You Start Smoking Tobacco? 17 Information not available 05/18/2012 Do You Or Have You Ever Used Smokeless Tobacco? Never Used Smokeless Tobacco [email or web address] Information not available 09/06/2019 What Types Of Sporting Activities Do You Participate In? None Information not available 11/20/2016 Do You Use Any Illicit Or Recreational Drugs? No [email or web address] Information not available 05/19/2024 Do You Use Sunscreen Routinely? Yes Information not available 11/20/2016 How Many Years Have You Smoked Tobacco? 13 [email or web address] Information not available 07/20/2020 Do You Or Have You Ever Used Any Other Forms Of Tobacco Or Nicotine? Yes [email or web address] Information not available 05/19/2024 Sex: Unknown Functional Status Question Answer Note LastModified by Organization D etails LastModified Time What is your exercise level? None [email or web address] Information not available 05/19/2024 Mental Status None recorded. Family History Relationship Description Onset Age of this Age Resolved Age Notes LastModified by Organization Details LastModified Time Mother Asthma [email or web address] [id number] Not available 04/18/2013 03:01:22 Brother Asthma [email or web address] [id number] Not available 04/18/2013 03:01:22 Brother Asthma [email or web address] [id number] Not available 04/18/2013 03:01:22 Brother Depressive disorder [email or web address] [email or web address] Not available 11/20/2016 16:45:55 Father Heart disease congen ital valve replac ed [email or web address] [id number] Not available 04/18/2013 03:01:22 Notes:paternal side - 4 suic ides Medical History Condition Response Anxiety Y Immunizations Vaccine Type Date Status Note Provider Nam e and Address Organization Details Recorded Time Tdap 05/18/2012 completed Not Available [facility] 09/24/2019 02:25:02 Influenza, split virus, quadrivalent, PF 09/10/2015 completed Not Available [facility] 0 02:20:15 COVID-19, mRNA, LNP-S, PF, 100 mcg/0.5mL dose or 50 mcg/0.25mL dose 04/26/2021 completed Not Available [facility] 2 13:34:04 Tdap 10/20/2024 completed Stella Padron MD [address] [place] [address], [phone], [facility] 10/20/2024 19:39:03 COVID-19, mRNA, LNP-S, PF, 100 mcg/0.5mL dose or 50 mcg/0.25mL dose 04/26/2021 [facility] 10/20/2024 16:21:41 COVID-19, mRNA, LNP-S, PF, 100 mcg/0.5mL dose or 50 mcg/0.25mL dose 04/26/2021 [facility] 10/20/2024 16:21:41 COVID-19, mRNA, LNP-S, PF, 100 mcg/0.5mL dose or 50 mcg/0.25mL dose 04/26/2021 [facility] 10/20/2024 16:21:41 Past Encounters Encounter ID Performer Location Encounter Start Date Encounter Closed Date Diagnosis/Indication Diagnosis SNOMED-CT Code Diagnosis ICD10 Code Diagnosis Note [id number] [facility], OFFICE [address] [place] [phone] 05/18/2012 08:24:48 05/18/2012 09:23:50 [id number] Joslyn Parrishlen , [facility], OFFICE [address] [place] [address] 05/20/2013 11:41:10 05/20/2013 12:52:05 Adult health examination 847670680 see Risk Assessment and Lifestyle Change Counseling section above Tobacco user 576730767 Low back pain 066947697 Depressive disorder 45391522 [id number] JENNY Zazueta , [facility], OFFICE [address] [place] [address] 06/17/2013 11:40:23 06/17/2013 12:08:10 Depressive disorder 83428084 Tobacco user 197496622 Insomnia 369814385 we discussed habit changes to improve your sleep, and the importance of sleep for your mood. [id number] Inocencia Nelson , [facility], OFFICE [address] [place] [address] 08/24/2015 16:39:39 08/24/2015 17:29:28 Temporomandibular joint disorder 55395475 M26.60 [id number] Justa Nelson [facility], OFFICE [address] [place] [address] 09/10/2015 15:31:24 09/11/2015 09:43:43 Tobacco user 832787323 Z72.0 After discussion of the risks of smoking to health, including risk or cardiovasc ular disease and multiple cancers, the patient is ready to commit to quitting. We discussed physical and psychologi catracho attributes of tobacco addiction and startegies to address both including setting a quit date, informing others of quit attempt, and positive and negative reinforcem ent strategies . We discussed mechanism and mode of action of pharmacolg ic therapies to aide in smoking ceasation. We addressed possible behavioral side effects of medication s including depression , suicidalit y, psychosis (Chantix); local skin reaction, vivid dreams (nicotine patch); tremulousn ess and withrawl phenomenon (buproprio n). I recommende d discontinu aton of medication s and immediate notificati on if intolerabl e side effects occur. May use medication s for up to 6 months as needed. Follow up as needed for support. Active or passive immunization 254493862 Z23 Temporoman dibular joint disorder 05798914 M26.60 [id number] Stella Padron MD , [facility], OFFICE [address] [place] [address] 11/20/2016 15:45:51 11/21/2016 09:23:41 Adult health examination 186398109 Z00.00 see Risk Assessment and Lifestyle Change Counseling section above Cigarette smoker 5043897 7 F17.210 Tobacco user 236140330 Z 72.0 At [facility] risk of sexually transmitted infection 228810119 Z20.2 Fatigue 57833155 R53.83 Melanocytic nevus 943339 001 D22.9 Insomnia 468493415 G47.0 0 [id number] Stella Padron MD , [facility], OFFICE [address] [place] [address] 12/25/2016 13:28:06 12/26/2016 15:51:16 Cigarette smoker 48023874 F17.210 Tobacco user 907726969 Z 72.0 At [facility] risk of sexually transmitted infection 200849396 Z20.2 Insomnia 725288112 G47.0 0 [id number] Giovany Carver MD , [facility], OFFICE [address] [place] [address] 6 05/28/2018 09:20:26 05/28/2018 10:15:43 Cigarette smoker 01609310 F17.210 Tobacco user 782027400 Z 72.0 Acute uppe r respiratory infection 97261388 J06.9 Educated patient that URI is a viral illness of the upper airways. It is not bacterial and does not benefit from antibiotic s. Average duration of URI is 7-10 days but in a recent trial, treatment at 7-10 days of illness with antibiotic s, intranasal steroids, or placebo did not alter natural history at 3 weeks. Recommende d symptomati c treatments including NSAIDS, semi-uprig ht sleep position, antihistam michael at HS, limited course of nasal sympathomi metics and/or cough syrups, and nasal saline rinses with soft squeeze bottle or Neti pot. Return for fevers > 101 for 3 days, worsening sinus pain, or failure to resolve in 2-4 weeks. Acute sinusitis 58874587 J01.90 [id number] Stella Padron MD , [facility], OFFICE [address] [place] [address] 08/17/2018 07:54:27 08/17/2018 08:23:44 Cigarette smoker 39009571 F17.210 Tobacco user 386286971 Z 72.0 Acute otitis media 01547 03 H66.91 [id number] Giovany Carver MD , [facility], OFFICE [address] [place] [address] 6 08/23/2018 09:26:10 08/23/2018 10:22:50 Adult health examination 577138648 Z00.00 see Risk Assessment and Lifestyle Change Counseling section above Depression screening 171 171363 Z13.89 depression screening tool administer ed, entered into emr, scored and discussed, time greater than 7.5 minutes Cigarette smoker 8632455 7 F17.210 Tobacco user 734258087 Z 72.0 Gynecomastia 5504761 N62 Family his tory of Cardiovascular disease 616477523 Z82.49 [id number] Stella Padron MD , [facility], OFFICE [address] [place] [address] 06/17/2019 11:17:03 06/17/2019 13:04:33 Cigarette smoker 67318648 F17.210 Tobacco user 294692782 Z 72.0 Gynecomastia 9950593 N62 [id number] Stella Padron MD , [facility], OFFICE [address] [place] [address] 09/06/2019 09:03:06 09/06/2019 11:00:24 Gynecomastia 6798348 N62 Pre-surger y evaluation 358735758 Z01.818 Depressive disorder 3548 9007 F32.9 Tobacco de pendence syndrome 00401606 F17.056 [id number] Marquez Shepherd PA-C , [facility], OFFICE [address] [place] [address] 01/04/2020 09:44:36 01/05/2020 11:50:28 Nasal sinus problem 294944917 J34.9 Pt presents today for evaluation of facial pain and congestion that has been persisting for several days. Pt has tried OTC remedies without relief. Pt history and physical exam are consistent with sinusitis. Discussed pathogenes is of sinusitis. Recommend pt continue with the supportive care of nasal saline, steam/hot showers, pushing fluids, ibuprofen or tylenol as needed for pain, cough syrup as needed for cough and rest. Due to the severity and persistanc e of pt symptoms we will also treat with antibiotic s as listed below. Pt will follow up if symptoms persist or worsen at any time. - Right frontal and maxillary facial pain. + Drainage and PND. Cigarette smoker 7247410 7 F17.210 The detrimenta l side effects of smoking was/have been discussed, the [facility] smoking services/o utpatient services were/have been discussed today. Patient knows that we are here to help and knows when to contact us if they decide to quit, also knows they can contact Christiano Moctezuma or us whenever they are ready or have questions and or if they are in contact already with him or a quitting resource.- Restart of wellbutrin . SE reviewed.- NO SI/HI. No Dep. or anx symptoms. Otalgia of right ear 662 8839092 070060 H92.01 attributed most likely to sinus pain. [id number] Ashish Rao MD , [facility], OFFICE [address] [place] [address] 6 07/03/2020 14:14:48 07/05/2020 10:48:09 Cigarette smoker 04466341 F17.210 Tobacco user 270843366 Z 72.0 Palpitations 39582767 R0 0.2 [id number] Bethany Hernandez NP , [facility], OFFICE [address] [place] [id number] 6 07/12/2020 10:16:50 07/13/2020 13:40:15 Tobacco dependence syndrome 91917034 F17.200 Cigarette smoker 2517906 7 F17.210 Tobacco user 481615273 Z 72.0 Epigastric pain 57615178 R10.13 [id number] Tammi Owens LPN , [facility], OFFICE [address] [place] [address] 6 07/17/2020 08:48:13 07/19/2020 14:42:25 Palpitations 66626222 R00.2 [id number] Tammi Owens LPN , [facility], OFFICE [address] [place] [address] 6 07/18/2020 09:29:18 07/20/2020 16:56:39 Palpitations 19129492 R00.2 [id number] Stella Padron MD , [facility], OFFICE [address] [place] [address] 6 07/20/2020 15:02:21 07/23/2020 17:14:36 Tobacco user 964247771 Z72.0 Epigastric pain 23774448 R10.13 Melena 7422398 K92.1 Palpitations 41014454 R0 0.2 [id number] Zaria Cerrato MD , [facility], OFFICE [address] [place] [address] 6 08/01/2020 09:56:12 08/01/2020 12:21:59 Cigarette smoker 25158319 F17.210 Contemplat eder, given current health problems. Epigastric pain 69735809 R10.13 Improved from previous, still undergoing work-up. Currently the working explanatio n is that he had an ulcer which has resolved (was not seen on endoscopy but had anemia, severe epigastric pain, and occult blood in stool). He does have risk factors for gastritis/ PUD (smoking, heavy caffeine use, stress). He has since stopped caffeine, and reduced smoking. At this point, he is fit to return to work with restrictio ns while we continue the work-up. He has f/u with GI to discuss the results of gastric biopsy.Wor k note given to return to work 08/06/2020 with restrictio ns until 10/08/2020. [id number] Zaria Cerrato MD , [facility], OFFICE [address] [place] [address] 08/10/2020 10:37:49 08/10/2020 11:07:10 Cigarette smoker 15657796 F17.210 Cut down a lot, stopped nicotine vape. Epigastric pain 77724180 R10.13 Severe epigastric pain with dizziness with esophagiti s on recent endoscopy is presumably from severe acid reflux. Not improved with omeprazole 20mg BID.-try increasing omeprazole to 40mg qAM and 20mg in the eveings. If no improvemen t in a few days, can increase to 40mg in mornings and evenings. If still no improvemen t, next step would be to switch PPI.-Work note given to return to work 08/13/2020 with restrictio ns until 10/08/2020. It seems GI is the source of this (EKG, holter normal), however if sx persist despite switching PPI, might consider echocardio gram to rule out cardiac valve disease given dizziness (although his symptoms not exertional ). [id number] Ashish Rao MD , [facility], OFFICE [address] [place] [address] 6 09/14/2020 16:39:19 09/17/2020 08:53:39 Cigarette smoker 91468053 F17.210 - wants to try the gum - has cut back to 5 cig per day - quit the vape Tobacco user 223048126 Z 72.0 Acute sinusitis 81312671 J01.90 - Start Augmentin and complete full course even if your symptoms resolve. - You can start a yogurt a day or probiotic to help prevent yeast infections or GI symptoms. - If you develop a fever or worsening symptoms, return to the office. - Increase your fluid intake. - Try over the counter Mucinex or ibuprofen for symptom relief. [id number] Stella Padron MD , [facility], OFFICE [address] [place] [address] 11/21/2020 14:53:09 11/23/2020 15:50:35 Cigarette smoker 36704059 F17.210 Tobacco user 621449210 Z 72.0 Recurrent acute otitis media of bilateral ears 7409046623 876556 H66.93 -unclear cause of recurrent AOM and sinus infections , will send for ENT eval. Acute otitis media 30546 03 H66.92 -AOM on exam of left ear -start z-ishmael, proper use of medication s, side effects, monitoring and expectatio ns were discussed with the patient Gastroesop hageal reflux disease 696244445 K21.9 -ongoing concern -discussed smoking cessation -start famotidine , proper use of medication s, side effects, monitoring and expectatio ns were discussed with the patient Dizziness 507930145 R42 -suspect dizziness secondary to inner ear issues -start meclizine for sx management [id number] Stella Padorn MD , [facility], OFFICE [address] [place] [address] 11/30/2020 15:56:47 12/03/2020 12:28:36 Adult health examination 347212557 Z00.00 see Risk Assessment and Lifestyle Change Counseling section above Counseling 463194877 Z71 .9 Depression screening 171 811448 Z13.31 depression screening tool administer ed, entered into emr, scored and discussed, time greater than 7.5 minutes Screening for alcohol abuse 073523899 Z13.39 Cigarette smoker 1158176 7 F17.210 Tobacco user 450640158 Z 72.0 Gastroesop hageal reflux disease 536103849 K21.9 Vertigo 633359954 R42 [id number] Zaria Cerrato MD , [facility], OFFICE [address] [place] [address] 12/05/2020 15:27:43 12/07/2020 10:29:10 Vertigo 754416848 R42 -continue meclizine as needed for dizziness -start vestibular PT Recurrent acute otitis media 068218106 H65.199 -start amoxicilli n, patient prefers amoxicilli n alone to augmentin, proper use of medication s, side effects, monitoring and expectatio ns were discussed with the patient -continue with probiotics especially given frequent antibiotic use -start flonase -f/u with ENT due to frequent ear infections [id number] Norma Campbell, PT Physical Therapy, [facility] [address] [place] [address] 12/13/2020 12:40:56 12/13/2020 16:32:12 Vertigo 080045427 R42 Patient is a 30-year old {{female m carlotta*}} who presents to physical therapy with a 5-6 month history of dizziness which has not improved. Physical examinatio n revealed impaired convergenc e and vertical saccades which is more pronounced when looking inferiorly . Suspect vertigo due to sinusitis. Patient has {{signific ant modera te* mild}} functional limitation in their {{activiti es of daily living act ivities of daily living and work capacity a ctivities of daily living and exercise capacity* activities of daily living and recreation }}. {{His* Her Their}} primary limitation s are with movements of the upper extremitie s and visual tasks. Skilled physical therapy is indicated to safely and progressiv maura address impairment s and functional limitation s as outlined below. Patient is a {{good cathy r* poor}} candidate for physical therapy due to active lifestyle, good support system, and motivation to actively participat e in {{his* her their}} plan of care. Progress may be limited by persistent sinus infection. Patient Goals: 1. Return to usual activities without limitation . Clinical Goals: In 4-6 weeks, patient will: 1. Demonstrat e symmetric convergenc e of 4inches. 2. Perform vertical saccades without increase in symptoms. 3. Demonstrat e independen ce with HEP for habituatio n exercises, and self care techniques to decrease risk of recurrent symptoms. Treatment Plan: Patient to return for {{4 6 8 10 *}} visits over {{4 8 12*} } weeks. We expect significan t change in pain, impairment and function in this time frame. Treatment to Include: Continuing assessment , therapeuti c exercise, patient education, HEP (initiated ), manual therapy PRN, modalities PRN. [id number] NARAYAN Ruiz , [facility], OFFICE [address] [place] [address] 02/25/2021 16:47:55 02/26/2021 14:21:49 Acute upper respiratory infection 14687379 J06.9 Acute pharyngitis 243093 003 J02.9 POC strep negative, will send culture.Di scussed with pt recommend COVID testing and quarantine as he is not vaccinated , pt would like to arrange himself with [facility]Discus sed supportive care, will contact the office if no improvemen t or any worsening symptoms. [id number] Stella Padron MD , [facility], OFFICE [address] [place] [address] 04/22/2021 13:27:12 04/22/2021 14:09:07 Cigarette smoker 04135941 F17.210 Tobacco user 747270011 Z 72.0 Paresthesi a of upper limb 37711476 R20.2 Neck pain 75248201 M54.2 [id number] Stella Padron MD , [facility], OFFICE [address] [place] [address] 6 05/14/2021 11:53:45 05/19/2021 19:54:16 Cigarette smoker 34407832 F17.210 Tobacco user 432235274 Z 72.0 Vertigo 380149510 R42 Neuropathy of upper limb 729811163 G56.90 [id number] Giovany Carver MD , [facility], OFFICE [address] [place] [address] 6 08/26/2021 14:28:59 09/13/2021 09:33:40 Myofascial pain 962949046 M79.10 Tobacco de pendence syndrome 41887349 F17.200 5 a day , not ready to quit at this time Idiopathic peripheral neuropathy 67381378 G60.9 neurology has been consulted, will try gabapentin [id number] Giovany Carver MD , [facility], OFFICE [address] [place] [address] 6 01/05/2024 11:49:36 01/06/2024 10:50:30 Nicotine dependence 91130709 F17.200 We discussed your smoking/va ping today for more than 3 minutes. Cigarette/ pod use is the leading cause of preventabl e disease, disability , and in the [place]. We talked about tools and medication s available to help you in smoking/va ping cessation. We discussed utilizing our smoking cessation cross country and track and field coach and online resources. Your personal goal: hardly smoking at this time , 1 or 0 a day Essential hypertension 96747516 I10 elevated Chronic ab dominal pain 580003357 R10.9 Anxiety 67092789 F41.9 [id number] Stella Padron MD , [facility], OFFICE [address] [place] [address] 03/18/2024 11:55:36 03/18/2024 13:10:28 Small bowel bacterial overgrowth syndrome 623274089 K63.8219 reviewed GI consult 02/18/24 with pthe will reach out to them about imaging, Per consult note, imaging is next step if symptoms not improved. Essential hypertension 98802033 I10 HTN - NOT at goal of less than 130/80 per AHA guidelines . will use lisinopril 5 mg daily and discontinu e losartanwi ll f/u in 4 weeks with labs prior. Continue low salt diet of less than 1500 mg of sodium per day. The [place] [employer] n (AHA) recommends 30 minutes of moderate physical activity 5 days a week. A Mediterran jacinto type of diet and a plant based diet is recommende d, review the website: [employer]. [employer]. The DASH diet is also recommende d. * Review this website: https://[employer]/al parviz-about-go od-and-otf ap for healthy inexpensiv e meals. * For any changes in your medication regimen, please call in the interim if with any intoleranc e to the medication . [id number] Stella Padron MD , [facility], OFFICE [address] [place] [address] 04/14/2024 15:40:07 04/14/2024 17:07:39 Nicotine dependence 13895674 F17.200 We discussed your smoking/va ping today for more than 3 minutes. Smoking tobacco is the leading cause of preventabl e disease, disability , and in the [place]. Inhaling aerosolize d nicotine is widely believed to be safer than combustibl e tobacco, but still exposes people to numerous harmful substances , heavy metals like lead, and cancer-cau sing agents. Nicotine is harmful to developing brains and can disrupt the formation of brain circuits that control attention, learning, and susceptibi lity to addiction. We talked about tools and medication s available to help you in smoking/va ping cessation. We discussed utilizing our smoking cessation cross country and track and field coach and online resources. Your personal goal: Essential hypertension 61793801 I10 You have chronic hypertensi on that is controlled . Your blood pressure is at goal <130/80. Continue current medication (s). Follow up for blood pressure check in 6 months with labs. Please limit your intake of salt to 1500 mg daily, dairy products, processed foods, alcohol, and caffeine. Read labels. Increase vegetables and fruits (high fiber). Please try to participat e in 30 minutes of activity daily. Please try to maintain a healthy weight. Check your blood pressure at least 1-2 times each month at [facility] the same time of day with 10-15 minutes of quiet rest prior to taking blood pressure. Make sure that your feet are flat on the floor and back upright resting on chair. Empty your bladder before taking your blood pressure. Please update us if your home blood pressures are not at goal. Call with any concerns or questions. Small yee l bacterial overgrowth syndrome 144391443 K63.[address] scan scheduled, and FMLA form completed today for SIBO symptoms and migraines. referral to [facility] for guidance Anxiety 88893232 F41.9 will check in with father, if taking anything other than benzos Migraine 03530750 G43.90 9 FMLA form completed today for SIBO symptoms and migraines. FMLA copy in chart [id number] Stella Padron MD , [facility], OFFICE [address] [place] [address] 6 05/19/2024 15:23:55 05/19/2024 17:42:54 Essential hypertension 47154336 I10 HTN - NOT at goal of less than 130/80 per AHA guidelines . Increase lisinopril to 10 mg daily and pt will send readings via portal.Con tinue low salt diet of less than 1500 mg of sodium per day. The [place] [employer] n (AHA) recommends 30 minutes of moderate physical activity 5 days a week.A Mediterran jacinto type of diet and a plant based diet is recommende d, review the website: Oldwayspt. org. The DASH diet is also recommende d.* Review this website: https://kale wilcox.MetraTech/al l-about-go od-and-otf ap for healthy inexpensiv e meals. Migraine [id number] G43.90 9 FMLA form completed today for SIBO symptoms and migraines. FMLA copy in chart Small yee l bacterial overgrowth syndrome [id number] K63.8219 SIBO dx by Hamp GIFMLA form completed today for SIBO symptoms and migraines. [id number] Paula Perez RDN, LDN, [facility] Nutrition -[facility] [address] [place] [phone] 06/27/2024 15:30:52 06/28/2024 14:35:46 Small bowel bacterial overgrowth syndrome [id number] K63.8219 [id number] Stella Padron MD , [facility], OFFICE [address] [place] [phone] 09/08/2024 17:08:19 09/12/2024 14:33:44 Epigastric pain [id number] R10.13 Gastrointe stinal DistressRe cent onset of abdominal pain, diarrhea, and body aches, possibly related to doxycyclin e use. History of small bowel issues.-Di scontinue doxycyclin e.-Start probiotic. -Consider Imodium for persistent diarrhea.- Consider Maalox or Tums for stomach discomfort .-Use famotidine 20mg twice daily.-Con student specialist stool studies if diarrhea persists after discontinu ation of doxycyclin e. Cough 75652028 R05.9 Assessment and PlanCoughR ecent onset of breathing difficulty and lung spasms. Recent treatment with doxycyclin e, prednisone , and albuterol. Chest X-ray was normal. Breathing has improved but not resolved completely .-Continue albuterol as needed.-Co nsider repeat chest X-ray if symptoms worsen. 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 Ubrelvy provides partial relief. Further evaluation needed for potential long COVID.; - Refer to neurologis t at [facility]. feels that Ubrelvy is not effective- Consider neuropsych ological evaluation with Dr. Orozco. Active or passive immunization [id number] Z23 Td/Tdap: declined 01/05/24 PJ, declines 05/19/24 cc declines 10/20/24 as Flu: declines flu vaccine 11/20/2016 . Declines 05/28/18 DO, pt declines 08/23/18 KRB declines 06/17/19 sj, declined 09/06/19 LZ Declined 07/20/2020 JEANNETTE Declines 08/01/2020 JEANNETTE, declines 09/14/20-ah declines 04/22/21 as advised 05/14/21 as, Declined 08/26/2021 LZ, declines 05/19/24 cc Essential hypertension 88900767 I10 HTN - at goal of less than 130/80 per AHA guidelines . Increase lisinopril to 10 mg dailyConti nue low salt diet of less than 1500 mg of sodium per day. The [place] Heart Associ[employer] n (AHA) recommends 30 minutes of moderate physical activity 5 days a week.A Mediterran jacinto type of diet and a plant based diet is recommende d, review the website: OldMOBi-LEARNpt. org. The DASH diet is also recommende d.* Review this website: https://kale wilcoxYakimbi/al l-about-go od-and-otf ap for healthy inexpensiv e meals. Small yee l bacterial overgrowth syndrome [id number] K63.8219 SIBO dx by Denilson MCDONALD managed with high-carb diet, improving symptoms. Nutritioni st retiring, retain dietary recommenda tions.- Continue high-carb diet.- Retain dietary recommenda tions. Memory recall finding 22 [id number] R41.3 referral to neuropsych for eval Health Concerns Section Related Observation LastModified by Organization Detai ls LastModified Time None Recorded Concern Status LastModified by Organization Details LastModified Time None Recorded Advance Directives Directive None Recorded Payers Encounter Date Sequence Insurance Name Policy Number Policy Castillo Covered Member ID Castillo Member ID Guarantor Name 05/19/2024 1 [place] [id number] Giovany Trejo [id number] Giovany Trejo 06/27/2024 1 [place] [id number] Giovany Trejo [id number] Giovany Trejo 09/08/2024 1 [place] [id number] Giovany Trejo [id number] Giovany Trejo 10/20/2024 1 [place] [id number] Giovany Trejo [id number] Giovany Trejo 11/14/2024 1 [place] [id number] Giovany Trejo [id number] Giovany Trejo Notes Date Note Type Note Provider Name and Address Organization Details Recorded Time 4 text/html here for completion of FMLAchronic migraine and SIBOhas Ubrelvy for [facility]recent[facility] SIBOreferral to restaurant worker for diet recommendations.Jun 2020 start of symptomsFMLA start Apr 2024 for 1 yearintermittent leave, estimated twice a week, 1 full work day if neededHBPM usually elevated diastolic Stella Padron MD [address] [place] [address], [phone], [facility] 05/19/2024 21:02:44 4 text/html Nutrition/Food QuestionnaireReported bypatient.What is your health goal?other (manage SIBO) Appetite or GI issuesgas and bloating Occupation and working hours: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, 5-6 days 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) Who lives at home with you:others (girlfriend); shopping self; cooking self Habits / emotions that might get in the way of eating well:too tired; social situations Anything gets in the way of learning?nothing Beverages:water; caffeine (coffee, tea, chocolate, energy drinks) (coffee, (no sugar, skim milk); Sugar free Red Bull occasionally) Usual eating schedule:Breakfast/First Meal (nothing); Lunch/Second meal (nothing); Dinner/Third meal (last night sushi); doesn't eat during the day to manage the bloating, inflammation, Food Preferences and Frequency:grains ; fruits; vegetables; poultry; fish; milk cow - skim (unsweetened almond milk in the past); cheese; nuts, seeds, nut buttersNotes:lactose an issueNutrition EncounterReported bypatient.Patient HistoryPatient chief nutritional complaint: (SIBO) Nutition/dietaryDiet Experience/subjective: (no matter what I eat, I get bloated; I find I can work best if I avoid eating all day; when I eat I'm too uncomfortable.) Recent Lab testsOther: (BMP unremarkable 04/2024) Paula Perez, RDN, LDN, [address], [place], [phone], [facility] 06/27/2024 20:21:57 5 text/html URIReported bypatient.Symptomshome COVID test 3 weeks ago-breathing, spasms w/ difficulty breathing- last weekCXR , doxy, prednisone, albuterol started- 1 more day of doxy and inhaler-Breathing is a little better-Last 2 days, aches, chills stomach burning, left side of abd felt swollen-Last night night dirrhea-[facility] Walk in Patient informed and consents to use of AI assisted recording to improve documentation of visit History of Present IllnessGiovany, a patient with a history of small bowel issues, presents with ongoing respiratory and gastrointestinal symptoms. Approximately three weeks ago, he began experiencing severe breathing difficulties, including lung spasms. Despite a week-long course of doxycycline, prednisone, and albuterol prescribed by an urgent care provider, his symptoms have not significantly improved. He reports that his breathing has somewhat improved, but overall, he does not feel much better.In addition to his respiratory symptoms, Giovany has been experiencing severe gastrointestinal symptoms, which he believes may be related to the doxycycline. Over the past two days, he has had body aches, chills, burning sensations in his small intestine, and diarrhea. He describes a sensation of swelling on one side of his colon, which has caused significant discomfort and disrupted his sleep. He has not checked his temperature but does not feel feverish.Giovany has a history of small bowel issues and a sensitive stomach, which may be contributing to his current gastrointestinal symptoms. He has not been taking a probiotic while on the doxycycline. He has no history of asthma and has tested negative for COVID-19 at home.Past Medical History- History of small bowel issues (sensitive stomach)Medications- Doxycycline- Albuterol inhaler- Has Tums at home ResultsLABSCOVID-19 Test: NegativeRADIOLOGYChest X-ray: Normal (09/01/2024) Stella Padron MD [address] [place] [address], [phone], [facility] 09/08/2024 19:15:06 5 text/html Patient informed and consents to use of AI assisted recording to improve documentation of visit.Word substitution may have occurred and may have gone unnoticed and uncorrected. Patient presents for follow-up of their hypertension.Updates from last visit:Home blood pressures: {{at goal* not at goal}}Taking medications daily as prescribed: {{yes* no n/a}} taking 5 mg lisinoprilSide effects from medications: {{yes no*}}Low salt diet: {{yes* no}}Regular Exercise: {{yes no*}}Caffeine intake: {{yes* no}}Alcohol consumption: {{yes no}}Tobacco use: {{yes no}}Daily stress level: {{min* mod max}} Denies any new shortness of breath, cough, dizziness, chest pain, nausea, vomiting, leg swelling or weakness. An independent historian contributed to the patient's information for this visit: {{yes no*}}.Patient is {{able* not able}} to manage his medications The patient presents with persistent brain fog and fatigue. as well as HTN med mgtThey have been experiencing persistent brain fog and fatigue since kidney failure and multiple COVID-19 infections last year. The sensation is described as 'extreme brain fog' similar to 'the worst hangover', with symptoms of blurred vision, dizziness, and vertigo-like feelings. These symptoms have been constant for years, significantly impacting daily life, including their ability to work, for which they are on FMLA for up to two days due to headaches and abdominal issues.They experience occasional migraines and use Ubrelvy for relief, which helps by inducing sleep but is not a complete solution. They have a follow-up appointment with their previous neurologist, Shaina Freitas, at [facility] to further investigate these symptoms.They report memory issues, describing themselves as 'very forgetful' and 'clumsy', with some slurring of words, although they do not feel intellectually challenged.They have a history of SIBO and have been seeing a restaurant worker, Paula, who recommended a high-carb diet that has helped with stomach issues but contributed to weight gain, increasing from 215 pounds last year to approximately 235 pounds currently. They have quit smoking and are attempting to exercise more to manage their weight.They have a history of chest pain, evaluated multiple times and determined not to be cardiac in origin, possibly muscular. They are currently taking lisinopril 5 mg once a day for blood pressure management, having reduced from 10 mg due to drowsiness. No current chest pain or shortness of breath. 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 days per week sometimes 13 hour days) Who lives at home with you:others (girlfriend); shopping self; cooking self Habits / emotions that might get in the way of eating well:too tired; social situations; too busy; work schedule Anything gets in the way of learning?nothing If you need to make changes in your eating, what would make it most challenging?schedule Beverages:water; caffeine (coffee, tea, chocolate, energy drinks) (coffee with almond milk) Usual eating schedule:Breakfast/First Meal (nothing; coffee/almond milk); Lunch/Second meal (nothing); Snack (plain corn chips); Dinner/Third meal (brown rice noodles, sauted shrimp, butter); yesterday: had Belarusian toast out to breakfast, maple syrup- didn't feel well (brain fog, fatigue, etc most of the day) Food Preferences and Frequency:grains (rice or corn based); fruits (berries- blue, raspberries, strawberries (?),); vegetables (small amount of spinach); poultry; fish; shellfish; beef and pork (occasional beef); eggs (occasional); milk cow - skim (unsweetened almond milk in the past); cheese; nuts, seeds, nut butters; salad dressings, mayoNotes:lactose an issueNutrition EncounterReported bypatient.Patient HistoryPatient chief nutritional complaint: (SIBO) Nutition/dietaryDiet Experience/subjective: (feeling a lot better, Low FODMAPs diet has helped; I am very restricted though and want to figure out how to add more foods) Recent Lab testsOther: (10/14/24: BMP unremarkable;) Physical Activity habitsOther (not very active; works 13 hour days) Puala Perez RDN, LDN, [address], [phone], [facility] 11/15/2024 08:46:16
--- OUTSIDE RECORDS SUMMARY | 2024-12-14 15:58 | XMS_ITS | Data Portability ---
Author Organization [facility] [employer], Family Pet Address [address] [place] [phone] Care Team Providers Care Merchandise Processor Name Role Phone VASU COOLEY Referring Provider Un available VASU COOPER Referring Provider [facility] OTHER Assessment Encounter Date Assessment Date Assessment [...] at your earliest convenience at your normal [facility] reference laboratory in [place] [facility] B12 studies, Lyme titer Please ask [...] right-sided sensations. Nasrin Pastrana MBA, PT [address] [address] .[employer] We will send a referral to the physical therapist for physical therapy. It is your responsibility to make the initial phone call to the above number to set up an initial appointment Follow-up in [address] Fazal Spring [facility] mrossen Not available 08/15/2021 08:56:46 Plan of Treatment Reminders Order Date Submit Date Provider Last Modified By Organization Details Last Modified Time Details Appointments None recorded. Lab lyme antibody screen, EIA/santa, serum - A69.20 2020 021 [email or web address] 1 [facility] (Centralized Electronic Ordering - All Locations), Patient Can Go To The Location Of Their Choice, [id number] 13:14:08 homocystein e, serum or plasma - D51.9 2020 021 FAREED [facility] (Centralized Electronic Ordering - All Locations), Patient Can Go To The Location Of Their Choice, [id number] 16:56:07 mma (methylmalo pili acid), serum - D51.9 2020 021 FAREED [facility] (Centralized Electronic Ordering - All Locations), Patient Can Go To The Location Of Their Choice, [address] 02:06:10 vitamin B12, serum - d51.9 2020 FAREED [facility] (Centralized Electronic Ordering - All Locations), Patient Can Go To The Location Of Their Choice, [address] 18:58:43 folate, serum - d51.9 2020 FAREED [facility] (Centralized Electronic Ordering - All Locations), Patient Can Go To The Location Of Their Choice, [id number] 18:58:44 Referral neurologic physical therapist referral - for possibility of myofascial syndrome related to for abnormal sensations in right face arm and leg, tender right sternocleid omastoid but no clear referral, levator scapula possibly with related referral; please assess for myofascial syndrome related to abnormal right-sided sensations. Brain MRI unrevealing 2020 layo 1 Nasrin Pastrana PT, [address] [place] [address], [address], 11:59:19 Procedures None recorded. Surgeries None recorded. [...] the new assay . Not Available [facility] (Centralized Electronic Ordering - All Locations) Patient Can Go To The Location Of Their Choice, 07/30/2021 16:56:06 07/30/2007/30/2021 VITAM IN B12 vitamin B12 1399 pg/mL (232-1 245) high Not Available [facility] (Centralized Electronic Ordering - All Locations) Patient Can Go To The Location Of Their Choice, 07/30/2021 18:58:43 07/30/2007/30/2021 FOLIC ACID folic acid 7.8 NG/mL (4.5-3 2.2) Not Available [facility] (Centralized Electronic Ordering - All Locations) Patient Can Go To The Location Of Their Choice, 07/30/2021 18:58:44 07/30/2008/06/2021 LYME AB W/REF YADI lyme Ab w/reflex [...] . Testi ng perfo rmed by the [facility] ex 2200 multi plex flow immun oassa y syste m Not Available [facility] (Centralized Electronic Ordering - All Locations) Patient Can Go To The Location Of Their Choice, 08/06/2021 10:37:56 07/30/2008/07/2021 METHY LMALO PILI ACID, SERUM methylmaloni c acid, serum 139 Refer ence range : 0 to 378 Unit: nmol/ L Test perfo rmed at [facility] [place] , [address] [facility] , [place] [address] Not Available [facility] (Centralized Electronic Ordering - All Locations) Patient Can Go To The Location Of Their Choice, 08/07/2021 02:06:09 07/09/2006/28/2021 MRI, brain , w/wo contr ast No observ ation record ed. [email or web address] [facility] [address] [address], [place], [address], 07/15/2021 11:56:11 07/09/20 21 07/09/2021 MRI, brain , w/wo contr ast No observ ation record ed. [email or web address] Not Available 07/15 11:57:33 Result Notes None recorded. Procedures Surgical History Date Name Laterality Status Provider Name and Address Organization Details Recorded Time 08/15/2021 DATA REVIEW completed Fazal Spring MD [address] [place] [address], [phone], [facility] 08/15/2021 08:50:16 Imaging Results Imaging Date Name Status LastModified by Organiz ation Details LastModified Time 06/28/2021 MRI, brain, w/wo contrast completed [email or web address] [facility] [address] [address], [place], [address], 07/15/2021 11:56:11 07/09/2021 MRI, brain, w/wo contrast [...] Updated DateTime 07/08/2021 182.88 cm 31.2 kg/m2 691214.2 5 g 12 /min [facility]/08/[facility]21 11:01:58 Social History Question Answer Notes LastModified by Organizat ion Details LastModified Time Tobacco Smoking Status Current Every Day Smoker Nancy Hustisford null [facility] 07/08/2021 11:07:25 What Is Your Level Of Alcohol Consumption? None Information not available 07/08/2021 What Is Your Level Of Caffeine Consumption? Heavy Information not available 07/08/2021 What Is The Highest Grade Or Level Of School You Have Completed Or The Highest Degree You Have Received? 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 84033480 G24.1 Dystonia 38480267 G24.3 Health Concerns Section Related Observation LastModified by Organization Detai ls LastModified Time None Recorded Concern Status LastModified by Organization Details LastModified Time None Recorded Advance Directives Directive None Recorded Payers Encounter Date Sequence Insurance Name Policy Number Policy Castillo Covered Member ID Castillo Member ID Guarantor Name 07/08/2021 1 [facility] Giovany Trejo [id number] Giovany Trejo 08/15/2021 1 [facility] Giovany Trejo [id number] Giovany Trejo Notes Date Note Type Note Provider Name and Address Organization Details Recorded Time 07/08/2021 text/html He presents for initial neurology consultation for assessment and management of altered sensations of 3 different types, the first type beginning late June 2021. 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 He is unaccompanied. Olayinka rosas a year ago to the day, he [...] was just going to drop, pass out? But he never did; and really bad abdominal pain? Not really nausea, but bad pain. Work-up [...] this is also part of this symptom? t his only happens with his right upper extremity. [...] it but there is a static, tingling fpmt-nyl-iqsbxim character. The sensation began in the right side of his face. However it soon extended through his right upper extremity from shoulder to the tips of his fingers and, milder? A little pronounced in his right lower extremity. This has also continued daily and continuous and also fluctuates like a wave. He can think of nothing that makes it better or worse, no triggers. It has reduced in prominence in recent times compared to the prominence at the beginning of the sensation in April 2021. Fazal Spring MD [address] [place] [address], [phone], [facility] 07/08/2021 12:25:48 08/15/2021 text/html Follow up of alt ered sensations of 3 different types, the first type beginning late June 2021. 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 He is unaccompanied.Since July 08, 2021 neurology [...] was just going to drop, pass out? But he never did; and really bad abdominal pain? Not really nausea, but bad pain. Work-up [...] this is also part of this symptom? t his only happens with his right upper extremity. [...] it but there is a static, tingling vjbv-qqt-nkidxni character. The sensation began in the right side of his face. However it soon extended through his right upper extremity from shoulder to the tips of his fingers and, milder? A little pronounced in his right lower extremity. This has also continued daily and continuous and also fluctuates like a wave. He can think of nothing that makes it better or worse, no triggers. It has reduced in prominence in recent times compared to the prominence at the beginning of the sensation in April 2021. Fazal Spring MD [address] [place] [address] [place], [phone], [facility] 08/15/2021 08:57:22
== END 2024-12-14 14:31 | disposition home or self-care (01) ==
LOC: HO.HSMS 13:45
PROVIDERS: PCP Family Medicine; Visit Provider Nurse Practitioner Family
DX: H53.9 Unspecified visual disturbance (principal); G43.909 Migraine, unspecified, not intractable, without status migrainosus; R42 Dizziness and giddiness; G43.809 Other migraine, not intractable, without status migrainosus
CPT/HCPCS: 99214

== ENCOUNTER 2025-08-18 08:33 | Outpatient (AMB) | payer BC, SELFPAY ==
[2025-08-18 08:36] VITALS: BP 122/88; PULSE 72; TEMP 36.6; O2SAT 97; BMI 31.9
--- NOTE | 2025-08-18 08:36 | AM.OFFWIN_ITS ---
Intake Vital Signs 08/18/25 08:36 Height 6 ft Weight 235 lb BMI 31.9 BP 122/88 Blood Pressure Location Lt brachial Position Sitting Pulse 72 Pulse Source Pulse Oximeter Temp 98 F Temp Source Oral Pulse Oximetry (%) 97 Oxygen Delivery Method Room Air Intake Visit Reasons: EP Left ear pain, congestion, body aches Intake Note: Patient presents c/o left ear pain, fatigue, sinus congestion, body aches, nausea x2 weeks. Patient tested positive for Flu B 2 weeks ago. Patient Tobacco Use Status: Former Tobacco user Allergies cat dander Allergy (Severe, Verified 08/18/25 08:39) Facial Swelling mold Allergy (Intermediate, Verified 08/18/25 08:39) Shortness of Breath weed pollen Allergy (Unknown, Verified 08/18/25 08:39) Unknown Do you need a note to return to daycare/school/sports/work: No HPI HPI Comments History of Present Illness Details This is a 34-year-old male presenting for evaluation of left ear discomfort. Patient states 2 weeks ago he developed sinus congestion, left ear discomfort, body aches with a minimal cough. He denies ever having any fevers o r shortness for breath. Patient tested positive with an at home influenza kit; he has not been immunized against influenza this year. Patient states that his symptoms are slowly resolving but he continues to have left ear pain. [facility] Medical History Sinusitis Hospital discharge follow-up Milk alkali syndrome Acute hypokalemia ROSCOE (acute kidney injury) Sinusitis H/O gynecomastia Seasonal allergies Nephrolithiasis Surgical History History of esophagogastroduodenoscopy (EGD) S/P excision of lipoma Family History Maternal Grandfather Liver cancer Paternal Grandmother Cancer of unknown origin Mother No problems noted. 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 Cognitive needs: No Hearing needs: No Vision needs: Yes (glass/contacts) Review of Systems Const All systems reviewed & are unremarkable except as noted in HPI and below Reports no additional complaints, Denies chills and Denies night sweats Eyes Reports no additional complaints ENT Reports otalgia (left ear), Denies facial pain, Reports nasal congestion and Denies odynophagia Card Denies chest pain and Denies dyspnea Resp Reports cough, Denies dyspnea and Denies stridor GI Reports no additional complaints and Denies odynophagia Musc Reports no additional complaints Skin/Breast Reports system reviewed and no additional complaints, except as documented Neuro Reports no additional complaints Psych Reports no additional complaints Endo Reports no additional complaints Aller/Immun Reports no additional complaints Physical Exam Vital Signs: Last Vital Signs Temp 98 F 08/18/25 08:36 Pulse 72 08/18/25 08:36 BP 122/88 08/18/25 08:36 Pulse Ox 97 08/18/25 08:36 Oxygen Delivery Method Room Air 08/18/25 08:36 BMI result Body Mass Index 31.9 Const General: cooperative, healthy appearing, comfortable, no acute distress, well developed, alert, awake and Physically active; No lethargic Nutritional Appearance: average body habitus Orientation/consciousness: patient oriented x3 and No lethargic Limitations: no limitations HEENT Head: Yes normal to inspection and Yes normocephalic Ears: hearing grossly normal bilaterally, external ears normal, TM normal on the right and left TM abnormal (cerumen adhered to TM 3o'clock -> 5o'clock positioning) General nose exam: Normal external nose present Face and sinus: Yes normal facial exam Mouth: Normal oral and palatal mucosa present Throat: Yes posterior oropharynx normal Eyes General: appearance normal, both eyes and all related structures Neck Lymphatic: no lymphadenopathy noted Resp Effort & Inspection: normal respiratory effort, able to speak in complete sentences, abnormal respiratory pattern, no audible wheezes, no cough and not tachypneic Auscultation: clear to auscultation bilaterally Cardio Rate: regular rate Rhythm: regular rhythm Skin General skin exam: no rashes or lesions noted Neuro General: patient oriented x3 Psych Appearance: grossly normal Mental Status: mental status grossly normal Insight: Good insight present (Psych) Judgement: Good judgement present (Psych) Assessment & Plan Assessment & Plan (1) Impacted cerumen of left ear: Comment: There is no evidence of an otitis media or otitis externa, there is cerumen adhered to the TM of the left ear. Code(s): H61.22 - Impacted cerumen, left ear Plan: Debrox drops or similar daily as directed. Follow up only as needed. Coding Level of Care Code Est Pt Level 3 (60351) Diagnoses Impacted cerumen of left ear H61.22 Time Spent (min) 20
== END 2025-08-18 09:36 | disposition home or self-care (01) ==
PROVIDERS: PCP Family Medicine; Visit Provider Physician Assistant
DX: H61.22 Impacted cerumen, left ear (principal)